=== PATIENT | male | born 1940 | race Caucasian/White ===

== ENCOUNTER 2018-09-07 06:35 | Inpatient (IN) | payer MEDICARE, OTHER ==
--- NOTE | 2018-09-07 06:52 | ED ---
HPI Chest Pain - HPI Summary HPI Summary: Pt. is a 77 y.o male who presents to the with mild chest pain and increased shortness of breath over the last few days. Pt. with a hx of CABG, HTN, CHF, afib, and COPD. Pt. denies increased cough or fever. Denies abd. pain, V/D, urinary sxs. Pt. states he use to take a diuretic but stopped because he did not like the increased urination. Pt. lives at home with . He does not wear oxygen at this time. Symptoms are moderate in severity. Ambulation and activity makes sxs worse. Resting still makes sxs better . - History of Current Complaint Chief Complaint: EDChestPainROMI Time Seen by Provider: 09/07/18 06:51 Hx Obtained From: Patient Pain Intensity: 7 - Allergy/Home Medications Allergies/Adverse Reactions: Allergies Allergy/AdvReac Type Severity Reaction Status Date / Time ramipril Allergy Coughing Verified 09/07/18 06:56 Home Medications: Home Medications Aspirin [Aspirin EC] 81 mg PO DAILY 09/07/18 [History Confirmed 09/07/18] Folic Acid 800 mcg PO DAILY 09/07/18 [History Confirmed 09/07/18] Krill/[place]-3/Dha/Epa/Lipids [Krill Oil [place]-3] 1 cap PO DAILY 09/07/18 [ History Confirmed 09/07/18] Multivitamin with Minerals [One Daily Complete] 1 each PO DAILY 09/07/18 [ History Confirmed 09/07/18] Simvastatin TAB(NF) [Zocor 10 MG (NF)] 10 mg PO DAILY 09/07/18 [History Confirmed 09/07/18] PMH/Surg Hx/FS Hx/Imm Hx Previously Healthy: Yes Endocrine/Hematology History: Reports: Hx Anticoagulant Therapy - Coumadin Denies: Hx Diabetes, Hx Thyroid Disease Cardiovascular History: Reports: Hx Hypertension Denies: Hx Congestive Heart Failure, Hx Deep Vein Thrombosis, Hx Myocardial Infarction, Hx Pacemaker/ICD Respiratory History: Reports: Hx Chronic Obstructive Pulmonary Disease (COPD), Hx Pulmonary Embolism - Around 2011 Denies: Hx Asthma, Hx Lung Cancer, Hx Pneumonia GI History: Denies: Hx Gall Bladder Disease, Hx Gastrointestinal Bleed, Hx Ulcer, Hx Urosepsis History: Denies: Hx Kidney Stones, Hx Renal Disease Neurological History: Denies: Hx Dementia, Hx Migraine, Hx Seizures, Hx Transient Ischemic Attacks (TIA) Psychiatric History: Denies: Hx Anxiety, Hx Depression, Hx Schizophrenia, Hx Bipolar Disorder - Surgical History Surgery Procedure, Year, and Place: open heart, varicose veings, R knee Infectious Disease History: No Infectious Disease History: Denies: Traveled Outside the [place] in Last 30 Days - Family History Known Family History: Positive: Non-Contributory Negative: Cardiac Disease, Hypertension - Social History Occupation: Retired Lives: With Family Alcohol Use: Rare Substance Use Type: Reports: None Smoking Status (MU): Former Smoker Type: Cigarettes Amount Used/How Often: 1ppd Length of Time of Smoking/Using Tobacco: approx 40 yrs Review of Systems Positive: Chills Eyes: Negative ENT: Negative Positive: Chest Pain Positive: Shortness Of Breath. Negative: Cough Gastrointestinal: Other - abd. fullness Negative: Abdominal Pain, Vomiting, Diarrhea, Nausea Genitourinary: Negative Negative: dysuria Musculoskeletal: Negative Skin: Negative Neurological: Negative All Other Systems Reviewed And Are Negative: Yes Physical Exam Triage Information Reviewed: Yes Vital Signs On Initial Exam: Initial Vitals Temp Pulse Resp BP Pulse Ox 97.9 F 72 16 156/100 97 09/07/18 06:38 09/07/18 06:38 09/07/18 06:38 09/07/18 06:38 09/07/18 06:38 Vital Signs Reviewed: Yes Appearance: Positive: Well-Appearing - Pt. sitting up in bed in NAD. Talkative. Skin: Positive: Warm, Dry Head/Face: Positive: Normal Head/Face Inspection Eyes: Positive: Normal, EOMI, GINA Neck: Positive: Supple Respiratory/Lung Sounds: Positive: Clear to Auscultation, Breath Sounds Present. Negative: Rales, Rhonchi, Wheezes Cardiovascular: Positive: Normal, RRR Abdomen Description: Positive: Nontender, Soft Musculoskeletal: Positive: Normal, Strength/ROM Intact. Negative: Edema Left, Edema Right Neurological: Positive: Normal, CN Intact II-III Psychiatric: Positive: Affect/Mood Appropriate Diagnostics - Vital Signs Vital Signs Temp Pulse Resp BP Pulse Ox 09/07/18 06:38 97.9 F 72 16 156/100 97 - Laboratory Result Diagrams: 09/07/18 07:24 09/07/18 07:24 Lab Statement: Any lab studies that have been ordered have been reviewed, and results considered in the medical decision making process. Chest Pain Course/Dx - Course Course Of Treatment: Pt. presenting with mild CP and increased SOB. He is aferile. O2 saturation is 97% on RA which is normal. No signs of respiratory distress at rest. ECG done at 0639 shows afib at a rate of 84bpm, normal axis, not ST elevation or depression, similar to prior tracing. CBC unremarkable. CMP shows. Pt. ambulated on RA and became very SOB and O2 saturation dropped to 86% and pt. had to sit down. Pt. states this is very abnormal for him. Suspect secondary to mild CHF exacerbation. Case discussed with hospitalist, Dr. Cowart, who excepts pt. for admission. He recommends 20mg IV lasix. - Chest Pain Differential Diagnosis/HQI/PQRI: Acute MA, ACS, Angina, CHF, Chest Wall, Lower Respiratory Infection, Pulmonary Edema - Diagnoses Provider Diagnoses: CHF exacerbation Discharge - Sign-Out/Discharge Documenting (check all that apply): Patient Departure Patient Received Moderate/Deep Sedation with Procedure: No - Discharge Plan Condition: Stable Disposition: ADMITTED TO [facility] Referrals: Luis MENDOZA [employer] [employer]CHN[employer] [Primary Care Provider] - - Billing Disposition and Condition Condition: STABLE Disposition: Admitted to [facility]
[2018-09-07 07:38] LABS: ABS Basophils 0.1 10^3/ul (0-0.2); ABS Lymphocytes 1.7 10^3/ul (1.0-4.8); ABS Monocytes 0.6 10^3/ul (0-0.8); ABS Neutrophils 5.4 10^3/ul (1.5-7.7); Eosinophil % 0.4 %; Hematocrit 42 % (42-52); Hemoglobin 14.4 g/dL (14.0-18.0); Lymphocyte % 22.1 %; Mean Corpuscular HGB Conc 35 g/dL (31-36); Mean Corpuscular Hemoglobin 33 pg (27-31); Mean Corpuscular Volume 96 fL (80-94); Mean Platelet Volume 7.6 fL (7.4-10.4); Nucleated Red Blood Cells % 0.1; Platelet Count 171 10^3/uL (150-450); Red Blood Count 4.32 10^6 /uL (4.18-5.48); Red Cell Distribution Width 14 % (10-15); White Blood Count 7.8 10^3/uL (3.5-10.8)
[2018-09-07 07:49] LABS: Activated Partial Thrombo Time 29.4 seconds (26.0-38.0); INR 1.55 (0.82-1.09)
[2018-09-07 07:50] LABS: Albumin 4.1 g/dL (3.2-5.2); Albumin/Globulin Ratio 1.2 (1-3); BUN/Creatinine Ratio 12.5 (8-20); Calcium 9.8 mg/dL (8.6-10.3); EGFR African American 71.4 (>60); Globulin 3.3 g/dL (2-4); Magnesium 1.7 mg/dL (1.9-2.7); Total Bilirubin 0.8 mg/dL (0.2-1.0); Total Protein 7.4 g/dL (6.4-8.9)
[2018-09-07 07:51] LABS: Troponin I 0.01 ng/mL (<0.04)
[2018-09-07 08:42] LABS: TSH (Thyroid Stimulating Horm) 1.81 mcIU/mL (0.34-5.60)
[2018-09-07] MEDS ORDERED: Furosemide IV* 10 MG/ML 2 ML VIAL (20 MG) IV ONE (09:06)
[2018-09-07] MEDS ORDERED: Acetaminophen TAB* 325 MG PO ONE (09:09)
[2018-09-07] MEDS ORDERED: Magnesium Sulfate 2 GM IV* 2 GM/50 ML BAG IVPB ONE (11:30)
[2018-09-07 11:31] LABS: C Reactive Protein 1.33 mg/L (<8.01)
[2018-09-07] MEDS ORDERED: Enoxaparin(*) 100 MG/ML SYR SUBCUT ONE (11:33)
[2018-09-07 12:55] LABS: Erythrocyte Sed Rate 19 mm/Hr (0-19)
[2018-09-07] MEDS: amLODIPine TAB* 5 MG PO SCH (13:46)
[2018-09-07] MEDS ORDERED: Acetaminophen TAB* 325 MG ONE (14:00)
[2018-09-07] MEDS: Acetaminophen TAB* 325 MG PO PRN ×2 (14:02→21:12)
[2018-09-07] MEDS ORDERED: Warfarin TAB(*) 3 MG PO SCH (17:00)
[2018-09-07] MEDS: oxyCODONE TAB* 5 MG TAB PO PRN ×2 (17:16→21:12)
[2018-09-07] MEDS ORDERED: Albuterol/Ipratropium NEB.SOL* Albuterol 2.5 MG/Ipratropium 0.5 MG 3 ML INH PRN (17:31)
--- NOTE | 2018-09-07 19:23 | HP ---
CC: Dena Smith NP; Dr. William * HISTORY AND PHYSICAL: DATE OF ADMISSION: 09/07/18 PRIMARY CARE PHYSICIAN: Dena Smith NP CHIEF COMPLAINT: Shortness of breath and severe headache. SUBJECTIVE: This is a 77-year-old male presents to the emergency room for the constellation of symptoms, but it narrows down to 2 major is a headache, severe , posterior, been ongoing for more than 2 weeks, associated with increased shortness of breath and weakness. He visited the emergency room at [facility] for that complaint about 2 times, 1 about 3 weeks ago and 1 was 09/03/18, which is 3 days ago. I was able to obtain the record from 09/03/18 from [facility] where it shows that the patient visited for headache and weakness. He underwent CTA of the chest and CTA of the neck given his presentation of shortness of breath and the headache. The CTA of the neck shows patent carotid artery, no dissection. CTA of the chest was negative for any dissection or pathology. He was discharged with a diagnosis of acute headache. He continued to have these symptoms; therefore, he came into our facility as he is not happy and unpleased with the results so far in the past 2 ER evaluations at [facility]. In the emergency room at our facility, his initial workup included plain CBC which was normal, white count 7.8, hematocrit 42. His chemistry showed sodium 134, chloride 99, BUN 15, creatinine 1.2, potassium 4.0, lactic acid 1.7, magnesium 1.7. AST 19, ALT 13. Troponin 0.01. TSH 1.81 and BNP of 204. His INR is 1.5 and being subtherapeutic considering the fact he should be on Coumadin 9 mg. The patient was seen and evaluated by me in the emergency room. History was obtained as above. On further questioning, the patient tells me that he has been having significant lack of energy where sometimes his legs gives out and he had a fall about a week ago and he has been having more and more progressive dyspnea. We walked him in the emergency room on room air and his saturation dropped to 86%. Given the constellation of his symptoms of the headache and shortness of breath and positive congestive changes on his chest x-ray by my read, we will admit the patient to the inpatient service for CHF exacerbation associated with hypoxia along with severe headache of unknown etiology at the present time. PAST MEDICAL HISTORY: Limited to the history provided by the patient, which is slightly limited by memory recollection from the patient himself is as follows: 1. Hyperlipidemia. 2. History of atrial fibrillation. 3. History of coronary artery disease, status post CABG. 4. Hypertension. 5. History of COPD. 6. History of PE in 2011. MEDICATIONS: As listed in his ER intake: 1. Folic acid 800 mcg daily. 2. [place]y fish oil. 3. Multivitamin daily. 4. Amlodipine 10 mg daily. 5. Baby aspirin 81 mg daily. 6. Losartan 50 mg daily. 7. Zocor 10 daily. 8. Warfarin 9 mg at bedtime. ALLERGIES: He is allergic to RAMIPRIL. FAMILY HISTORY: Negative for any significant history of coronary artery disease or malignancy. SOCIAL HISTORY: He is retired. Quit smoking, used to smoke 1 pack a year; duration, he smoked for about 40 years. No alcohol. REVIEW OF SYSTEMS: As per HPI, significant for severe headache 10/10, posterior , minimal relief with Tylenol. Generalized diffuse body ache and weakness, shortness of breath with minimal exertion. No nausea or vomiting. Denies any chest pain. Denies any nuchal rigidity, blurry vision, or sensitivity to light. PHYSICAL EXAMINATION GENERAL: He is pleasant, cooperative during the exam, lying in bed, complaining of a headache. He is not in any respiratory distress; however, he does get dyspneic with examination. VITAL SIGNS: Temperature 97.4. Pulse 86. Respiratory rate 16. Satting 100%. Blood pressure 158/83. HEENT: Head and Neck: Normocephalic, atraumatic. Supple. No nuchal rigidity. I could not appreciate any carotid bruits or JVD. Moist mucous membranes. Extraocular muscles intact. LUNGS: Fine bibasilar crackles. No expiratory wheezing. ABDOMEN: Positive bowel sounds. Soft, nontender, nondistended. No rebound. No guarding. GENITALIA AND RECTAL: Exam deferred. EXTREMITIES: No pedal edema. Good peripheral pulse bilaterally. No calf tenderness. DIAGNOSTIC STUDIES/LAB DATA: CBC: White count 7.8, hemoglobin 14, hematocrit 42, platelets 171. INR 1.5, D-dimer less than 200. AB.48, pCO2 35, pO2 78 , bicarb 27, saturation 97% on room air. Chemistry: Sodium 134, potassium 4, BUN 15, creatinine 1.2, lactic acid 1.7, mag 1.7. AST 19, ALT 13. Troponin 0.01. TSH 1.81. Chest x-ray: By my read, I do see some cephalization more prominent in the lower one-third of both lung rabago. Normal cardiac silhouette. His EKG shows atrial fibrillation, rate controlled at 84, QTc 465, QRS 103. Stable when compared to his EKG from 06/11/16 with chronic AFib. ASSESSMENT AND PLAN: This is a 77-year-old male with history of coronary artery disease/CABG/atrial fibrillation; hyperlipidemia; chronic obstructive pulmonary disease; pulmonary embolism, on chronic warfarin, comes in for several complaints, more pronounced is his shortness of breath and hypoxemia along with severe headache persistent for greater than 2 weeks. 1. Hypoxemia, most likely secondary to congestive heart failure. I am going to obtain an echocardiogram to assess his LV function. He was given fluids in the emergency room, I am going to reverse it. We will place him on Lasix 20 mg IV x1 now and we will continue on Lasix p.o. 20 mg b.i.d. starting tomorrow. We will put him on telemetry. We will obtain serial cardiac enzymes to rule out any acute coronary syndrome. Further cardiac workup pending his troponin and echocardiogram. We will place him on 2 L nasal cannula and reassess his oxygenation if he continues to require O2 with exertion. 2. Headache, progressive, severe in the past 2 to 3 weeks. I was able to locate record from [facility] of 09/03/18, where he had CTA of the neck. I did not see that they had CTA of the head. Given his history that he fell about a week ago, being on Coumadin, I did request to have a stat CT of the brain in the emergency room. Pending results, we will probably follow up with MRI of the brain with and without contrast and Neurology consultation. We will hold the warfarin and Lovenox until his CT of the brain was obtained. Neurology consultation may be warranted. I do not see the eminent need to have LP at this time given that he is on Coumadin, he has no fever, no white count, but other possible etiology of headache such as subarachnoid hemorrhage should be entertained. Therefore, we will proceed with the MRI of the brain with and without contrast and further consultation with Neurology and follow their recommendations. 3. For his atrial fibrillation, he has Coumadin 9 mg. He tells me it was elevated about a week ago with INR of 6 for which it was held and he just resumed it, which can explain why his INR is low. That makes me more concerned that given he provides me the history of elevated INR a week ago with worsening headache. It is possible that if the CT brain is negative, we may need to proceed with further imaging to rule out subarachnoid hemorrhage; therefore, we will hold his Lovenox and warfarin until this is ruled out. 4. Hypomagnesemia, which can be contributing to his headache. I am going to put him on magnesium sulfate 2 g IV. 5. For his history of chronic obstructive pulmonary disease, although I do not see any home medications such as inhaler or evidence on x-ray, I am going to put him on nebulizer treatment p.r.n. for shortness of breath. 6. For DVT prophylaxis, SCDs for now as we are going to hold his warfarin and Lovenox given his potential workup for subarachnoid hemorrhage. [id number]/[facility] #: [id number] MARCO
[2018-09-07] MEDS: Furosemide TAB* 20 MG PO SCH (20:16)
[2018-09-08] MEDS: oxyCODONE TAB* 5 MG TAB PO PRN ×3 (04:06→23:57)
[2018-09-08 06:31] LABS: ABS Basophils 0.1 10^3/ul (0-0.2); ABS Eosinophils 0.1 10^3/ul (0-0.6); ABS Lymphocytes 2.1 10^3/ul (1.0-4.8); ABS Monocytes 0.8 10^3/ul (0-0.8); ABS Neutrophils 4.7 10^3/ul (1.5-7.7); Eosinophil % 0.9 %; Hematocrit 43 % (42-52); Lymphocyte % 26.6 %; Mean Corpuscular HGB Conc 35 g/dL (31-36); Mean Corpuscular Hemoglobin 34 pg (27-31); Mean Corpuscular Volume 96 fL (80-94); Mean Platelet Volume 7.7 fL (7.4-10.4); Nucleated Red Blood Cells % 0.1; Platelet Count 170 10^3/uL (150-450); Red Blood Count 4.48 10^6 /uL (4.18-5.48); Red Cell Distribution Width 14 % (10-15); White Blood Count 7.7 10^3/uL (3.5-10.8)
[2018-09-08 06:35] LABS: INR 1.43 (0.82-1.09)
[2018-09-08 06:46] LABS: Anion Gap 8 mmol/L (2-11); CO2 Carbon Dioxide 28 mmol/L (22-32); Calcium 9.1 mg/dL (8.6-10.3); Chloride 97 mmol/L (101-111); Magnesium 1.8 mg/dL (1.9-2.7); Potassium 3.9 mmol/L (3.5-5.0); Sodium 133 mmol/L (135-145)
[2018-09-08 06:52] LABS: BUN/Creatinine Ratio 15.4 (8-20); Blood Urea Nitrogen 20 mg/dL (6-24); EGFR African American 65.1 (>60); EGFR Non-African American 53.8 (>60); Glucose 124 mg/dL (70-100); Phosphorus 2.5 mg/dL (2.5-5.0)
[2018-09-08] MEDS: Acetaminophen TAB* 325 MG PO PRN ×2 (07:55→18:45)
[2018-09-08] MEDS: Losartan TAB* 25 MG PO SCH (07:55)
[2018-09-08] MEDS: Furosemide TAB* 20 MG PO SCH (07:56)
[2018-09-08] MEDS: amLODIPine TAB* 5 MG PO SCH (07:56)
[2018-09-08] MEDS: Aspirin EC TAB* 81 MG TAB.EC PO SCH (07:56)
[2018-09-08] MEDS ORDERED: Magnesium Sulfate 1 GM IV* 1 GM/100 ML BAG IV ONE (08:07)
[2018-09-08 09:48] LABS: Folate > 20.00 ng/mL (>3.99)
[2018-09-08] MEDS ORDERED: Perflutren Lipid Microsphere* 3 ML VIAL ONE (11:02)
--- NOTE | 2018-09-08 13:08 | ECHO ---
*[facility]* [place] [address] Fax #: [phone] Transthoracic Echocardiogram Patient: Amado Pedro : 1940 Study Date: 09/08/2018 Age: 77 Gender: M HR: 70 bpm Height: 73 in /185.4 cm BSA: 2.37 m^2 Weight: 249.5 lb /113.4 kg BMI: 33 kg/m^2 *Environmental Sampling Technician: Cecilia Cooper [facility] *Referring Physician: * Tu CowartReading Physician: * Hasmukh Chávez MD Indications: Congestive Heart Failure. History: Atrial fibrillation. Coronary artery disease. Chronic obstructive pulmonary disease. Risk factors: Hypertension. Dyslipidemia. Labs, prior tests, procedures, and surgery: Coronary artery bypass grafting. Conclusions Summary: 1. Left ventricle: Systolic function is mildly to moderately reduced. The estimated ejection fraction is 35-40%. Moderate diffuse hypokinesis. 2. Right ventricle: Systolic function is mildly to moderately reduced. 3. Mitral valve: There is no evidence of stenosis. There is no significant regurgitation. 4. Aortic valve: There is no evidence of stenosis. There is trivial regurgitation. 5. Tricuspid valve: There is trivial regurgitation. 6. Ascending aorta: The ascending aorta is upper normal in size. 7. Pulmonary arteries: Systolic pressure is at the upper limits of normal. 8. Study data: No prior study is available for comparison. Study data: Transthoracic echocardiogram. Procedure: Transthoracic echocardiography was performed. Image quality was suboptimal. Intravenous Definity , 3 mlswas administered. Complete 2D, spectral Doppler, and color flow Doppler. Location: Bedside. Patient status: Inpatient. Patient room number: 449 01. No prior study is available for comparison. Rhythm: Atrial fibrillation. Findings Left ventricle: The cavity size is normal. Wall thickness is mildly to moderately increased. Systolic function is mildly to moderately reduced. The estimated ejection fraction is 35-40%. Moderate diffuse hypokinesis. Left ventricular diastolic function parameters are indeterminate. Right ventricle: The cavity size is normal. Systolic function is mildly to moderately reduced. Left atrium: The atrium is moderately dilated. Right atrium: The atrium is mildly dilated. Mitral valve: The leaflets are mildly thickened. There is no evidence of stenosis. There is no significant regurgitation. Aortic valve: The valve is probably trileaflet. The leaflets are mildly thickened. There is no evidence of stenosis. There is trivial regurgitation. Tricuspid valve: The leaflets are normal thickness. There is no evidence of stenosis. There is trivial regurgitation. Pulmonic valve: Not well visualized. There is no significant regurgitation. Aorta: Aortic root: The aortic root is appears normal. Ascending aorta: The ascending aorta is upper normal in size. Aortic arch: The aortic arch is appears normal. Pericardium: There is no significant pericardial effusion. Pulmonary arteries: Not well visualized. Systolic pressure is at the upper limits of normal. Systemic veins: Inferior vena cava: The vessel is normal in size. The respirophasic diameter changes are in the normal range (>= 50%). Measurements Left ventricle Value Ref Aortic valve continued Value Ref CHRISTIANO, LAX 4.9 cm 4.2 - 5.8 David diam/bsa, ED 0.9 cm/m^2 ----- ESD, LAX 3.5 cm 2.5 - 4.0 Peak v, S 0.85 m/sec ----- FS, LAX 28 % 25 - 43 Peak grad, S 3.0 mm Hg ----- PW, ED, LAX (H) 1.3 cm 0.6 - 1.0 EF 53 % 52 - 72 Mitral valve Value Ref E', lat david, TDI 11.2 cm/sec >=10.0 Peak E 0.71 m/sec ----- E/e', lat david, 6 Peak A 0.01 m/sec --- -- TDI Decel time 160 ms ----- E', med david, TDI 9.9 cm/sec >=7.0 Peak E/A ratio 101 ----- E/e', med david, 7 TDI Pulmonic valve Value Ref E', avg, TDI 10.6 cm/sec Peak v, S 0.65 m/sec --- -- E/e', avg, TDI 7 <=14 Peak grad, S 2.0 mm Hg ----- LVOT Value Ref Tricuspid valve Value Ref Peak prabhakar, S 0.65 m/sec TR peak v 2.5 m/sec <=2.8 Peak RV-RA grad, S 25 mm Hg ----- Ventricular septum Value Ref IVS, ED (H) 1.3 cm 0.6 - 1.0 Aortic root Value Ref Root diam 3.5 cm <4.4 Right ventricle Value Ref CHRISTIANO, LAX 3.5 cm Ascending aorta Value Ref CHRISTIANO minor ax, A4C 2.9 cm 1.9 - 3.5 AAo AP diam, S 3.5 cm ----- mid Pressure, S 33 mm Hg Aortic arch Value Ref Arch diam 2.4 cm ----- Left atrium Value Ref AP dim, ES (H) 4.80 cm 3.00 - Decending aorta Value Ref 4.00 Oscar peak prabhakar 0.36 m/sec ----- ML dim, A4C 4.9 cm SI dim, A4C 6.3 cm Pulmonary artery Value Ref Vol/bsa, ES, A/L (H) 43 ml/m^2 16 - 34 Pressure, S 31.0 mm Hg ----- Right atrium Value Ref Inferior vena cava Value Ref SI dim, ES (H) 5.8 cm 3.4 - 5.3 Diam 1.7 cm ----- ML dim, ES, A4C 4.3 cm 2.6 - 4.4 Estimated RAP 8 mm Hg Aortic valve Value Ref David diam, ED 2.1 cm Legend: (L) and (H) charles values outside specified reference range. Prepared and electronically signed by Hasmukh Chávez MD 09/08/2018 13:08
[2018-09-08] MEDS ORDERED: Gadoteridol* (CONTRAST) 279.3 MG/ML 10 ML IV ONE (13:13)
--- NOTE | 2018-09-08 15:24 | CONS ---
NEUROLOGY CONSULTATION REPORT: DATE OF CONSULT: 09/08/18 CONSULTING PROVIDER: Dr. Tu Cowart. REASON FOR CONSULT: Headache. CHIEF COMPLAINT: Headache. HISTORY OF PRESENT ILLNESS: Mr. Amado Pedro is a 77-year-old man who complains of headache for 2-day duration. He stated that he was doing absolutely nothing when he noticed a sharp stabbing pain at the base of the neck radiating to the left side of the back of the head. He feels little stingers mostly coming from the base of the head. The pain was so painful that touching the skull with his fingertips can trigger the pain. Pain was initially 11/10 in severity, but now is 4/10 in severity. He typically does not have any headaches in the past. He denied any photo or phonophobia. He denied any nausea. He does have light sensitivity, but that is a chronic finding since his LASIK surgery. Changing position of the head does not trigger the pain or headache. He denied any Valsalva-like maneuvers worsening the pain. The patient also complains of bilateral lower extremity fatigue. The patient was admitted to [facility] for CHF and being treated for CHF exacerbation. Labs, imaging, and other diagnostic testing: WBC 7.7, hemoglobin 15, hematocrit 43, platelet count 170, ESR of 19, INR is 1.43. Sodium 133, chloride of 97, anion gap of 8, creatinine of 1.30, lactic acid of 1.7, magnesium of 1.8. TSH of 1.81, B12 is 542. 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 There is no intracranial mass or hemorrhage noted. The patient stated that he went to [facility] last week for similar symptoms and he was just diagnosed with headaches. I mentioned that the headache history is inconsistent given that he informed the examiner that he started having headaches last Saturday, but then he was seen at [place] last week for a similar presentation. The patient stated that the headaches worsened on Saturday, but he did have mild left posterior head pain on and off for the last few weeks. PAST MEDICAL HISTORY: Dyslipidemia, atrial fibrillation; on Coumadin, coronary artery disease; status post CABG in 2010, hypertension, history of COPD, history of PE in 2011. He denied any history of stroke or seizures. MEDICATIONS: 1. Losartan 50 mg p.o. daily. 2. Warfarin 9 mg p.o. at bedtime. 3. Amlodipine 10 mg p.o. daily. 4. Multivitamins. 5. Folic acid. 6. Aspirin 81 mg p.o. daily. 7. Simvastatin 10 mg p.o. daily. ALLERGIES: He is allergic to RAMIPRIL. FAMILY HISTORY: He denied any family history of stroke or seizures. SOCIAL HISTORY: He is retired. He enjoys playing volleyball. He is unable to play volleyball for the past 3 weeks due to the concurrent symptoms. He used to smoke 1 pack per day for about 40 years. He denied any alcohol use. REVIEW OF SYSTEMS: A 14-point review of systems was obtained and was otherwise negative, except for what was mentioned in HPI. PHYSICAL EXAM: Vitals: Temperature of 97.5, pulse of 88, respiratory rate of 18, oxygen saturation 96, blood pressure 156/96. General: Well-nourished, well - developed man in no acute distress. Head: Atraumatic and normocephalic. Eyes: Normal conjunctivae and sclerae. Neck: No neck rigidity or tenderness. There is occipital notch tenderness in the occipital region on the left side. There is reproducible pain in that area. Pulmonary: Crackles at the base of the lungs bilaterally. Cardiac: No murmurs. Regular rate and rhythm. Extremities: Slight venous congestion with no evidence of hammertoes or high arches. No edema. Skin: No skin lesions or laceration. Psych: Affect is normal with a happy mood. Easy to establish rapport. Neurological Examination : Alert and oriented to person, place, time, and general circumstance. Speech and language comprehension were assessed and found to be normal. Cranial Nerves : Pupils equal, round, and reactive to light. Extraocular muscles are intact. There is normal sensation to light touch throughout the right and left sides. Mild left facial droop. Tongue is symmetric midline with no atrophy or fasciculation. Motor Examination: Normal tone and bulk throughout, 5/5 strength in upper and lower extremities bilaterally. Sensation is intact throughout. He has absent vibratory sensation at the great toes, but present at the ankles. Normal proprioception at the great toes. Reflexes trace throughout the uppers and 0 at the lower extremity bilaterally. Coordination. Normal [id number] and [id number] testing bilaterally. Gait: Normal stance , no ataxia. ASSESSMENT AND PLAN: Mr. Amado Pedro is a 77-year-old man who has headaches and was hospitalized at [facility] for congestive heart failure exacerbation. 1. 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 I do not suspect he has meningitis. The patient does not meet criteria for migraine headaches. 2. Congestive heart failure exacerbation. 3. Atrial fibrillation, on Coumadin with subtherapeutic INR as the Coumadin was held for a possible lumbar puncture. RECOMMENDATIONS: No indication for a lumbar puncture at this time given that the patient's headaches are most likely due to occipital neuralgia and cervicalgia and are not related to meningitis or subarachnoid hemorrhage. The pain is so focal that it is not consistent with subarachnoid hemorrhage. Furthermore, the pain can be reproducible with palpation around the region. When discussing the lumbar puncture, the patient even refused to undergo the procedure if needed. I do not think it is needed at this time. I agree with proceeding with an MRI of the brain with and without contrast. We discussed treatment modalities. I discussed an occipital nerve block versus oral GABAergic medications. The patient opted to trial gabapentin 100 mg at night to increase to 300 mg at night after 3 days to see if the headaches improved. Currently, the headaches have improved overnight and the pain scale is 4/10 after the oxycodone. I recommend outpatient followup with [facility] neurology. We will set a followup appointment. I informed the patient that if his headaches worsen, we may consider obtaining a lumbar puncture, but at this current time there is no indication for it. In regards to his lower extremity fatigue, I suspect this is likely related to his current congestive heart failure exacerbation and not related to a neurological issue. He does not have any weakness or reflex asymmetry on examination. Continue supportive care. Continue neuro checks every 4 hours. If the MRI is negative, there are no further recommendations from the neurology standpoint. Please contact us for any questions or concerns. [id number]/MELANIA #: [id number] MARCO
[2018-09-08] MEDS ORDERED: Potassium Chlor TAB* 10 MEQ TAB.ER PO ONE (17:20)
[2018-09-08] MEDS ORDERED: Senna TAB PO PRN (17:22)
[2018-09-08] MEDS ORDERED: Magnesium Hydroxide LIQ* 30 ML UDC PO PRN (17:23)
--- NOTE | 2018-09-08 17:25 | PN ---
Subjective Date of Service: 09/08/18 Interval History: No overnight events. Pt reports improvement in headache from admission but also thinks it is "coming back". Denies focal weakness or visual changes. Also with SOB "all the time" but then admits only on exertion and that it is chronic. Denies PND or orthopnea. Denies LE edema. Also reporting no BM in days. Objective Active Medications: Acetaminophen (Tylenol Tab*) 650 mg PO Q4H PRN PRN Reason: PAIN Last Admin: 09/08/18 07:55 Dose: 650 mg Albuterol/Ipratropium (Duoneb (Albuterol 2.5 Mg/Ipratropium 0.5 Mg)) 1 neb INH Q2H PRN PRN Reason: SOB/WHEEZING Amlodipine Besylate (Norvasc Tab*) 10 mg PO DAILY [facility] Last Admin: 09/08/18 07:56 Dose: 10 mg Aspirin (Aspirin Ec Tab*) 81 mg PO DAILY [facility] Last Admin: 09/08/18 07:56 Dose: 81 mg Furosemide (Lasix Tab*) 20 mg PO BID [facility] Last Admin: 09/08/18 07:56 Dose: 20 mg Losartan Potassium (Cozaar Tab*) 50 mg PO DAILY [facility] Last Admin: 09/08/18 07:55 Dose: 50 mg Oxycodone HCl (Roxycodone Tab*) 5 mg PO Q4H PRN PRN Reason: HEADACHE Last Admin: 09/08/18 11:24 Dose: 5 mg Simvastatin (Zocor(Nf)) 10 mg PO BEDTIME [facility] Vital Signs - 8 hr 09/08/18 09/08/18 09/08/18 11:24 11:45 14:21 Temperature 97.5 F Pulse Rate 72 57 Respiratory 16 20 18 Rate Blood Pressure 166/96 147/92 (mmHg) O2 Sat by Pulse 96 100 Oximetry 09/08/18 15:30 Temperature 97.9 F Pulse Rate 80 Respiratory 16 Rate Blood Pressure 153/91 (mmHg) O2 Sat by Pulse 99 Oximetry Oxygen Devices in Use Now: None Appearance: well appearing, interactive and in NAD Ears/Nose/Mouth/Throat: Clear Oropharnyx, Mucous Membranes Moist Neck: NL Appearance and Movements; NL JVP, Trachea Midline Respiratory: Symmetrical Chest Expansion and Respiratory Effort, Clear to Auscultation Cardiovascular: NL Sounds; No Murmurs; No JVD, RRR Abdominal: NL Sounds; No Tenderness; No Distention, No Hepatosplenomegaly Extremities: No Edema Skin: No Rash or Ulcers Neurological: Alert and Oriented x 3 Result Diagrams: 09/08/18 06:07 09/08/18 06:07 Assess/Plan/Problems-Billing Assessment: 77M with afib on warfarin, CAD s/p CABG, HFrEF 35-40%, HTN, COPD, h/o PE 2011, who presents with severe L-sided posterior headache for 2 weeks, also with SOB ( although this appears chronic). - Patient Problems (1) Headache Comment: MRI without etiology. Thought to be occipital neuralgia. Improving. - seen and evaluated by Neuro, who recommends gabapentin (2) Heart failure with reduced ejection fraction Comment: Echo here with EF 35-40% with diffuse moderate hypokinesis. Required oxygen on presentation but hypoxemia quickly resolved after furosemide IV - cont on furosemide 20mg PO daily; did not have diuretic at home - f/u outside records - cont home ARB, will start on metoprolol now (3) COPD (chronic obstructive pulmonary disease) Comment: Reports chronic SOB. Noted that he is not on home inhalers - start Spiriva daily - cont nebs prn (4) Atrial fibrillation Comment: Was not on rate control at home. Thought he felt "palpitations" before presenting to hospital. No tachycardia on tele. - starting on metoprolol for HFrEF - cont home warfarin by INR (5) CAD (coronary artery disease) Comment: s/p CABG - cont home aspirin and statin (6) DVT prophylaxis Comment: on warfarin
[2018-09-08] MEDS ORDERED: Spiriva Inhaler DEVICE* 1 EACH DEVICE INH ONE (18:00)
[2018-09-08] MEDS ORDERED: Warfarin TAB(*) 3 MG PO ONE (18:00)
[2018-09-08] MEDS ORDERED: Famotidine TAB* 20 MG PO PRN (18:43)
[2018-09-08] MEDS: Tiotropium CAP.INH* CAP.INH/18 MCG (USE ORDER SET !) INH SCH (19:56)
[2018-09-08] MEDS ORDERED: CMCS:Simvastatin TAB(NF) 10 MG TAB PO SCH (21:00)
[2018-09-08] MEDS ORDERED: Metoprolol Succinate XL TAB* 25 MG PO SCH (21:00)
[2018-09-08] MEDS ORDERED: Gabapentin CAP(*) 100 MG PO SCH (21:00)
[2018-09-09] MEDS: oxyCODONE TAB* 5 MG TAB PO PRN (06:00)
[2018-09-09 07:00] LABS: Hematocrit 43 % (42-52); Hemoglobin 15.1 g/dL (14.0-18.0)
[2018-09-09 07:01] LABS: INR 1.36 (0.82-1.09)
[2018-09-09 07:16] LABS: BUN/Creatinine Ratio 19.8 (8-20); Calcium 9.1 mg/dL (8.6-10.3); EGFR African American 78.1 (>60); EGFR Non-African American 64.6 (>60); Magnesium 1.9 mg/dL (1.9-2.7); Potassium 4.1 mmol/L (3.5-5.0)
[2018-09-09] MEDS ORDERED: Magnesium Sulfate 1 GM IV* 1 GM/100 ML BAG IV ONE (07:36)
[2018-09-09] MEDS: Acetaminophen TAB* 325 MG PO PRN (07:50)
[2018-09-09] MEDS: amLODIPine TAB* 5 MG PO SCH (07:51)
[2018-09-09] MEDS: Losartan TAB* 25 MG PO SCH (07:51)
[2018-09-09] MEDS: Aspirin EC TAB* 81 MG TAB.EC PO SCH (07:51)
[2018-09-09] MEDS: Tiotropium CAP.INH* CAP.INH/18 MCG (USE ORDER SET !) INH SCH (08:03)
[2018-09-09] MEDS ORDERED: Furosemide TAB* 20 MG PO SCH (09:00)
[2018-09-09 11:45] VITALS: BP 151/100
--- NOTE | 2018-09-09 15:18 | DS ---
CC: Dena Smith NP * DISCHARGE SUMMARY: DATE OF ADMISSION: 09/07/18 DATE OF DISCHARGE: 09/09/18 PRIMARY CARE PROVIDER: Dena Smith NP. PRIMARY DIAGNOSES: 1. Occipital neuralgia. 2. Heart failure, reduced ejection fraction. SECONDARY DIAGNOSES: 1. History of coronary artery disease. 2. History of atrial fibrillation. 3. Heartburn. DISCHARGE MEDICATIONS: 1. Gabapentin 100 mg nightly. 2. Metoprolol succinate 25 mg nightly. 3. Losartan 50 mg daily. 4. Simvastatin 10 mg daily. 5. Tiotropium 1 inhalation daily. 6. Aspirin 81 mg daily. 7. Amlodipine 10 mg daily. 8. Warfarin 9 mg at bedtime, adjusted per INR. 9. Multivitamin. 10. Folic acid. 11. [place]-3. HISTORY OF PRESENT ILLNESS: This is a 77-year-old man with history of atrial fibrillation; on warfarin, CAD; status post CABG, COPD, PE in 2011, and hypertension who is presenting with a constellation of symptoms but mostly is complaining of headache, increased shortness of breath, and weakness. He states that the headache is severe posterior and has been going on for more than 2 weeks. Approximately 2 weeks ago, he presented to [facility] for this complaint and then presented again a few days prior to admission. It appears that at [facility] he underwent a CTA of the chest and neck, which showed patent carotid arteries without dissection. The CT of the chest was negative for any dissection or pathology. He was discharged with diagnosis of acute headache; however, he continued to have these symptoms, so he came to our facility as he was not happy and unpleased so far with his evaluation at [facility]. HOSPITAL COURSE: In our emergency room, his general labs were unremarkable. He had a BNP of 204 and INR was 1.5, which is subtherapeutic. He was admitted to the medical service for workup of headache with MRI ordered. Given the patient's progressive dyspnea and hypoxia on initial presentation with oxygen 86 % on room air, he was given furosemide IV with excellent urine output. The patient did not require any further diuresis during hospitalization as his shortness of breath completely resolved by next morning. He underwent an echocardiogram, which showed heart failure, reduced ejection fraction. We were unable to obtain outside records during this admission, but the patient reports that he was told in the past he had decreased heart function. His heart failure reduced ejection fraction regimen was optimized by adding a beta marcella. As the patient also reported several years of shortness of breath and does have a history of COPD, he was also initiated on tiotropium. The patient was seen and evaluated by neurology and underwent an MRI of his brain, which was unremarkable. It was thought that his headaches were from occipital neuralgia. The patient does report recently feeling much better after going to a chiropractor, but then lifting something heavy at home and had return of his symptoms. His symptoms were also reproducible on palpation on exam. He was started on gabapentin and reports significant improvement in his headaches. On day of discharge, 10-point review of systems was performed and significant only for mild headache improved from admission with resolution of shortness of breath. He also reports some numbness in his left arm when he sleeps on his left side that resolved after not lying on his left side anymore. PHYSICAL EXAMINATION: He is afebrile, heart rate 58, blood pressure 151/100, respiratory rate 18, oxygen saturation 94% on room air. In general, he is a well- appearing man, alert and interactive, making jokes, in no acute distress. Neck: No JVD. Supple. HEENT: Moist mucous membranes. OP clear. Heart: Irregularly irregular. No murmurs, gallops, or rubs. Lungs: Clear to auscultation bilaterally. Abdomen: Soft, nontender, and nondistended. Extremities: Warm and well perfused. No evidence of edema. Neuro: A and O x3. Sensation intact bilaterally. CN II through XII intact. Motor 5/5 in the upper and lower extremities. Gait normal. PERTINENT STUDIES AND LABORATORY DATA: INR 1.36 on discharge. Sodium low 130s throughout hospital admission. Vitamin B12 of 542. Folate over 20. The patient is supplementing. TSH 1.81. Lyme total antibody positive. Lyme Western blot for confirmatory testing is still pending on day of discharge. Chest x-ray showed clear lung rabago. Transthoracic echocardiogram showed systolic function 35% to 40% with moderate diffuse hypokinesis with RV systolic function mildly to moderately reduced. EKG showed atrial fibrillation with rate 84. DISCHARGE PLAN: The patient is to follow up closely with his PCP and reporting manager for ongoing monitoring of his COPD and heart failure. Of note, while admitted for heart failure, he was initiated on a beta marcella for optimal heart failure with reduced ejection fraction regimen and also for his COPD and history of chronic shortness of breath, he was started on Spiriva inhaler. He was given furosemide on admission, but was quickly euvolemic and never showed signs of lower extremity edema or volume overload on chest x-ray, so this medication was not continued, especially given his sodium in the low 130s. However, his volume status and sodium should continue to be followed. He was also referred to [facility] for followup of his headache. This admission, he was initiated on gabapentin 100 mg nightly, which may be uptitrated to 300 mg nightly as needed and he should follow up his symptoms with his PCP and neurology here. Also of note, his INR was subtherapeutic, so he may need more than his current home dose of 9 mg and he was educated to follow closely in [facility]. Lastly, his initial Lyme antibody did result positive; however, this has not been confirmed yet by Western blot, so this lab will need to be followed up. The patient did not have a recent concerning tick bite or a rash, so a decision was made to not treat at this time. The patient does state that a few years ago he was bit by a tick and treated with a course of antibiotics, so it is possible that he no longer has an active Lyme infection, but his antibodies are just persistently positive. The patient was educated on return precautions, which include but are not limited to worsening of headaches associated with focal neuro symptoms or vomiting as well as chest pain, fevers, or new rash. DISPOSITION: Home. CONDITION: Good. TIME SPENT: Approximately 60 minutes were spent on the discharge of this patient, more than half of which was spent with care and coordination at bedside for interview and exam. [id number]/[facility] #: [id number] [place]CO
[2018-09-09] MEDS ORDERED: Warfarin TAB(*) 5 MG PO ONE (17:00)
[2018-09-09] MEDS ORDERED: Warfarin TAB(*) 4 MG PO ONE (17:00)
[2018-09-11 14:20] LABS: Anaplasma phagocytophilum Negative (Negative); B. miyamotoi PCR, B Negative (Negative); Babesia divergens/MO-1 Negative (Negative); Babesia ducani Negative (Negative); Ehrlichia chaffeensis Negative (Negative); Ehrlichia ewingii/canis Negative (Negative); Ehrlichia muris eauclairensis Negative (Negative)
== END 2018-09-09 15:12 | disposition home or self-care (01) | DRG 551 ==
LOC: ED 06:35 → MEDTELE 11:20
PROVIDERS: ADMIT Internal Medicine; ATTEND Internal Medicine
DX: M54.81 Occipital neuralgia (principal); I50.23 Acute on chronic systolic (congestive) heart failure; I11.0 Hypertensive heart disease with heart failure; E78.5 Hyperlipidemia, unspecified; I48.91 Unspecified atrial fibrillation; I25.10 Atherosclerotic heart disease of native coronary artery without angina pectoris; J44.9 Chronic obstructive pulmonary disease, unspecified; R79.1 Abnormal coagulation profile; R09.02 Hypoxemia; E83.42 Hypomagnesemia; R12 Heartburn; Z79.82 Long term (current) use of aspirin; Z79.01 Long term (current) use of anticoagulants; Z95.1 Presence of aortocoronary bypass graft; Z86.711 Personal history of pulmonary embolism; Z88.8 Allergy status to other drugs, medicaments and biological substances; Z87.891 Personal history of nicotine dependence
CPT/HCPCS: 36415; 70450; 70544; 70553; 71045; 80048; 80053; 82607; 82746; 82803; 83605; 83735; 83880; 84100; 84443; 84484; 85014; 85018; 85025; 85379; 85610; 85652; 85730; 86140; 86617; 86618; 87798; 93005; 93306; 94640; 99284; A9270-GY; A9579; C8929; J1650; J1940; J3475

== ENCOUNTER 2018-09-10 19:36 | Inpatient (IN) | payer MEDICARE, OTHER ==
[2018-09-10 21:21] LABS: ABS Basophils 0.1 10^3/ul (0-0.2); ABS Eosinophils 0.1 10^3/ul (0-0.6); ABS Lymphocytes 2.6 10^3/ul (1.0-4.8); ABS Monocytes 1.2 10^3/ul (0-0.8); ABS Neutrophils 7.3 10^3/ul (1.5-7.7); Eosinophil % 1.1 %; Hematocrit 44 % (42-52); Hemoglobin 14.9 g/dL (14.0-18.0); Lymphocyte % 23.4 %; Mean Corpuscular HGB Conc 34 g/dL (31-36); Mean Corpuscular Hemoglobin 33 pg (27-31); Mean Corpuscular Volume 96 fL (80-94); Mean Platelet Volume 7.5 fL (7.4-10.4); Nucleated Red Blood Cells % 0.1; Platelet Count 182 10^3/uL (150-450); Red Blood Count 4.58 10^6 /uL (4.18-5.48); Red Cell Distribution Width 14 % (10-15); White Blood Count 11.3 10^3/uL (3.5-10.8)
[2018-09-10 21:29] LABS: INR 1.95 (0.82-1.09)
[2018-09-10 21:39] LABS: Albumin 3.9 g/dL (3.2-5.2); Albumin/Globulin Ratio 1.1 (1-3); BUN/Creatinine Ratio 21.9 (8-20); Calcium 9.4 mg/dL (8.6-10.3); EGFR African American 61.1 (>60); EGFR Non-African American 50.5 (>60); Globulin 3.4 g/dL (2-4); Potassium 4.1 mmol/L (3.5-5.0); Total Bilirubin 0.6 mg/dL (0.2-1.0); Total Protein 7.3 g/dL (6.4-8.9)
[2018-09-10 21:42] LABS: Troponin I 0.01 ng/mL (<0.04)
[2018-09-10] MEDS ORDERED: Albuterol/Ipratropium NEB.SOL* Albuterol 2.5 MG/Ipratropium 0.5 MG 3 ML INH ONE (22:26)
--- NOTE | 2018-09-10 22:42 | ED ---
Shortness of Breath - HPI Summary HPI Summary: 78-year-old male presents with chest pain and shortness of breath today. Daughter states that they found him in bed complaining of chest pressure. He states the chest pressure has improved and does not currently have it. He states he is still short of breath. he states has not been ambulate to due to sob. He was discharged from the hospital yesterday. Daughter concerned because he is not able to do his normal ADLs. States she's been more agitated than normal. She is concerned that they sent the patient home and his shortness of breath was not back to his baseline. Patient states though that shortness of breath is gradually increasing over the past month. Has not noticed any increased swelling into legs. No bowel pain. he admits to constipation. No fevers. he has been feeling very weak. had testing for lyme last time awaiting on results. He lives with who he cares for. has history of copd and chf. is on oxygen at home occasional. has been admitting to constipation. no vomiting. - History of Current Complaint Chief Complaint: EDChestPainROMI Time Seen by Provider: 09/10/18 22:06 - Allergy/Home Medications Allergies/Adverse Reactions: Allergies Allergy/AdvReac Type Severity Reaction Status Date / Time ramipril Allergy Coughing Verified 09/10/18 19:46 PMH/Surg Hx/FS Hx/Imm Hx Endocrine/Hematology History: Reports: Hx Anticoagulant Therapy - Coumadin Denies: Hx Diabetes, Hx Thyroid Disease Cardiovascular History: Reports: Hx Hypertension Denies: Hx Congestive Heart Failure, Hx Deep Vein Thrombosis, Hx Myocardial Infarction, Hx Pacemaker/ICD Respiratory History: Reports: Hx Chronic Obstructive Pulmonary Disease (COPD), Hx Pulmonary Embolism - Around 2011, Other Respiratory Problems/Disorders - PE. Denies: Hx Asthma, Hx Lung Cancer, Hx Pneumonia GI History: Denies: Hx Gall Bladder Disease, Hx Gastrointestinal Bleed, Hx Ulcer, Hx Urosepsis History: Denies: Hx Kidney Stones, Hx Renal Disease Sensory History: Denies: Hx Contacts or Glasses, Hx Hearing Aid Opthamlomology History: Denies: Hx Contacts or Glasses Neurological History: Denies: Hx Dementia, Hx Migraine, Hx Seizures, Hx Transient Ischemic Attacks (TIA) Psychiatric History: Denies: Hx Anxiety, Hx Depression, Hx Panic Disorder, Hx Schizophrenia, Hx Bipolar Disorder - Surgical History Surgery Procedure, Year, and Place: OPEN HEART QUAD BYPASS 2010;. CARDIAC STENTS ;. HERNIA REPAIR ;. LASIX;. VARICOSE VEINS;. RIGHT KNEE;. RIGHT HAND - 22G SHOT; Infectious Disease History: No Infectious Disease History: Denies: Traveled Outside the [place] in Last 30 Days - 1 - Family History Known Family History: Positive: Non-Contributory Negative: Cardiac Disease, Hypertension - Social History Alcohol Use: Rare Substance Use Type: Reports: None Smoking Status (MU): Former Smoker Type: Cigarettes Amount Used/How Often: 1ppd Length of Time of Smoking/Using Tobacco: approx 40 yrs Review of Systems Positive: Fatigue. Negative: Fever Positive: Chest Pain Positive: Shortness Of Breath Positive: Anxious All Other Systems Reviewed And Are Negative: Yes Physical Exam Triage Information Reviewed: Yes Vital Signs On Initial Exam: Initial Vitals Temp Pulse Resp BP Pulse Ox 98 F 81 22 153/77 99 09/10/18 19:43 09/10/18 19:43 09/10/18 19:43 09/10/18 19:43 09/10/18 19:43 Vital Signs Reviewed: Yes Appearance: Positive: Well-Appearing Skin: Positive: Warm, Dry Head/Face: Positive: Normal Head/Face Inspection Eyes: Positive: Normal, Conjunctiva Clear ENT: Positive: Pharynx normal Respiratory/Lung Sounds: Positive: Breath Sounds Present, Wheezes - slight Cardiovascular: Positive: Normal, RRR Abdomen Description: Positive: Nontender, Soft Bowel Sounds: Positive: Present Musculoskeletal: Negative: Edema Left, Edema Right Neurological: Positive: Normal Psychiatric: Positive: Normal Diagnostics - Vital Signs Vital Signs Temp Pulse Resp BP Pulse Ox 09/10/18 22:13 70 18 171/100 98 09/10/18 22:12 6 09/10/18 21:42 97.1 F 69 22 172/81 97 09/10/18 19:43 98 F 81 22 153/77 99 - Laboratory Lab Results: Lab Results 09/10/18 09/10/18 09/10/18 Range/Units 21:12 21:12 21:12 WBC 11.3 H (3.5-10.8) 10^3/uL RBC 4.58 (4.18-5.48) 10^6 /uL Hgb 14.9 (14.0-18.0) g/dL Hct 44 (42-52) % MCV 96 H (80-94) fL MCH 33 H (27-31) pg MCHC 34 (31-36) g/dL RDW 14 (10-15) % Plt Count 182 (150-450) 10^3/uL MPV 7.5 (7.4-10.4) fL Neut % (Auto) 64.7 % Lymph % (Auto) 23.4 % [place] % (Auto) 10.3 % Eos % (Auto) 1.1 % Baso % (Auto) 0.5 % Absolute Neuts (auto) 7.3 (1.5-7.7) 10^3/ul Absolute Lymphs (auto) 2.6 (1.0-4.8) 10^3/ul Absolute Monos (auto) 1.2 H (0-0.8) 10^3/ul Absolute Eos (auto) 0.1 (0-0.6) 10^3/ul Absolute Basos (auto) 0.1 (0-0.2) 10^3/ul Absolute Nucleated RBC 0.0 10^3/ul Nucleated RBC % 0.1 INR (Anticoag Therapy) 1.95 H (0.82-1.09) Sodium 130 L (135-145) mmol/L Potassium 4.1 (3.5-5.0) mmol/L Chloride 95 L (101-111) mmol/L Carbon Dioxide 27 (22-32) mmol/L Anion Gap 8 (2-11) mmol/L BUN 30 H (6-24) mg/dL Creatinine 1.37 H (0.67-1.17) mg/dL Est GFR ( Amer) 61.1 (>60) Est GFR (Non-Af Amer) 50.5 (>60) BUN/Creatinine Ratio 21.9 H (8-20) Glucose 111 H (70-100) mg/dL Calcium 9.4 (8.6-10.3) mg/dL Total Bilirubin 0.60 (0.2-1.0) mg/dL AST 24 (13-39) U/L ALT 18 (7-52) U/L Alkaline Phosphatase 62 (34-104) U/L Troponin I 0.01 (<0.04) ng/mL Total Protein 7.3 (6.4-8.9) g/dL Albumin 3.9 (3.2-5.2) g/dL Globulin 3.4 (2-4) g/dL Albumin/Globulin Ratio 1.1 (1-3) Result Diagrams: 09/10/18 21:12 09/10/18 21:12 Lab Statement: Any lab studies that have been ordered have been reviewed, and results considered in the medical decision making process. - Radiology chest Radiology Interpretation Completed By: ED Physician Summary of Radiographic Findings: mild vascular congestion abd Radiology Interpretation Completed By: ED Physician Summary of Radiographic Findings: stool throughout - EKG No standard instances Cardiac Rate: NL EKG Rhythm: Atrial Fibrillation Summary of EKG Findings: a fib Re-Evaluation - Re-Evaluation First Eval Re-Evaluation Time: 23:42 Comment: slight wheeze Second Eval Comment: unable to ambulate without sob, went over results from last visit and lyme did come back positive so will treat with doxycycline. Course/Dx - Course Course Of Treatment: 78-year-old male presents with chest pain and shortness of breath today. Daughter states that they found him in bed complaining of chest pressure. He states the chest pressure has improved and does not currently have it. He states he is still short of breath. he states has not been ambulate to due to sob. He was discharged from the hospital yesterday. Daughter concerned because he is not able to do his normal ADLs. States she's been more agitated than normal. She is concerned that they sent the patient home and his shortness of breath was not back to his baseline. Patient states though that shortness of breath is gradually increasing over the past month. Has not noticed any increased swelling into legs. No bowel pain. he admits to constipation. No fevers. he has been feeling very weak. had testing for lyme last time awaiting on results. He lives with who he cares for. has history of copd and chf. is on oxygen at home occasional. on exam lungs slight wheeze noted. ekg shows a fib. gave breathing treatment with improvement. wbc 11. bnp normal. troponin zero. family states does not want to take patient home as not safe at home and unable to do adls. patient was attempted to ambulate and was unable to do so without becoming short of breath. lyme came back positive so start treatment with doxycycline. discussed case with dr ioana who agrees to admit. - Diagnoses Differential Diagnosis/HQI/PQRI: Positive: CHF, COPD Exacerbation, CA Provider Diagnoses: Lyme disease, Chest pain, Shortness of breath, Constipation Discharge - Sign-Out/Discharge Documenting (check all that apply): Patient Departure - Discharge Plan Condition: Stable Disposition: ADMITTED TO [facility] - Billing Disposition and Condition Condition: STABLE Disposition: Admitted to [facility]
[2018-09-10] MEDS ORDERED: methylPREDNISolone 125 MG* 2 ML VIAL IV ONE (23:41)
[2018-09-10] MEDS ORDERED: LORazepam TAB(*) 0.5 MG PO ONE (23:41)
[2018-09-11] MEDS ORDERED: DOXYcycline CAP(*) 100 MG PO ONE (00:33)
[2018-09-11] MEDS ORDERED: Acetaminophen TAB* 325 MG PO ONE (01:02)
[2018-09-11] MEDS ORDERED: Metoprolol Succinate XL TAB* 50 MG PO ONE (01:33)
[2018-09-11] MEDS ORDERED: Morphine INJ* 2 MG/ML 1 ML SYRINGE (TWO MG - NEW SYRINGE VERSION) IV PRN (02:06)
[2018-09-11] MEDS ORDERED: Albuterol/Ipratropium NEB.SOL* Albuterol 2.5 MG/Ipratropium 0.5 MG 3 ML INH PRN (02:06)
[2018-09-11] MEDS: Losartan TAB* 25 MG PO SCH ×2 (03:01→08:13)
[2018-09-11] MEDS ORDERED: Heparin VIAL(*) 5000 UNITS/ML VIAL (FIVE THOUSAND) SUBCUT SCH (06:00)
--- NOTE | 2018-09-11 06:09 | HP ---
CC: Dena Smith NP; Dr. Dr. Victoria * HISTORY AND PHYSICAL: DATE OF ADMISSION: 09/11/18 PRIMARY CARE PROVIDER: Dena Smith NP CHIEF COMPLAINT: Chest pain, shortness of breath, and "I need an antibiotic for Lyme." HISTORY OF PRESENT ILLNESS: Mr. Amado Pedro who just turned 78-year-old was discharged from hospital on 09/09/18. He came in back to the hospital on 09/10/18 in the evening with complaints of needing an antibiotic for his Lyme disease that he was diagnosed with and his testing turned out to be positive after he was discharged. As per the emergency department provider, the patient's daughter brought the patient to the hospital and refused to take him back home due to his complaints of chest pain and shortness of breath. The patient himself seen without his daughter since she left and the patient is being admitted just before 2 a.m. The patient himself complains of no shortness of breath than "usual." The patient stated that he has chronic shortness of breath due to his COPD and uses oxygen intermittently at home. The shortness of breath had not been any worse than his chronic issues, but he does complain of chest tightness with exercise and that has been chronic for several years now. He stated his heavy equipment field mechanic is Dr. Victoria and he has not had cardiac stress test for "a few years." He is going to be placed on overnight observation with the diagnosis of chest pain to rule out angina. PAST MEDICAL HISTORY: 1. Hyperlipidemia. 2. History of chronic atrial fibrillation. 3. Coronary artery disease status post coronary artery bypass grafting in "approximately 2010" as per the patient. 4. Hypertension. 5. History of COPD, on intermittent oxygen at home. 6. History of PE in 2011. CURRENT MEDICATIONS: Include: 1. [place] 3 fatty acids 1 capsule daily. 2. Aspirin 81 mg daily. 3. Coumadin 9 mg at bedtime. 4. Simvastatin 10 mg daily. 5. Losartan 50 mg daily. 6. Folic acid 900 mcg daily. 7. Spiriva inhaler 1 inhalation daily. 8. Multivitamin 1 tablet daily. 9. Amlodipine 10 mg daily. 10. Toprol XL 25 mg at bedtime. 11. Gabapentin 100 mg at bedtime. ALLERGIES: RAMIPRIL. FAMILY HISTORY: Reviewed and noncontributory. SOCIAL HISTORY: The patient is retired. Used to smoke 1 pack per day for about 40 years and quit smoking approximately 20 to 30 years ago. He denies any drug use, drinks alcohol on a daily basis a glass or 2 of wine that he produces himself from various berries. He stated that when he retired, he also hunts and goes fishing a lot. His surrogate is his daughter, Valorie Lutz. REVIEW OF SYSTEMS: The patient has been admitted with headache with which he presented to the emergency department a few days ago, it resolved. His shortness of breath is chronic and not in exacerbation. He denies any fevers. He complains of chest tightness whenever he exercises and walks for significant duration of time. The tightness gives better results whenever he stops the exercise. That has been ongoing for several years. Please note that the patient is a very poor historian, but all the remaining 12 systems were reviewed with the patient and were otherwise negative. PHYSICAL EXAMINATION GENERAL: The patient is a pleasant 78-year-old male who is in no acute distress , rather a poor historian. The patient is alert and oriented x3. VITAL SIGNS: Blood pressure of 160/85, heart rate is 76 and irregularly irregular, respiratory rate 18, oxygen saturation 94% on 2 L of oxygen on nasal cannula, temperature 97.1. HEENT: Head: Atraumatic, normocephalic. Eyes: Pupils equal and reactive to light and accommodation. Oropharynx is clear. Mucosa moist. NECK: Supple. No JVD. No bruits bilaterally. RESPIRATORY: Clear to auscultation bilaterally. CARDIOVASCULAR: Regular rate and rhythm, no murmur. ABDOMEN: Soft, nontender. Bowel sounds present in all 4 quadrants. EXTREMITIES: There is no edema. Pulses +2 bilaterally. No clubbing or cyanosis. NEUROLOGIC: On neuro evaluation, speech clear. Cranial nerves II through XII are grossly intact. Motor strength is 5/5 bilaterally. DIAGNOSTIC STUDIES/LAB DATA: Laboratory data showed white blood cell count of 11.3, hemoglobin of 14.9, hematocrit 44, and platelets 182. INR 1.95. Sodium 138, potassium 4.1, chloride 95, carbon dioxide 27, BUN 30, creatinine 1.37. Liver function tests are unremarkable. Troponin ranging from 0 to 0.01. Brain natriuretic peptide 83. The patient's Lyme serology also is positive for IgM, consistent with early infection. Portable chest x-ray reviewed by myself prior to the official radiologist report shows mild vascular congestion, no infiltrates noted. Once again, the official radiology report is still pending at the time of dictation. The patient also was noted to have cardiomegaly. The patient's EKG showed atrial fibrillation with heart rate of 81 beats per minute, no significant ST changes. ASSESSMENT AND PLAN: 1. For patient's exercise induced chest tightness, the patient is going to be placed on overnight observation and pharmacologic cardiac stress test is going to be obtained in the morning. Of note, the patient had an echocardiogram obtained on 09/07/18, which was noted to have an EF of 35% to 40%. The patient stated that his heavy equipment field mechanic is Dr. Victoria and we will ask Dr. Victoria's office to send patient's medical records. 2. The patient has history of chronic obstructive pulmonary disease and does not appear to be in exacerbation. Of note, the patient did receive a dose of Solu- Medrol in the emergency room as well as nebulizer treatment, which could have improved the patient's current clinical exam from initial clinical presentation. Nevertheless, the patient is going to be placed on nebulizer treatments on an as needed basis. Continued on the Spiriva and observed. 3. Lyme disease. The patient's Lyme serology is consistent with early Lyme and he is going to be placed on doxycycline. 4. For DVT prophylaxis, the patient's Coumadin is going to be continued. His INR was newly therapeutic. 5. In regards to the patient's hypertension, it is uncontrolled. The patient missed his night time medications. We will restart his home mediations including metoprolol, Norvasc, and losartan. 6. The patient has mildly elevated creatinine, which I suspect is due to chronic renal insufficiency. Nevertheless, medical records from Dr. Victoria' s office will be obtained. 7. The patient's code status is full and his surrogate is his daughter. TIME SPENT: Approximately 65 minutes was spent on the admission of this patient , more than half the time was spent [id number] with the patient during the interview and physical exam. [id number]/[facility] #: [id number] MTDRobbie
[2018-09-11 07:03] LABS: Troponin I 0.01 ng/mL (<0.04)
[2018-09-11] MEDS: Aspirin EC TAB* 81 MG TAB.EC PO SCH (08:10)
[2018-09-11] MEDS: DOXYcycline CAP(*) 100 MG PO SCH ×2 (08:10→20:56)
[2018-09-11] MEDS: CMCS:Simvastatin TAB(NF) 10 MG TAB PO SCH (08:13)
[2018-09-11] MEDS: amLODIPine TAB* 5 MG PO SCH (08:47)
[2018-09-11] MEDS: Tiotropium CAP.INH* CAP.INH/18 MCG (USE ORDER SET !) INH SCH (08:58)
[2018-09-11] MEDS ORDERED: Spiriva Inhaler DEVICE* 1 EACH DEVICE INH ONE (09:00)
[2018-09-11] MEDS ORDERED: Aminophylline IV* 25 MG/ML 10 ML VIAL ONE (13:10)
[2018-09-11] MEDS ORDERED: Regadenoson* 0.4 MG/5 ML SYRINGE ONE (13:10)
[2018-09-11 14:23] LABS: Folate > 20.00 ng/mL (>3.99)
[2018-09-11] MEDS: Nitroglycerin 0.2 MG/HR PATCH* (5 MG) TRANSDERM SCH (15:04)
--- NOTE | 2018-09-11 15:07 | CONS ---
CONSULTATION REPORT: DATE OF CONSULT: 09/11/18 CONSULTING PHYSICIAN: Vickie Aiken MD. PATIENT OF: Dena Smith, HUNTER, and Dr. Victoria. REASON FOR CONSULT: LV dysfunction. HISTORY OF PRESENT ILLNESS: This is a very pleasant 78-year-old gentleman with a history of coronary artery disease; status post bypass grafting, hypertension , atrial fibrillation, and pulmonary embolus in the past. He has had progressive dyspnea on exertion over the last year or so. He was admitted earlier this month with what was thought to be occipital neuralgia and heart failure and possible Lyme disease. He was discharged on 09/09/18 and returned reporting that he needed antibiotic for Lyme disease, which apparently the titer came back positive after he was discharged. He also had been having chest pain and shortness of breath according to the daughter, who brought him to the emergency room. When he was admitted, he complained of no shortness of breath more than usual. The patient told me today that he did have some achiness in his chest on and off, but could not quantitate the duration or timing. He stated he had some gas and diaphoresis with it. Of note, during the prior admission, he was noted to have LV dysfunction with EF of 35% to 40%, moderate diffuse hypokinesis, mildly to moderately reduced RV function, trivial TR, and trivial AI. No significant MR and reportedly, he had normal LV function in the past at [facility] approximately a year ago, although those records are not available for me at this point in time. He says that when he had his presentation for coronary artery disease, originally he had pressure and underwent stenting, but apparently required coronary artery bypass grafting in 2010 at [facility]. He denies orthopnea or peripheral edema. He says occasionally he has some chills. He thought he had some urinary incontinence, but he is not sure. He just said the bed was wet. He denies any syncope or near syncope. He denies any rashes or tick bites. No diarrhea. PAST MEDICAL HISTORY: In addition to the coronary artery disease, AFib, hypertension, COPD, and PE. He also has a history of hyperlipidemia and a PE in 2011. PAST SURGICAL HISTORY: LASIK surgery as well, CABG 2010, IVC filter MEDICATIONS: As inpatient include: 1. DuoNeb. 2. Acetaminophen. 3. Amlodipine 10 mg a day. 4. Aspirin 81 mg a day. 5. Doxycycline 100 mg b.i.d. 6. Neurontin 100 mg at bedtime. 7. Losartan 50 mg daily. 8. Metoprolol 25 mg a day. 9. Morphine 2 mg IV p.r.n. 10. Simvastatin 10 mg a day. 11. Spiriva 1 cap a day. 12. Warfarin. ALLERGIES: RAMIPRIL, which results in a cough. FAMILY HISTORY: Noncontributory. SOCIAL HISTORY: He is and has 3 children, 1 son and 2 daughters. He is a retired machinist first class. He said he used to smoke, but stopped in the past. He could not tell me exactly when, but he told another physician 20 to 30 years ago. He told me he has 1 beer a week, but told the admitting doctor that he drinks a glass or two of wine daily. He says that he can walk about 8 steps before getting shortness of breath at this point. He has 3 glasses of caffeine a day. REVIEW OF SYSTEMS: Review of systems x10 was negative, except as above. PHYSICAL EXAM: He is a well-developed, well-nourished gentleman, obese, in no apparent distress, lying supine. Blood pressure was 139/81, heart rate 76, temperature 98.2, pulse 76, O2 sat is 97% on room air. No significant JVD. Carotids 2+ without bruits. No cervical adenopathy. No thyromegaly. Extraocular muscles intact. Sclerae anicteric. Cardiac Exam: S1 and S2. Distant. No clicks, murmurs, gallops, or rubs. Chest: Decreased breath sounds with prolonged expiratory phase. No CVAT. Abdomen: Obese, bowel sounds present. No hepatosplenomegaly. Femoral pulses intact with a right femoral bruit. Distal pulses, the dorsalis pedis on the right was 2+, on the left was 1+. Posterior tibialis were not palpable. Negative Homans sign. Chronic venous stasis changes were present. Motor strength 5/5 bilaterally. Deep tendon reflexes 2/4. He is alert and oriented x3. DIAGNOSTIC STUDIES/LAB DATA: His EKG revealed AFib with minor nonspecific ST changes and some mild QT prolongation, not significantly different than the prior EKG on 09/07/18 and May 2016. Chest x-ray revealed COPD. Last admission, he had a CT of his neck which was negative. It was quoted in the discharge summary, but I am unable to find the CT of his chest/neck in the EMR. CT of his brain from 09/07/18 revealed no intracranial mass or hemorrhage noted. Lacunar infarct, right frontal lobe. IMPRESSION: My impression is that Mr. Pedro has heart failure, left ventricular dysfunction, coronary artery disease, hypertension, and chest discomfort of unclear etiology. Certainly, he is at risk for progression of his coronary artery disease. He also has a moderate amount of alcohol intake; this could be related to an alcoholic cardiomyopathy given the diffuse nature. For the time being, I have recommended the followin. Continue treatment for heart failure and coronary artery disease as you are doing. 2. Would consider adding nitrates to his regimen and see if he has improvement in his shortness of breath. 3. He is to have a pharmacologic stress test to evaluate for ischemia. 4. He understands that if he has significant ischemia, he may benefit from repeat cardiac catheterizations and is willing to consider that. 5. I would also consider the possibility of hypertensive cardiomyopathy and would try to better control blood pressure. He is already on metoprolol and an ARB. Would consider adding simvastatin or switching the losartan to Entresto and better controlling his blood pressure. [id number]/[facility] #: [id number] MARCO
[2018-09-11] MEDS: Acetaminophen TAB* 325 MG PO PRN (15:16)
--- NOTE | 2018-09-11 17:26 | PN ---
Hospitalist Progress Note Date of Service: 09/11/18 Admitted this AM. Brief update: Patient denies symptoms. Would like to eat but waiting for stress test. vss well appearing, nad no JVD irreg irreg, no mgr ctab soft nontender no LE edema no rash 77M with afib on warfarin, CAD s/p CABG, HFrEF 35-40%, HTN, COPD, h/o PE 2011, who present asking for "my Lyme antibiotics". Evasive and generally unclear about symptoms, with 3 recent ER visits and one admission for headache (thought to be occipital neuralgia) and also complaining of TORRES for years. Cardiology consulted today, since outside records reveal that patient's EF was normal last year. Pending inpatient stress test. Will continue doxycycline started overnight. Cardiology recommended starting nitrates.
[2018-09-11] MEDS: Gabapentin CAP(*) 100 MG PO SCH (20:56)
[2018-09-11] MEDS ORDERED: Warfarin TAB(*) 4 MG PO SCH (21:00)
[2018-09-11] MEDS ORDERED: Nitro Patch/OINT Remove PATCH OFF SCH (21:00)
[2018-09-11] MEDS ORDERED: Warfarin TAB(*) 5 MG PO SCH (21:00)
[2018-09-11] MEDS: Metoprolol Succinate XL TAB* 25 MG PO SCH (21:02)
[2018-09-12 06:38] LABS: ABS Lymphocytes 2.5 10^3/ul (1.0-4.8); ABS Monocytes 1.5 10^3/ul (0-0.8); ABS Neutrophils 9.7 10^3/ul (1.5-7.7); Eosinophil % 0.4 %; Hematocrit 41 % (42-52); Hemoglobin 14.4 g/dL (14.0-18.0); Lymphocyte % 18.3 %; Mean Corpuscular HGB Conc 35 g/dL (31-36); Mean Corpuscular Hemoglobin 34 pg (27-31); Mean Corpuscular Volume 96 fL (80-94); Mean Platelet Volume 7.9 fL (7.4-10.4); Platelet Count 195 10^3/uL (150-450); Red Blood Count 4.28 10^6 /uL (4.18-5.48); Red Cell Distribution Width 14 % (10-15); White Blood Count 13.7 10^3/uL (3.5-10.8)
[2018-09-12 06:40] LABS: INR 1.95 (0.82-1.09)
[2018-09-12] MEDS: DOXYcycline CAP(*) 100 MG PO SCH ×2 (10:26→21:49)
[2018-09-12] MEDS: CMCS:Simvastatin TAB(NF) 10 MG TAB PO SCH (10:26)
[2018-09-12] MEDS: amLODIPine TAB* 5 MG PO SCH (10:26)
[2018-09-12] MEDS: Nitroglycerin 0.2 MG/HR PATCH* (5 MG) TRANSDERM SCH (10:27)
[2018-09-12] MEDS: Aspirin EC TAB* 81 MG TAB.EC PO SCH (10:27)
[2018-09-12] MEDS: Losartan TAB* 25 MG PO SCH (10:27)
[2018-09-12] MEDS: Acetaminophen TAB* 325 MG PO PRN ×3 (10:35→21:49)
[2018-09-12] MEDS: Tiotropium CAP.INH* CAP.INH/18 MCG (USE ORDER SET !) INH SCH (10:37)
[2018-09-12 10:42] LABS: BUN/Creatinine Ratio 27.2 (8-20); Calcium 9.2 mg/dL (8.6-10.3); EGFR African American 54.6 (>60); EGFR Non-African American 45.2 (>60); Potassium 3.7 mmol/L (3.5-5.0)
[2018-09-12] MEDS ORDERED: Iodixanol* (CONTRAST) 320 MG/ML 100 ML SDV IV ONE (12:18)
--- NOTE | 2018-09-12 12:31 | PN ---
<Stephany Trevino - Last Filed: 09/12/18 12:25> Subjective Date of Service: 09/12/18 - c/o dizziness, sob and weakness Interval History: Patient continues to c/o dizziness worse with position change, adds that sob is reflective of baseline. He reports symptoms are similar to when he had a PE in the past. no c/o chest pain or palpitations Medications Active Medications: Acetaminophen (Tylenol Tab*) 650 mg PO Q4H PRN PRN Reason: FEVER/PAIN Last Admin: 09/12/18 10:35 Dose: 650 mg Albuterol/Ipratropium (Duoneb (Albuterol 2.5 Mg/Ipratropium 0.5 Mg)) 1 neb INH [id number] AWAKE PRN PRN Reason: sob/wheezing Amlodipine Besylate (Norvasc Tab*) 10 mg PO DAILY [facility] Last Admin: 09/12/18 10:26 Dose: 10 mg Aspirin (Aspirin Ec Tab*) 81 mg PO DAILY [facility] Last Admin: 09/12/18 10:27 Dose: 81 mg Doxycycline Hyclate (Vibramycin Cap(*)) 100 mg PO BID [facility] Last Admin: 09/12/18 10:26 Dose: 100 mg Gabapentin (Neurontin Cap(*)) 100 mg PO BEDTIME [facility] Last Admin: 09/11/18 20:56 Dose: 100 mg Metoprolol Succinate (Toprol Xl Tab*) 25 mg PO BEDTIME [facility] Last Admin: 09/11/18 21:02 Dose: Not Given Nitroglycerin (Nitroglycerin 5 Mg Patch*) 1 patch TRANSDERM DAILY@0900 [facility] Last Admin: 09/12/18 10:27 Dose: 1 patch Pharmacy Profile Note (Nitro Patch/Oint Remove*) 1 note PATCH OFF 2100 [facility] Last Admin: 09/11/18 20:59 Dose: 1 patch Simvastatin (Zocor(Nf)) 10 mg PO DAILY [facility] Last Admin: 09/12/18 10:26 Dose: 10 mg Tiotropium [place] (Spiriva Cap.Inh*) 1 cap INH DAILY [facility] Last Admin: 09/12/18 10:37 Dose: 1 cap Warfarin Sodium (Coumadin Tab(*)) 5 mg PO BEDTIME [facility]; Protocol Last Admin: 09/11/18 20:56 Dose: 5 mg Warfarin Sodium (Coumadin Tab(*)) 4 mg PO BEDTIME [facility] Last Admin: 09/11/18 20:56 Dose: 4 mg Objective Vital Signs: Temp Pulse Resp BP Pulse Ox 98.2 F 50 15 137/92 88 09/12/18 07:38 09/12/18 10:40 09/12/18 10:40 09/12/18 07:38 09/12/18 10:40 Oxygen Devices in Use Now: None Appearance: lying in bed states he is weak and needs a charity to sit up. A+O x3 Eyes: No Scleral Icterus Ears/Nose/Mouth/Throat: NL Teeth, Lips, Gums Neck: NL Appearance and Movements; NL JVP, Trachea Midline Respiratory: - - diminished throughout. no crackles Cardiovascular: NL Sounds; No Murmurs; No JVD, No Edema Extremities: No Edema Neurological: Alert and Oriented x 3 Lines/Tubes/Other Access: Clean, Dry and Intact Peripheral IV Laboratory Results: 09/12/18 06:27 09/12/18 10:11 INR (Anticoag Therapy) 1.95 (0.82-1.09) H 09/12/18 06:27 Total Bilirubin 0.60 mg/dL (0.2-1.0) 09/10/18 21:12 AST 24 U/L (13-39) 09/10/18 21:12 ALT 18 U/L (7-52) 09/10/18 21:12 Alkaline Phosphatase 62 U/L (34-104) 09/10/18 21:12 B-Natriuretic Peptide 83 pg/mL (<=100) 09/10/18 21:12 Total Protein 7.3 g/dL (6.4-8.9) 09/10/18 21:12 Albumin 3.9 g/dL (3.2-5.2) 09/10/18 21:12 Globulin 3.4 g/dL (2-4) 09/10/18 21:12 Albumin/Globulin Ratio 1.1 (1-3) 09/10/18 21:12 09/10/18 09/11/18 09/11/18 21:12 00:40 06:28 Troponin I 0.01 0.00 0.01 Laboratory Results - last 24 hr 09/11/18 09/12/18 09/12/18 06:28 06:27 06:27 WBC 13.7 H RBC 4.28 Hgb 14.4 Hct 41 L MCV 96 H MCH 34 H MCHC 35 RDW 14 Plt Count 195 MPV 7.9 Neut % (Auto) 70.4 Lymph % (Auto) 18.3 [place] % (Auto) 10.7 Eos % (Auto) 0.4 Baso % (Auto) 0.2 Absolute Neuts (auto) 9.7 H Absolute Lymphs (auto) 2.5 Absolute Monos (auto) 1.5 H Absolute Eos (auto) 0.0 Absolute Basos (auto) 0.0 Absolute Nucleated RBC 0.0 Nucleated RBC % 0.0 INR (Anticoag Therapy) 1.95 H Sodium Potassium Chloride Carbon Dioxide Anion Gap BUN Creatinine Est GFR ( Amer) Est GFR (Non-Af Amer) BUN/Creatinine Ratio Glucose Calcium Magnesium Troponin I 0.01 Vitamin B12 629 Folate > 20.00 09/12/18 10:11 WBC RBC Hgb Hct MCV MCH MCHC RDW Plt Count MPV Neut % (Auto) Lymph % (Auto) [place] % (Auto) Eos % (Auto) Baso % (Auto) Absolute Neuts (auto) Absolute Lymphs (auto) Absolute Monos (auto) Absolute Eos (auto) Absolute Basos (auto) Absolute Nucleated RBC Nucleated RBC % INR (Anticoag Therapy) Sodium 129 L Potassium 3.7 Chloride 95 L Carbon Dioxide 24 Anion Gap 10 BUN 41 H Creatinine 1.51 H Est GFR ( Amer) 54.6 Est GFR (Non-Af Amer) 45.2 BUN/Creatinine Ratio 27.2 H Glucose 124 H Calcium 9.2 Magnesium 2.0 Troponin I Vitamin B12 Folate Diagnostic Imaging: *[facility]* [place] [address] Fax #: [phone] Transthoracic Echocardiogram Patient: Wyatt Pedro : 1940 Study Date: 09/08/2018 Age: 77 Gender: M HR: 70 bpm Height: 73 in /185.4 cm BSA: 2.37 m^2 Weight: 249.5 lb /113.4 kg BMI: 33 kg/m^2 *Nuclear Equipment Sales Engineer: * Cecilia Perea [facility] *Referring Physician: * Tu CowartReading Physician: * Hasmukh Chávez MD Indications: Congestive Heart Failure. History: Atrial fibrillation. Coronary artery disease. Chronic obstructive pulmonary disease. Risk factors: Hypertension. Dyslipidemia. Labs, prior tests, procedures, and surgery: Coronary artery bypass grafting. Conclusions Summary: 1. Left ventricle: Systolic function is mildly to moderately reduced. The estimated ejection fraction is 35-40%. Moderate diffuse hypokinesis. 2. Right ventricle: Systolic function is mildly to moderately reduced. 3. Mitral valve: There is no evidence of stenosis. There is no significant regurgitation. 4. Aortic valve: There is no evidence of stenosis. There is trivial regurgitation. 5. Tricuspid valve: There is trivial regurgitation. This report is only to be considered final once signed by the Provider(s) as displayed in the "<Electronically Signed by >" field (s). Absence of a signature indicates the report is in a draft status and still needs to be finalized. In the event this document was created by someone other than the signing Provider, the individual initiating the document will be listed in the "Entered by:" or "Dictated by:" rabago. Patient Name: WYATT PEDRO Medical Record#: [id number] Ordering Physician: Betty Calabrese MD Acct.#: [id number] : 1940 Age: 78 Sex: M Location: [address] [place] [address] MEDICAL/TELEMETRY Exam Date: 09/11/18 0700 ADM Status: ADM Vero Order Information: NM MYOCARDIAL MULTI RESTING; NUCLEAR CARDIAC STRESS TEST Accession Number: [id number]; [id number] CPT: 70478 Edited for charges. Indication: Chest pain. Myocardial perfusion scan was performed utilizing 1 day protocol. Rest myocardial perfusion was performed after intravenous injection of 10.76 seconds of technetium 99 and tetrofosmin. Pharmacological stress was applied and 25.2 mCi of technetium 99 and tetrofosmin was injected. There is homogeneous distribution of the radiotracer throughout the left ventricle with mild ventriculomegaly. There is thinning of the left apex. There may be some reversible change is noted. Ejection fraction is 41%. IMPRESSION: There appears to be some reversible change in the apex. Global hypokinesis is noted. ASSESSMENT: Intermediate risk Based on imaging criteria from ACC/AHA 2002 Guideline Update for the Management of Patients With Chronic Stable Angina Table 23. Noninvasive Risk Stratification. Reference. Dictated By: Tena Garcia MD Dictated Date/Time: 09/11/18 1523 Transcribed Date/Time: 09/11/18 1517 Copy to: CC: Imaging - [facility] [address] This report is only to be considered final once signed by the Provider(s) as displayed in the "<Electronically Signed by >" field (s). Absence of a signature indicates the report is in a draft status and still needs to be finalized. In the event this document was created by someone other than the signing Provider, the individual initiating the document will be listed in the "Entered by:" or "Dictated by:" rabago. 1 of 2 EKG Data: ECG from 09/12/2018 AF rate 82. no interval changes Telemetry: Afib rate 50-60's Assessment/Plan #1 Ongoing c/o sob and dizziness. h/o PE with sub therapeutic INR. BNP was elevated at admit. On echo there is new reduction in LVEF with new RV strain. Will order CTA. Not clear that level of ischemia on MPI report explains new reduction LVEF. If CTA is negative will speak with Dr. Rollins about possible cath if CTA is negative. #2 h/o CAD with prior bypass; Troponin negative. MPI report revealed new area of ischemia in anterior apex. Not clear that this would explain newly reduced LVEF to now 35-40%. He is on ASA and statin therapy. Tolerating Bblocker but not able to increase due to HR 50-60's. On NTG. To be ruled out for submassive PE. Will speak with Ria about ? LHC #3 Newly diagnosed SHF; LVEF 35-40%. On Toprol therapy unable to titrate due to HR. Will hold ARB to optimize renal function for CTA +/- LHC. Appears compensated on exam. Will re eval ARB after testing. #4 disposition pending course. Attending: Cyrus Rollins <Cyrus Rollins - Last Filed: 09/12/18 16:15> Medications Active Medications: Acetaminophen (Tylenol Tab*) 650 mg PO Q4H PRN PRN Reason: FEVER/PAIN Last Admin: 09/12/18 15:52 Dose: 650 mg Albuterol/Ipratropium (Duoneb (Albuterol 2.5 Mg/Ipratropium 0.5 Mg)) 1 neb INH [id number] AWAKE PRN PRN Reason: sob/wheezing Amlodipine Besylate (Norvasc Tab*) 10 mg PO DAILY [facility] Last Admin: 09/12/18 10:26 Dose: 10 mg Aspirin (Aspirin Ec Tab*) 81 mg PO DAILY [facility] Last Admin: 09/12/18 10:27 Dose: 81 mg Doxycycline Hyclate (Vibramycin Cap(*)) 100 mg PO BID [facility] Last Admin: 09/12/18 10:26 Dose: 100 mg Gabapentin (Neurontin Cap(*)) 100 mg PO BEDTIME [facility] Last Admin: 09/11/18 20:56 Dose: 100 mg Metoprolol Succinate (Toprol Xl Tab*) 25 mg PO BEDTIME [facility] Last Admin: 09/11/18 21:02 Dose: Not Given Nitroglycerin (Nitroglycerin 5 Mg Patch*) 1 patch TRANSDERM DAILY@0900 [facility] Last Admin: 09/12/18 10:27 Dose: 1 patch Pharmacy Profile Note (Nitro Patch/Oint Remove*) 1 note PATCH OFF 2100 [facility] Last Admin: 09/11/18 20:59 Dose: 1 patch Simvastatin (Zocor(Nf)) 10 mg PO DAILY [facility] Last Admin: 09/12/18 10:26 Dose: 10 mg Tiotropium [place] (Spiriva Cap.Inh*) 1 cap INH DAILY [facility] Last Admin: 09/12/18 10:37 Dose: 1 cap Warfarin Sodium (Coumadin Tab(*)) 5 mg PO BEDTIME [facility]; Protocol Last Admin: 09/11/18 20:56 Dose: 5 mg Warfarin Sodium (Coumadin Tab(*)) 4 mg PO BEDTIME [facility] Last Admin: 09/11/18 20:56 Dose: 4 mg Objective Vital Signs: Temp Pulse Resp BP Pulse Ox 97.7 F 76 18 128/72 95 09/12/18 12:14 09/12/18 12:14 09/12/18 12:14 09/12/18 12:14 09/12/18 12:14 Laboratory Results: 09/12/18 06:27 09/12/18 10:11 INR (Anticoag Therapy) 1.95 (0.82-1.09) H 09/12/18 06:27 Total Bilirubin 0.60 mg/dL (0.2-1.0) 09/10/18 21:12 AST 24 U/L (13-39) 09/10/18 21:12 ALT 18 U/L (7-52) 09/10/18 21:12 Alkaline Phosphatase 62 U/L (34-104) 09/10/18 21:12 B-Natriuretic Peptide 83 pg/mL (<=100) 09/10/18 21:12 Total Protein 7.3 g/dL (6.4-8.9) 09/10/18 21:12 Albumin 3.9 g/dL (3.2-5.2) 09/10/18 21:12 Globulin 3.4 g/dL (2-4) 09/10/18 21:12 Albumin/Globulin Ratio 1.1 (1-3) 09/10/18 21:12 09/10/18 09/11/18 09/11/18 21:12 00:40 06:28 Troponin I 0.01 0.00 0.01 Assessment/Plan Reviewed with patient, daughter Valorie and Ms. Trevino. CTa negative for PE. Seems to have developed a nitrate headache. No change in dyspnea. No orthopnea. TORRES may be due to COPD, CHF, LV dysfunction. Nuclear did not suggest sig ischemia but this can be underestimated as discussed. Plan: dc nitrates. trial of entresto. continue CHF meds and optimize. consider cath if sx' persist. obtain cath /cabg reports. Counseling and/or Coordination of Care Minutes: 40+ minutes
--- NOTE | 2018-09-12 13:56 | PN ---
Subjective Date of Service: 09/12/18 Interval History: Patient complained of rib pain overnight, "like his PE pain". Noted to have subtherapeutic INR. Given right heart strain on recent TTE, CT-PE ordered by cardiology team, which was negative for PE. Losartan held given contrast load and possibility of cardiac cath. Objective Active Medications: Acetaminophen (Tylenol Tab*) 650 mg PO Q4H PRN PRN Reason: FEVER/PAIN Last Admin: 09/12/18 10:35 Dose: 650 mg Albuterol/Ipratropium (Duoneb (Albuterol 2.5 Mg/Ipratropium 0.5 Mg)) 1 neb INH [id number] AWAKE PRN PRN Reason: sob/wheezing Amlodipine Besylate (Norvasc Tab*) 10 mg PO DAILY [facility] Last Admin: 09/12/18 10:26 Dose: 10 mg Aspirin (Aspirin Ec Tab*) 81 mg PO DAILY [facility] Last Admin: 09/12/18 10:27 Dose: 81 mg Doxycycline Hyclate (Vibramycin Cap(*)) 100 mg PO BID [facility] Last Admin: 09/12/18 10:26 Dose: 100 mg Gabapentin (Neurontin Cap(*)) 100 mg PO BEDTIME [facility] Last Admin: 09/11/18 20:56 Dose: 100 mg Metoprolol Succinate (Toprol Xl Tab*) 25 mg PO BEDTIME [facility] Last Admin: 09/11/18 21:02 Dose: Not Given Nitroglycerin (Nitroglycerin 5 Mg Patch*) 1 patch TRANSDERM DAILY@0900 [facility] Last Admin: 09/12/18 10:27 Dose: 1 patch Pharmacy Profile Note (Nitro Patch/Oint Remove*) 1 note PATCH OFF 2100 [facility] Last Admin: 09/11/18 20:59 Dose: 1 patch Simvastatin (Zocor(Nf)) 10 mg PO DAILY [facility] Last Admin: 09/12/18 10:26 Dose: 10 mg Tiotropium [place] (Spiriva Cap.Inh*) 1 cap INH DAILY [facility] Last Admin: 09/12/18 10:37 Dose: 1 cap Warfarin Sodium (Coumadin Tab(*)) 5 mg PO BEDTIME [facility]; Protocol Last Admin: 09/11/18 20:56 Dose: 5 mg Warfarin Sodium (Coumadin Tab(*)) 4 mg PO BEDTIME [facility] Last Admin: 09/11/18 20:56 Dose: 4 mg Vital Signs - 8 hr 09/12/18 09/12/18 09/12/18 06:00 07:00 07:38 Temperature 98.2 F Pulse Rate 65 Respiratory 16 16 18 Rate Blood Pressure 137/92 (mmHg) O2 Sat by Pulse 98 Oximetry 09/12/18 09/12/18 10:40 12:14 Temperature 97.7 F Pulse Rate 50 76 Respiratory 15 18 Rate Blood Pressure 128/72 (mmHg) O2 Sat by Pulse 88 95 Oximetry Oxygen Devices in Use Now: None Appearance: well apearing, NAD, alert and interactive Eyes: No Scleral Icterus Ears/Nose/Mouth/Throat: NL Teeth, Lips, Gums, Clear Oropharnyx Neck: Trachea Midline Respiratory: Clear to Auscultation, - Cardiovascular: NL Sounds; No Murmurs; No JVD - irreg irreg Extremities: No Edema Skin: No Rash or Ulcers Neurological: Alert and Oriented x 3, NL Gait Result Diagrams: 09/12/18 06:27 09/12/18 10:11 Additional Lab and Data: Lab Results 09/10/18 09/10/18 09/10/18 Range/Units 21:12 21:12 21:12 WBC 11.3 H (3.5-10.8) 10^3/uL RBC 4.58 (4.18-5.48) 10^6 /uL Hgb 14.9 (14.0-18.0) g/dL Hct 44 (42-52) % MCV 96 H (80-94) fL MCH 33 H (27-31) pg MCHC 34 (31-36) g/dL RDW 14 (10-15) % Plt Count 182 (150-450) 10^3/uL MPV 7.5 (7.4-10.4) fL Neut % (Auto) 64.7 % Lymph % (Auto) 23.4 % [place] % (Auto) 10.3 % Eos % (Auto) 1.1 % Baso % (Auto) 0.5 % Absolute Neuts (auto) 7.3 (1.5-7.7) 10^3/ul Absolute Lymphs (auto) 2.6 (1.0-4.8) 10^3/ul Absolute Monos (auto) 1.2 H (0-0.8) 10^3/ul Absolute Eos (auto) 0.1 (0-0.6) 10^3/ul Absolute Basos (auto) 0.1 (0-0.2) 10^3/ul Absolute Nucleated RBC 0.0 10^3/ul Nucleated RBC % 0.1 INR (Anticoag Therapy) 1.95 H (0.82-1.09) Sodium 130 L (135-145) mmol/L Potassium 4.1 (3.5-5.0) mmol/L Chloride 95 L (101-111) mmol/L Carbon Dioxide 27 (22-32) mmol/L Anion Gap 8 (2-11) mmol/L BUN 30 H (6-24) mg/dL Creatinine 1.37 H (0.67-1.17) mg/dL Est GFR ( Amer) 61.1 (>60) Est GFR (Non-Af Amer) 50.5 (>60) BUN/Creatinine Ratio 21.9 H (8-20) Glucose 111 H (70-100) mg/dL Calcium 9.4 (8.6-10.3) mg/dL Total Bilirubin 0.60 (0.2-1.0) mg/dL AST 24 (13-39) U/L ALT 18 (7-52) U/L Alkaline Phosphatase 62 (34-104) U/L Troponin I 0.01 (<0.04) ng/mL Total Protein 7.3 (6.4-8.9) g/dL Albumin 3.9 (3.2-5.2) g/dL Globulin 3.4 (2-4) g/dL Albumin/Globulin Ratio 1.1 (1-3) Assess/Plan/Problems-Billing 77M with afib on warfarin, CAD s/p CABG, new HFrEF 35-40%, HTN, COPD, h/o PE 2011, who presents with multiple complaints, now admitted for new HF work up. - Patient Problems (1) Heart failure with reduced ejection fraction Current Visit: Yes Comment: Echo here with EF 35-40% with diffuse moderate hypokinesis, last year with EF normal. Now with pharmacologic stress indeterminant risk. - appreciate cardiology team; started on nitrates - cont metoprolol - holding ARB in setting of contrast (2) Borderline results on serologic testing for Lyme disease Comment: Discussed with ID. Unlikely to be true infection with Lyme. Discussion with patient - insistent on continuing antibiotics. Extensively discussed risk of antibiotic use, and pt prefers to continue treatment with doxycycline at this time. Amenable to continue given no adverse effects. (3) Atrial fibrillation Comment: Continues to have subtherapeutic INR. CHADSVSC 6. - may switch to heparin gtt if requires cath - cont metoprolol - cont home warfarin by INR (4) CAD (coronary artery disease) Comment: s/p CABG - cont home aspirin and statin (5) COPD (chronic obstructive pulmonary disease) Comment: - cont Spiriva daily - cont nebs prn (6) Headache Comment: MRI without etiology. Thought to be occipital neuralgia. Improving. - seen and evaluated by Neuro, who recommends gabapentin (7) DVT prophylaxis Comment: on warfarin
[2018-09-12] MEDS ORDERED: Heparin VIAL(*) 5000 UNITS/ML VIAL (FIVE THOUSAND) IV SCH (17:00)
[2018-09-12] MEDS: Gabapentin CAP(*) 100 MG PO SCH (21:49)
[2018-09-12] MEDS: Metoprolol Succinate XL TAB* 25 MG PO SCH (21:53)
[2018-09-12] MEDS: LORazepam TAB(*) 1 MG PO PRN (23:53)
[2018-09-13 00:30] LABS: Urine Appearance Clear; Urine Bacteria Absent (Absent); Urine Bilirubin Negative (Negative); Urine Blood 1+ (Negative); Urine Color Yellow; Urine Glucose Negative (Negative); Urine Ketones Negative (Negative); Urine Nitrite Negative (Negative); Urine Protein 1+(30 mg/dL) (Negative); Urine Red Blood Cell Trace(0-2/hpf) (Absent); Urine Specific Gravity 1.021 (1.010-1.030); Urine Urobilinogen Negative (Negative); Urine White Blood Cell Trace(0-5/hpf) (Absent)
[2018-09-13] MEDS: Acetaminophen TAB* 325 MG PO PRN ×3 (03:59→20:11)
[2018-09-13] MEDS ORDERED: Morphine INJ* 2 MG/ML 1 ML SYRINGE (TWO MG - NEW SYRINGE VERSION) IV ONE ×2 (05:06→22:47)
[2018-09-13 06:58] LABS: ABS Eosinophils 0.1 10^3/ul (0-0.6); ABS Lymphocytes 2.7 10^3/ul (1.0-4.8); ABS Neutrophils 5.9 10^3/ul (1.5-7.7); Eosinophil % 1.3 %; Hematocrit 41 % (42-52); Hemoglobin 14.1 g/dL (14.0-18.0); Lymphocyte % 27.5 %; Mean Corpuscular HGB Conc 34 g/dL (31-36); Mean Corpuscular Hemoglobin 33 pg (27-31); Mean Corpuscular Volume 96 fL (80-94); Mean Platelet Volume 7.7 fL (7.4-10.4); Nucleated Red Blood Cells % 0.1; Platelet Count 193 10^3/uL (150-450); Red Blood Count 4.26 10^6 /uL (4.18-5.48); Red Cell Distribution Width 14 % (10-15); White Blood Count 9.7 10^3/uL (3.5-10.8)
[2018-09-13 07:13] LABS: Calcium 8.8 mg/dL (8.6-10.3); EGFR African American 67.3 (>60); EGFR Non-African American 55.6 (>60); Magnesium 1.8 mg/dL (1.9-2.7); Potassium 4.2 mmol/L (3.5-5.0)
[2018-09-13] MEDS: Tiotropium CAP.INH* CAP.INH/18 MCG (USE ORDER SET !) INH SCH (08:16)
[2018-09-13] MEDS ORDERED: Magnesium Sulfate 1 GM IV* 1 GM/100 ML BAG IV ONE (08:41)
[2018-09-13] MEDS ORDERED: Sacubitril/Valsartan 24/26(NF) 1 TAB PO SCH (09:00)
[2018-09-13] MEDS: Heparin DRIP 25,000 UNITS(*) 25,000 UNITS/500 ML BAG IV SCH (09:31)
[2018-09-13 09:40] LABS: INR 2.3 (0.82-1.09)
[2018-09-13] MEDS: CMCS:Simvastatin TAB(NF) 10 MG TAB PO SCH (10:48)
[2018-09-13] MEDS: DOXYcycline CAP(*) 100 MG PO SCH ×2 (10:48→20:09)
[2018-09-13] MEDS: Losartan TAB* 25 MG PO SCH ×2 (10:48→20:09)
[2018-09-13] MEDS: Aspirin EC TAB* 81 MG TAB.EC PO SCH (10:48)
[2018-09-13] MEDS ORDERED: Losartan TAB* 25 MG PO ONE (12:44)
[2018-09-13] MEDS ORDERED: amLODIPine TAB* 5 MG PO SCH (13:00)
[2018-09-13] MEDS ORDERED: traMADol TAB* 50 MG PO ONE (15:57)
--- NOTE | 2018-09-13 18:13 | PN ---
Subjective Date of Service: 09/13/18 Interval History: No SOB. [place] restless last night so slept in chair. Objective Active Medications: Acetaminophen (Tylenol Tab*) 650 mg PO Q4H PRN PRN Reason: FEVER/PAIN Last Admin: 09/13/18 13:14 Dose: 650 mg Albuterol/Ipratropium (Duoneb (Albuterol 2.5 Mg/Ipratropium 0.5 Mg)) 1 neb INH [id number] AWAKE PRN PRN Reason: sob/wheezing Amlodipine Besylate (Norvasc Tab*) 2.5 mg PO DAILY [facility] Last Admin: 09/13/18 13:14 Dose: 2.5 mg Aspirin (Aspirin Ec Tab*) 81 mg PO DAILY [facility] Last Admin: 09/13/18 10:48 Dose: 81 mg Doxycycline Hyclate (Vibramycin Cap(*)) 100 mg PO BID [facility] Last Admin: 09/13/18 10:48 Dose: 100 mg Gabapentin (Neurontin Cap(*)) 100 mg PO BEDTIME [facility] Last Admin: 09/12/18 21:49 Dose: 100 mg Heparin Sodium (Porcine) (Heparin Vial(*)) 0 units IV .PER PROTOCOL [facility] Heparin Sodium/Dextrose (Heparin Drip 25,000 Units(*)) 25,000 units in 500 mls @ 0 mls/hr IV PER RATE [facility]; Protocol Last Admin: 09/13/18 09:31 Dose: 31 mls/hr Lorazepam (Ativan Tab(*)) 1 mg PO Q12H PRN PRN Reason: Anxiety/Agitation Last Admin: 09/12/18 23:53 Dose: 1 mg Losartan Potassium (Cozaar Tab*) 25 mg PO BID [facility] Last Admin: 09/13/18 10:48 Dose: 25 mg Metoprolol Succinate (Toprol Xl Tab*) 25 mg PO BEDTIME [facility] Last Admin: 09/12/18 21:53 Dose: Not Given Simvastatin (Zocor(Nf)) 10 mg PO DAILY [facility] Last Admin: 09/13/18 10:48 Dose: 10 mg Tiotropium [place] (Spiriva Cap.Inh*) 1 cap INH DAILY [facility] Last Admin: 09/13/18 08:16 Dose: 1 cap Vital Signs - 8 hr 09/13/18 09/13/18 09/13/18 11:23 15:34 16:29 Temperature 98.0 F 98.6 F Pulse Rate 87 76 Respiratory 18 16 16 Rate Blood Pressure 153/76 155/90 (mmHg) O2 Sat by Pulse 94 97 Oximetry Oxygen Devices in Use Now: None Appearance: well appearing, NAD Eyes: No Scleral Icterus Ears/Nose/Mouth/Throat: Clear Oropharnyx, Mucous Membranes Moist Neck: NL Appearance and Movements; NL JVP, Trachea Midline Respiratory: Symmetrical Chest Expansion and Respiratory Effort, Clear to Auscultation Cardiovascular: RRR Abdominal: NL Sounds; No Tenderness; No Distention, No Hepatosplenomegaly Extremities: No Edema Skin: No Rash or Ulcers Neurological: Alert and Oriented x 3 Result Diagrams: 09/13/18 06:35 09/13/18 06:35 Additional Lab and Data: Lab Results 09/10/18 09/10/18 09/10/18 Range/Units 21:12 21:12 21:12 WBC 11.3 H (3.5-10.8) 10^3/uL RBC 4.58 (4.18-5.48) 10^6 /uL Hgb 14.9 (14.0-18.0) g/dL Hct 44 (42-52) % MCV 96 H (80-94) fL MCH 33 H (27-31) pg MCHC 34 (31-36) g/dL RDW 14 (10-15) % Plt Count 182 (150-450) 10^3/uL MPV 7.5 (7.4-10.4) fL Neut % (Auto) 64.7 % Lymph % (Auto) 23.4 % [place] % (Auto) 10.3 % Eos % (Auto) 1.1 % Baso % (Auto) 0.5 % Absolute Neuts (auto) 7.3 (1.5-7.7) 10^3/ul Absolute Lymphs (auto) 2.6 (1.0-4.8) 10^3/ul Absolute Monos (auto) 1.2 H (0-0.8) 10^3/ul Absolute Eos (auto) 0.1 (0-0.6) 10^3/ul Absolute Basos (auto) 0.1 (0-0.2) 10^3/ul Absolute Nucleated RBC 0.0 10^3/ul Nucleated RBC % 0.1 INR (Anticoag Therapy) 1.95 H (0.82-1.09) Sodium 130 L (135-145) mmol/L Potassium 4.1 (3.5-5.0) mmol/L Chloride 95 L (101-111) mmol/L Carbon Dioxide 27 (22-32) mmol/L Anion Gap 8 (2-11) mmol/L BUN 30 H (6-24) mg/dL Creatinine 1.37 H (0.67-1.17) mg/dL Est GFR ( Amer) 61.1 (>60) Est GFR (Non-Af Amer) 50.5 (>60) BUN/Creatinine Ratio 21.9 H (8-20) Glucose 111 H (70-100) mg/dL Calcium 9.4 (8.6-10.3) mg/dL Total Bilirubin 0.60 (0.2-1.0) mg/dL AST 24 (13-39) U/L ALT 18 (7-52) U/L Alkaline Phosphatase 62 (34-104) U/L Troponin I 0.01 (<0.04) ng/mL Total Protein 7.3 (6.4-8.9) g/dL Albumin 3.9 (3.2-5.2) g/dL Globulin 3.4 (2-4) g/dL Albumin/Globulin Ratio 1.1 (1-3) Microbiology and Other Data: Microbiology 09/12/18 10:11 Aerobic Blood Culture - Preliminary Blood Venous No Growth Day 1 Anaerobic Blood Culture - Preliminary No Growth Day 1 09/12/18 10:11 Aerobic Blood Culture - Preliminary Blood Venous No Growth Day 1 Anaerobic Blood Culture - Preliminary No Growth Day 1 Assess/Plan/Problems-Billing 77M with afib on warfarin, CAD s/p CABG, new HFrEF 35-40%, HTN, COPD, h/o PE 2011, who presents with multiple complaints, now admitted for new HF work up. - Patient Problems (1) Heart failure with reduced ejection fraction Current Visit: Yes Comment: Echo here with EF 35-40% with diffuse moderate hypokinesis, last year with EF normal. Now with pharmacologic stress indeterminant risk. - appreciate cardiology team input, now likely cath on Saturday - cont metoprolol, losartan (2) Borderline results on serologic testing for Lyme disease Comment: Discussed with ID. Unlikely to be true infection with Lyme. Discussion with patient - insistent on continuing antibiotics. Extensively discussed risk of antibiotic use, and pt prefers to continue treatment with doxycycline at this time. Amenable to continue given no adverse effects, currently, but will continue to monitor. (3) Atrial fibrillation Comment: Continues to have subtherapeutic INR. CHADSVSC 6. - now on heparin gtt pending cath - cont metoprolol (4) CAD (coronary artery disease) Comment: s/p CABG - cont home aspirin and statin (5) COPD (chronic obstructive pulmonary disease) Comment: - cont Spiriva daily - cont nebs prn (6) Headache Comment: MRI without etiology. Thought to be occipital neuralgia. Improving. - seen and evaluated by Neuro, who recommends gabapentin (7) DVT prophylaxis Comment: on therapeutic AC
[2018-09-13] MEDS: LORazepam TAB(*) 1 MG PO PRN (20:08)
[2018-09-13] MEDS: Metoprolol Succinate XL TAB* 25 MG PO SCH (20:09)
[2018-09-13] MEDS: Gabapentin CAP(*) 100 MG PO SCH (20:10)
[2018-09-14 05:01] LABS: BUN/Creatinine Ratio 23.9 (8-20); Calcium 8.7 mg/dL (8.6-10.3); EGFR African American 79.6 (>60); EGFR Non-African American 65.8 (>60); Magnesium 1.8 mg/dL (1.9-2.7); Potassium 4.1 mmol/L (3.5-5.0)
[2018-09-14] MEDS ORDERED: Magnesium Sulfate 1 GM IV* 1 GM/100 ML BAG IV ONE ×2 (07:47→13:40)
[2018-09-14] MEDS: Tiotropium CAP.INH* CAP.INH/18 MCG (USE ORDER SET !) INH SCH (07:51)
[2018-09-14] MEDS: Acetaminophen TAB* 325 MG PO PRN ×2 (10:05→20:43)
[2018-09-14] MEDS: CMCS:Simvastatin TAB(NF) 10 MG TAB PO SCH (10:05)
[2018-09-14] MEDS: DOXYcycline CAP(*) 100 MG PO SCH (10:05)
[2018-09-14] MEDS: Losartan TAB* 25 MG PO SCH ×2 (10:05→20:43)
[2018-09-14] MEDS: Aspirin EC TAB* 81 MG TAB.EC PO SCH (10:05)
[2018-09-14] MEDS: Heparin DRIP 25,000 UNITS(*) 25,000 UNITS/500 ML BAG IV SCH (10:19)
[2018-09-14 10:45] LABS: Activated Partial Thrombo Time 60.9 seconds (26.0-38.0)
[2018-09-14] MEDS ORDERED: Calcium Carbonate CHEW TAB* 500 MG (TUMS) PO PRN (11:58)
--- NOTE | 2018-09-14 12:58 | PN ---
Subjective Date of Service: 09/14/18 Interval History: Pt again with drug-seeking behavior overnight. Told member of care team yesterday that he will "say anything to get the good stuff". Again asked for morphine overnight but noted to fall asleep after request. No pain on exam when distracted. Pt states he is bored in the hospital. Still with SOB on exertion. Denies light headedness, chest pain, LE edema, cough. No fever, chills, abd pain, dysuria. Objective Active Medications: Acetaminophen (Tylenol Tab*) 650 mg PO Q4H PRN PRN Reason: FEVER/PAIN Last Admin: 09/14/18 10:05 Dose: 650 mg Albuterol/Ipratropium (Duoneb (Albuterol 2.5 Mg/Ipratropium 0.5 Mg)) 1 neb INH [id number] AWAKE PRN PRN Reason: sob/wheezing Aspirin (Aspirin Ec Tab*) 81 mg PO DAILY [facility] Last Admin: 09/14/18 10:05 Dose: 81 mg Calcium Carbonate (Tums*) 500 mg PO TID PRN PRN Reason: INDIGESTION Gabapentin (Neurontin Cap(*)) 200 mg PO BEDTIME [facility] Heparin Sodium (Porcine) (Heparin Vial(*)) 0 units IV .PER PROTOCOL [facility] Heparin Sodium/Dextrose (Heparin Drip 25,000 Units(*)) 25,000 units in 500 mls @ 0 mls/hr IV PER RATE [facility]; Protocol Last Admin: 09/14/18 10:19 Dose: 19 mls/hr Lorazepam (Ativan Tab(*)) 1 mg PO Q12H PRN PRN Reason: Anxiety/Agitation Last Admin: 09/13/18 20:08 Dose: 1 mg Losartan Potassium (Cozaar Tab*) 25 mg PO BID [facility] Last Admin: 09/14/18 10:05 Dose: 25 mg Metoprolol Succinate (Toprol Xl Tab*) 50 mg PO BEDTIME [facility] Simvastatin (Zocor(Nf)) 10 mg PO DAILY [facility] Last Admin: 09/14/18 10:05 Dose: 10 mg Tiotropium [place] (Spiriva Cap.Inh*) 1 cap INH DAILY [facility] Last Admin: 09/14/18 07:51 Dose: 1 cap Vital Signs - 8 hr 07/28/19 07/28/19 07:15 07:54 Temperature 98.1 F Pulse Rate 57 68 Respiratory 20 18 Rate O2 Sat by Pulse 98 95 Oximetry Oxygen Devices in Use Now: None Appearance: elderly man in NAD, lying flat in bed, no increased WOB; interactive Ears/Nose/Mouth/Throat: Clear Oropharnyx, Mucous Membranes Moist Neck: NL Appearance and Movements; NL JVP, Trachea Midline Respiratory: Symmetrical Chest Expansion and Respiratory Effort, Clear to Percussion Cardiovascular: NL Sounds; No Murmurs; No JVD, RRR Abdominal: NL Sounds; No Tenderness; No Distention, No Hepatosplenomegaly Extremities: No Edema Skin: No Rash or Ulcers Neurological: Alert and Oriented x 3 Result Diagrams: 09/13/18 06:35 09/14/18 04:30 Additional Lab and Data: Lab Results 09/10/18 09/10/18 09/10/18 Range/Units 21:12 21:12 21:12 WBC 11.3 H (3.5-10.8) 10^3/uL RBC 4.58 (4.18-5.48) 10^6 /uL Hgb 14.9 (14.0-18.0) g/dL Hct 44 (42-52) % MCV 96 H (80-94) fL MCH 33 H (27-31) pg MCHC 34 (31-36) g/dL RDW 14 (10-15) % Plt Count 182 (150-450) 10^3/uL MPV 7.5 (7.4-10.4) fL Neut % (Auto) 64.7 % Lymph % (Auto) 23.4 % Pepin % (Auto) 10.3 % Eos % (Auto) 1.1 % Baso % (Auto) 0.5 % Absolute Neuts (auto) 7.3 (1.5-7.7) 10^3/ul Absolute Lymphs (auto) 2.6 (1.0-4.8) 10^3/ul Absolute Monos (auto) 1.2 H (0-0.8) 10^3/ul Absolute Eos (auto) 0.1 (0-0.6) 10^3/ul Absolute Basos (auto) 0.1 (0-0.2) 10^3/ul Absolute Nucleated RBC 0.0 10^3/ul Nucleated RBC % 0.1 INR (Anticoag Therapy) 1.95 H (0.82-1.09) Sodium 130 L (135-145) mmol/L Potassium 4.1 (3.5-5.0) mmol/L Chloride 95 L (101-111) mmol/L Carbon Dioxide 27 (22-32) mmol/L Anion Gap 8 (2-11) mmol/L BUN 30 H (6-24) mg/dL Creatinine 1.37 H (0.67-1.17) mg/dL Est GFR ( Amer) 61.1 (>60) Est GFR (Non-Af Amer) 50.5 (>60) BUN/Creatinine Ratio 21.9 H (8-20) Glucose 111 H (70-100) mg/dL Calcium 9.4 (8.6-10.3) mg/dL Total Bilirubin 0.60 (0.2-1.0) mg/dL AST 24 (13-39) U/L ALT 18 (7-52) U/L Alkaline Phosphatase 62 (34-104) U/L Troponin I 0.01 (<0.04) ng/mL Total Protein 7.3 (6.4-8.9) g/dL Albumin 3.9 (3.2-5.2) g/dL Globulin 3.4 (2-4) g/dL Albumin/Globulin Ratio 1.1 (1-3) Microbiology and Other Data: Microbiology 09/12/18 10:11 Aerobic Blood Culture - Preliminary Blood Venous No Growth Day 1 Anaerobic Blood Culture - Preliminary No Growth Day 1 09/12/18 10:11 Aerobic Blood Culture - Preliminary Blood Venous No Growth Day 1 Anaerobic Blood Culture - Preliminary No Growth Day 1 Assess/Plan/Problems-Billing 78M with afib on warfarin, CAD s/p CABG, new HFrEF 35-40%, HTN, COPD, h/o PE 2011, who presents with multiple complaints, now admitted for new HF work up in context of TORRES. - Patient Problems (1) Heart failure with reduced ejection fraction Comment: Echo here with EF 35-40% with diffuse moderate hypokinesis, last year with EF normal. Now with pharmacologic stress indeterminant risk. Presenting with TORRES, without evidence of volume overload. - appreciate cardiology team input, cath on Saturday - cont metoprolol, losartan (2) Atrial fibrillation Comment: CHADSVSC 6. Was on warfarin prior to presentation. - now on heparin gtt pending cath - cont metoprolol (3) CAD (coronary artery disease) Comment: s/p CABG - cont home aspirin and statin - nuclear stress on Friday 09/15 (4) COPD (chronic obstructive pulmonary disease) Comment: Not with active exacerbation. Wasn't on inhalers at home. No O2 requirement. - cont Spiriva daily - cont nebs prn (5) Borderline results on serologic testing for Lyme disease Comment: Discussed with ID. Unlikely to be true infection with Lyme without history of symptoms. Will stop antibiotics. (6) Headache Comment: MRI without etiology. Thought to be occipital neuralgia. Improving. - seen and evaluated by Neuro, who recommends gabapentin (7) DVT prophylaxis Comment: on therapeutic AC
[2018-09-14 14:05] LABS: INR 1.68 (0.82-1.09)
[2018-09-14] MEDS: Gabapentin CAP(*) 100 MG PO SCH (20:43)
[2018-09-14] MEDS: Metoprolol Succinate XL TAB* 25 MG PO SCH (20:43)
[2018-09-14] MEDS ORDERED: Gabapentin CAP(*) 100 MG PO SCH (21:00)
[2018-09-14] MEDS ORDERED: Metoprolol Succinate XL TAB* 50 MG PO SCH (21:00)
--- NOTE | 2018-09-14 21:03 | PN ---
Hospitalist Progress Note Date of Service: 09/14/18 Paged for Patient complaining of "Severe Chest Pain." When I went to see the patient within several minutes he was already sleeping. Patient is quoted in the medical record as saying he will say he is having any type of pain to get opiates. EKG ordered an unchanged from previously. Nitrates offered to the patient and he declined, stating he will only take Morphine. Morphine not indicated nor prescribed at this time. Patient medicated with tylenol. Cardiac Cath Scheduled for AM. No further workup indicated.
[2018-09-15 06:31] LABS: ABS Eosinophils 0.2 10^3/ul (0-0.6); ABS Lymphocytes 2.4 10^3/ul (1.0-4.8); ABS Monocytes 0.9 10^3/ul (0-0.8); ABS Neutrophils 6.9 10^3/ul (1.5-7.7); Eosinophil % 1.5 %; Hematocrit 42 % (42-52); Hemoglobin 14.7 g/dL (14.0-18.0); Lymphocyte % 22.6 %; Mean Corpuscular HGB Conc 35 g/dL (31-36); Mean Corpuscular Hemoglobin 33 pg (27-31); Mean Corpuscular Volume 96 fL (80-94); Mean Platelet Volume 7.5 fL (7.4-10.4); Nucleated Red Blood Cells % 0.1; Platelet Count 205 10^3/uL (150-450); Red Blood Count 4.43 10^6 /uL (4.18-5.48); Red Cell Distribution Width 14 % (10-15); White Blood Count 10.4 10^3/uL (3.5-10.8)
[2018-09-15 06:39] LABS: Activated Partial Thrombo Time 24.7 seconds (26.0-38.0); INR 1.28 (0.82-1.09)
[2018-09-15 06:51] LABS: BUN/Creatinine Ratio 20.9 (8-20); Calcium 8.9 mg/dL (8.6-10.3); EGFR African American 78.7 (>60); EGFR Non-African American 65.1 (>60); Magnesium 2.1 mg/dL (1.9-2.7); Potassium 4.4 mmol/L (3.5-5.0)
--- NOTE | 2018-09-15 06:59 | PN ---
Subjective Date of Service: 09/15/18 Interval History: HD # 6 09/15 78M PMH with afib on AC, CAD s/p CABG, new HFrEF 35-40%, HTN, COPD, h/o PE 2011 , who presents with multiple complaints, now admitted for new HF work up in context of TORRES. Overnight no acute events, complained of chest pain, no EKG changes and largely sleeping thru event, VSS Labs: HypoNA, chronic, unchanged to 130. This morning, seen with daughters at bedside, he has vauge complaints of shoulder arm and head pain, his daughters feel he is anxious and "fidgety" on further discussion he is nervous about his heart and generally doesn't like being in the hospital. We discuss dx of new HFrEF, and abnormal stress, we will await cath, we discuss minimizing narcotic pain medication. Objective Active Medications: Acetaminophen (Tylenol Tab*) 650 mg PO Q4H PRN PRN Reason: FEVER/PAIN Last Admin: 09/14/18 20:43 Dose: 650 mg Albuterol/Ipratropium (Duoneb (Albuterol 2.5 Mg/Ipratropium 0.5 Mg)) 1 neb INH [id number] AWAKE PRN PRN Reason: sob/wheezing Last Admin: 09/14/18 18:26 Dose: 1 neb Aspirin (Aspirin Ec Tab*) 81 mg PO DAILY [facility] Last Admin: 09/14/18 10:05 Dose: 81 mg Calcium Carbonate (Tums*) 500 mg PO TID PRN PRN Reason: INDIGESTION Gabapentin (Neurontin Cap(*)) 100 mg PO BEDTIME [facility] Last Admin: 09/14/18 20:43 Dose: 100 mg Lorazepam (Ativan Tab(*)) 1 mg PO Q12H PRN PRN Reason: Anxiety/Agitation Last Admin: 09/13/18 20:08 Dose: 1 mg Losartan Potassium (Cozaar Tab*) 25 mg PO BID [facility] Last Admin: 09/14/18 20:43 Dose: 25 mg Metoprolol Succinate (Toprol Xl Tab*) 25 mg PO BEDTIME [facility] Last Admin: 09/14/18 20:43 Dose: 25 mg Simvastatin (Zocor(Nf)) 10 mg PO DAILY [facility] Last Admin: 09/14/18 10:05 Dose: 10 mg Tiotropium [place] (Spiriva Cap.Inh*) 1 cap INH DAILY [facility] Last Admin: 09/14/18 07:51 Dose: 1 cap Vital Signs - 8 hr 09/14/18 09/14/18 09/15/18 23:02 23:35 03:25 Temperature 98.1 F 97.8 F Pulse Rate 66 57 Respiratory 15 17 17 Rate Blood Pressure 136/82 155/85 (mmHg) O2 Sat by Pulse 94 97 Oximetry Oxygen Devices in Use Now: None Appearance: Man laying in bed in NAD, blanket over face Eyes: No Scleral Icterus, PERRLA Ears/Nose/Mouth/Throat: NL Teeth, Lips, Gums, Clear Oropharnyx Neck: NL Appearance and Movements; NL JVP Respiratory: Symmetrical Chest Expansion and Respiratory Effort, Clear to Auscultation Cardiovascular: NL Sounds; No Murmurs; No JVD, - - Irreg irreg Abdominal: NL Sounds; No Tenderness; No Distention, No Hepatosplenomegaly Extremities: No Edema Skin: No Rash or Ulcers Neurological: Alert and Oriented x 3 Result Diagrams: 09/15/18 05:58 09/15/18 05:58 Microbiology and Other Data: Microbiology 09/12/18 10:11 Aerobic Blood Culture - Preliminary Blood Venous No Growth Day 1 Anaerobic Blood Culture - Preliminary No Growth Day 1 09/12/18 10:11 Aerobic Blood Culture - Preliminary Blood Venous No Growth Day 1 Anaerobic Blood Culture - Preliminary No Growth Day 1 EKG Data: Overnight 09/15: EKG with a fib no e/o acute ischemia Assess/Plan/Problems-Billing 78M with afib on AC, CAD s/p CABG, new HFrEF 35-40%, HTN, COPD, h/o PE 2011, who presents with multiple complaints, now admitted for new HF work up in context of TORRES. - Patient Problems (1) Heart failure with reduced ejection fraction Current Visit: Yes Status: Acute Code(s): I50.20 - UNSPECIFIED SYSTOLIC ( CONGESTIVE) HEART FAILURE SNOMED Code(s): 741422580 Comment: Echo here with EF 35-40% with diffuse moderate hypokinesis, last year with EF normal. Now with pharmacologic stress indeterminant risk. Presenting with TORRES, without evidence of volume overload. - appreciate cardiology team input, cath today - cont metoprolol, losartan (2) Atrial fibrillation Current Visit: Yes Status: Acute Code(s): I48.91 - UNSPECIFIED ATRIAL FIBRILLATION SNOMED Code(s): 22180442 Comment: CHADSVSC 6. Was on warfarin prior to presentation. - resume AC post cath - cont metoprolol (3) Borderline results on serologic testing for Lyme disease Current Visit: Yes Status: Acute Code(s): R76.8 - OTHER SPECIFIED ABNORMAL IMMUNOLOGICAL FINDINGS IN SERUM SNOMED Code(s): 323708935 Comment: Discussed with ID. Unlikely to be true infection with Lyme without history of symptoms. Will stop antibiotics. (4) CAD (coronary artery disease) Current Visit: Yes Status: Acute Code(s): I25.10 - ATHSCL HEART DISEASE OF [place] CORONARY ARTERY W/O ANG PCTRS SNOMED Code(s): 43952514 Comment: s/p CABG - cont home aspirin and statin (5) COPD (chronic obstructive pulmonary disease) Current Visit: Yes Status: Acute Code(s): J44.9 - CHRONIC OBSTRUCTIVE PULMONARY DISEASE, UNSPECIFIED SNOMED Code(s): 49426023 Comment: Not with active exacerbation. Wasn't on inhalers at home. No O2 requirement. - cont Spiriva daily - cont nebs prn (6) DVT prophylaxis Current Visit: Yes Status: Acute Code(s): Z29.9 - ENCOUNTER FOR PROPHYLACTIC MEASURES, UNSPECIFIED SNOMED Code(s): 951496129 Comment: on therapeutic AC (7) DNR (do not resuscitate) Current Visit: Yes Status: Acute Status and Disposition: Pending cath
[2018-09-15] MEDS ORDERED: diPHENhydraMINE PO* 25 MG PO PRN (07:51)
[2018-09-15] MEDS ORDERED: Diazepam TAB(*) 5 MG PO PRN (07:51)
[2018-09-15] MEDS ORDERED: NS 0.9% 1000 ML** 1,000 ML IV SCH (08:00)
[2018-09-15] MEDS: Tiotropium CAP.INH* CAP.INH/18 MCG (USE ORDER SET !) INH SCH (08:25)
[2018-09-15] MEDS: Aspirin EC TAB* 81 MG TAB.EC PO SCH (09:11)
[2018-09-15] MEDS: Losartan TAB* 25 MG PO SCH ×2 (09:12→20:04)
[2018-09-15] MEDS: CMCS:Simvastatin TAB(NF) 10 MG TAB PO SCH (09:12)
[2018-09-15] MEDS ORDERED: Lidocaine 1% INJ* 10 MG/ML 30 ML SDV ONE (11:44)
[2018-09-15] MEDS ORDERED: Iodixanol 320 (CONTRAST) 100 ML SDV ONE (11:44)
[2018-09-15] MEDS ORDERED: Heparin 2 UNITS/ML IVPREMIX* 2,000 UNIT/1,000 ML BAG IV ONE (11:44)
[2018-09-15] MEDS ORDERED: Midazolam* 1 MG/ML 5 ML VIAL (5 MG) ONE (11:57)
[2018-09-15] MEDS ORDERED: fentaNYL* 50 MCG/ML 2 ML VIAL (100 MCG VIAL) ONE (11:57)
[2018-09-15] MEDS ORDERED: Nitro 2% OINT* (Nitroglycerin) 1 INCH/PAK PAK ONE (14:03)
[2018-09-15] MEDS ORDERED: Haloperidol TAB* 2 MG PO PRN (15:04)
--- NOTE | 2018-09-15 15:08 | PN ---
Hospitalist Progress Note Date of Service: 09/15/18 Clinical Update 77M with afib, CAD s/p CABG, HFrEF 35-40%, HTN, COPD, h/o PE 2011, who presented initially for "my Lyme antibiotics". Kept in house for workup of new HFrEF Cath today with chronic non intervenable dz -Hospital course notable for mild delirium, exacerbated post cath today, anxious and confused -On discussion with daughters has had subacute decline at baseline is active and functional, suspect underlying MCI -Post cath today pt is delirious intermittently following commands with waxing and waining sensorium, he has no focal neurologic deficits, his repeat EKG is negative, nitrate is given with some improvement of chest pain -On extensive chart review he has presented subacutely for headaches, MRI/MRA showing no acute process, known old lacunar stroke seen on prior imaging -Otherwork up included unremarkable CTA and CXR -He was tested for Lyme during initial presentation of [facility], IgM was positive, IGG negative, which could be c/w early lyme or false positive, Doxy was continued until yesterday For now his active problems remain #Delirium: seems c/w hospital aquired vs possible w/drawal vs underlying MCI/ dementia -On discussion with family, has had sub acute cog decline for several months -PRN Haldol, unless WAM > 6 -B12, TSH, Folate, ammonia to be sent -CXR to r/o PNA (neg) -Unlikely chance of neuro lyme (he has no facial palsy), though will continue Doxy for total of 14 days given he is unable to give a good history -Consider EtOH w/drawal, start WAM -Urine unremarkable for infection, can resend UA -No e/o new stroke -Possibly HypONA contributing, seems SIADH related, with osms high though consider low effective circulating dz #Diffuse pain: Again unclear and seems migratory, continue doxy for now, CRP/ ESR low in August 2018, toradol PRN, AVOID OPIATES EXACERBATING HIS DELERIUM #HFrEF: 2/2 to ICM, med mgmt per cardiology, appreciate recs -Would consider imdur and ranexa if cards feels appropriate #Hx of PE and PAF: Restart AC with warfarin, unclear why not on DOAC #HTN: Fair control, see WAM above. 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
[2018-09-15] MEDS ORDERED: Enoxaparin(*) 80 MG/0.8 ML SYR SUBCUT SCH (16:00)
[2018-09-15] MEDS ORDERED: Warfarin TAB(*) 4 MG PO SCH (17:00)
[2018-09-15] MEDS: Acetaminophen TAB* 325 MG PO PRN (17:58)
[2018-09-15] MEDS: Metoprolol Succinate XL TAB* 25 MG PO SCH (20:03)
[2018-09-15] MEDS: DOXYcycline CAP(*) 100 MG PO SCH (20:03)
[2018-09-15] MEDS: Gabapentin CAP(*) 100 MG PO SCH (20:04)
[2018-09-15] MEDS: Ketorolac INJ* 30 MG/ML 1 ML VIAL IV PUSH PRN (21:40)
--- NOTE | 2018-09-15 22:36 | CATH ---
CC: Dr. Rollins; Dr. Luís Victoria, smash hand, [facility], [place], [place] * CARDIAC CATHETERIZATION: DATE OF PROCEDURE: 09/15/18 - ROOM #[id number] PROCEDURE: Cardiac catheterization including coronary angiography, saphenous vein graft angiography, internal mammary artery catheterization and injection. INDICATION: Cardiomyopathy, coronary artery disease, coronary bypass surgery. The patient is a 78-year-old gentleman with history of coronary artery disease, history of coronary artery bypass surgery in the past. At that time, he had a PATRICIO to the right coronary artery, HOLCOMB to the LAD, saphenous vein graft to OM1 and OM2. He has also had multiple stenting procedures. The patient had an echocardiogram a year ago, which was normal. The patient was admitted to the hospital here at [facility] with congestive heart failure and pneumonia. His ejection fraction was noted to be 30%. The patient was also noted to have significant increase in shortness of breath recently. Cardiac catheterization was recommended. PROCEDURE IN DETAIL: The patient was brought to the procedure room in a fasting state. Informed consent had been obtained prior to the procedure. All labs were reviewed. The patient was placed supine on the procedure table. His femoral areas were cleaned and draped in the usual fashion. 1% lidocaine was used for local anesthesia. The right femoral artery was entered by a Seldinger technique and a guidewire was placed. Over the guidewire, a 6-Algerian sheath introducer was placed. The patient underwent coronary angiography and vein graft angiography using a 6- [place] JL4 catheter, a 6-Algerian AR1 catheter and a 6-Algerian SANJEEV catheter. At the end of the procedure, all sheaths and catheters were removed. An angiogram of the femoral artery was noted to be normal and a Mynx closure device was deployed. The patient tolerated the procedure well with no complications. A total of 125 cc of Omnipaque dye was used. A total of 15 minutes of fluoro time was used. FINDINGS: 1. Left main artery: Left main was normal in size. It bifurcated into the LAD and circumflex. There was no evidence of stenosis. 2. Left anterior descending artery: The LAD was normal in size. It gave off 2 diagonal vessels. It was occluded in its mid vessel. The stent to the proximal portion of the LAD was open and patent. The first diagonal vessel was without disease. The second diagonal vessel had a proximal of 80% stenosis. Overall, it was a relatively small vessel, measuring 2 mm in size. The septal perforators of the LAD did give off collaterals to the distal PDA. 3. Left circumflex artery: Circumflex artery was occluded. 4. Saphenous vein graft to OM1 and OM2 was open and patent. The segment from the aorta to OM1 was normal. There was no evidence of stenosis. There was good flow. The segment between the OM1 and OM2 had a hazy 50% narrowing that could represent a clot versus valve. It was unclear as to whether there was normal anastomosis to OM2 with good filling of OM2. There was RANJEET 3 flow throughout. 5. Right coronary artery: The RCA is a dominant vessel. It gave off the PDA. 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 Just distal to the aneurysm, there was an eccentric 75% stenosis. The right coronary artery itself was a small atretic vessel that was occluded at the distal right coronary artery. The distal PDA was occluded. There is no evidence of right to right collaterals. 6. Right internal mammary artery to the right coronary artery was occluded. 7. Left internal mammary artery to the LAD is open and patent. The anastomosis to the LAD is normal. The LAD itself was a small atretic vessel. IMPRESSION: 1. Severe 3-vessel coronary artery disease with an occluded left anterior descending, left circumflex artery, and occluded distal right coronary artery. 2. Saphenous vein graft to OM1 and OM2 is patent. 3. Left internal mammary artery to the left anterior descending is patent. 4. Right internal mammary artery to the posterior descending artery is occluded. RECOMMENDATIONS: The patient will continue on maximum medical therapy. There is no obvious areas of intervention. [id number]/[facility] #: [id number] [facility]
[2018-09-15] MEDS: Nitroglycerin TAB 0.4 MG* 0.4 MG TAB SL PRN (23:53)
[2018-09-16] MEDS: Acetaminophen TAB* 325 MG PO PRN ×4 (00:40→21:26)
[2018-09-16 05:45] LABS: ABS Basophils 0.1 10^3/ul (0-0.2); ABS Eosinophils 0.2 10^3/ul (0-0.6); ABS Lymphocytes 2.8 10^3/ul (1.0-4.8); ABS Monocytes 0.9 10^3/ul (0-0.8); ABS Neutrophils 7.9 10^3/ul (1.5-7.7); Hematocrit 40 % (42-52); Hemoglobin 13.7 g/dL (14.0-18.0); Lymphocyte % 23.3 %; Mean Corpuscular HGB Conc 35 g/dL (31-36); Mean Corpuscular Hemoglobin 33 pg (27-31); Mean Corpuscular Volume 95 fL (80-94); Mean Platelet Volume 7.3 fL (7.4-10.4); Nucleated Red Blood Cells % 0.1; Platelet Count 204 10^3/uL (150-450); Red Blood Count 4.17 10^6 /uL (4.18-5.48); Red Cell Distribution Width 14 % (10-15); White Blood Count 11.8 10^3/uL (3.5-10.8)
[2018-09-16 05:49] LABS: INR 1.21 (0.82-1.09)
[2018-09-16 06:02] LABS: Albumin 3.5 g/dL (3.2-5.2); Albumin/Globulin Ratio 1.2 (1-3); BUN/Creatinine Ratio 20.3 (8-20); EGFR African American 69.2 (>60); EGFR Non-African American 57.2 (>60); Globulin 2.9 g/dL (2-4); Indirect Bilirubin 0.8 mg/dL (0.3-1.0); Potassium 4.4 mmol/L (3.5-5.0); Total Protein 6.4 g/dL (6.4-8.9)
[2018-09-16 06:32] LABS: TSH (Thyroid Stimulating Horm) 1.15 mcIU/mL (0.34-5.60)
--- NOTE | 2018-09-16 06:57 | PN ---
Subjective Date of Service: 09/16/18 Interval History: HD # 7 on 09/16 78M with afib, CAD s/p CABG, HFrEF 35-40%, HTN, COPD, h/o PE 2011, who presented initially for "my Lyme antibiotics". Kept in house for workup of new HFrEF, complicated by delirium, and ongoing headaches Overnight, complains of chest pain and increasingly agitated, got nitro, toradol , haldol seemed to resolve more with Toradol and Haldol than nitro, though nursing reports minimally. VSS: mildly HTN Labs: Mild Leukocytosis this AM, persistent mild hypoNA This morning, still confused but follows commands, seen eating breakfast. Patient says "wow wow wow what is going on," complaints of vauge all over pain and anxiety, oriented to self. Otherwise no other complaints though poor mentation and waxes and wanes. Objective Active Medications: Acetaminophen (Tylenol Tab*) 650 mg PO Q4H PRN PRN Reason: FEVER/PAIN Last Admin: 09/16/18 06:07 Dose: 650 mg Albuterol/Ipratropium (Duoneb (Albuterol 2.5 Mg/Ipratropium 0.5 Mg)) 1 neb INH [id number] AWAKE PRN PRN Reason: sob/wheezing Last Admin: 09/14/18 18:26 Dose: 1 neb Aspirin (Aspirin Ec Tab*) 81 mg PO DAILY [facility] Last Admin: 09/15/18 09:11 Dose: 81 mg Calcium Carbonate (Tums*) 500 mg PO TID PRN PRN Reason: INDIGESTION Doxycycline Hyclate (Vibramycin Cap(*)) 100 mg PO BID [facility] Last Admin: 09/15/18 20:03 Dose: 100 mg Enoxaparin Sodium (Lovenox(*)) 80 mg SUBCUT Q24H [facility] Last Admin: 09/15/18 17:56 Dose: 80 mg Gabapentin (Neurontin Cap(*)) 100 mg PO BEDTIME [facility] Last Admin: 09/15/18 20:04 Dose: 100 mg Haloperidol (Haldol Tab*) 2 mg PO Q6H PRN PRN Reason: AGITATION Last Admin: 09/15/18 21:40 Dose: 2 mg Ketorolac Tromethamine (Toradol Inj*) 30 mg IV PUSH Q6H PRN PRN Reason: PAIN Last Admin: 09/15/18 21:40 Dose: 30 mg Losartan Potassium (Cozaar Tab*) 25 mg PO BID [facility] Last Admin: 09/15/18 20:04 Dose: 25 mg Metoprolol Succinate (Toprol Xl Tab*) 25 mg PO BEDTIME [facility] Last Admin: 09/15/18 20:03 Dose: 25 mg Nitroglycerin (Nitroglycerin Tab 0.4 Mg*) 0.4 mg SL Q5M PRN PRN Reason: ANGINA Last Admin: 09/16/18 00:00 Dose: 0.4 mg Simvastatin (Zocor(Nf)) 10 mg PO DAILY [facility] Last Admin: 09/15/18 09:12 Dose: Not Given Tiotropium [place] (Spiriva Cap.Inh*) 1 cap INH DAILY [facility] Last Admin: 09/15/18 08:25 Dose: Not Given Warfarin Sodium (Coumadin Tab(*)) 8 mg PO DAILY@1700 [facility]; Protocol Last Admin: 09/15/18 17:57 Dose: 8 mg Vital Signs - 8 hr 09/15/18 09/16/18 09/16/18 23:29 00:05 00:12 Temperature 98.4 F Pulse Rate 74 94 Respiratory 18 Rate Blood Pressure 150/71 123/81 90/60 (mmHg) O2 Sat by Pulse 97 94 93 Oximetry 09/16/18 09/16/18 09/16/18 00:34 02:06 03:52 Temperature 98.6 F 98.6 F Pulse Rate 59 61 74 Respiratory 18 18 Rate Blood Pressure 148/93 144/84 150/90 (mmHg) O2 Sat by Pulse 96 98 95 Oximetry 09/16/18 05:36 Temperature 98.1 F Pulse Rate 65 Respiratory 18 Rate Blood Pressure 157/81 (mmHg) O2 Sat by Pulse 95 Oximetry Oxygen Devices in Use Now: None Appearance: Sitting up in chair, elderly man eating breakfast Eyes: No Scleral Icterus, PERRLA Ears/Nose/Mouth/Throat: NL Teeth, Lips, Gums, Clear Oropharnyx Neck: NL Appearance and Movements; NL JVP, Trachea Midline Respiratory: Symmetrical Chest Expansion and Respiratory Effort, Clear to Auscultation Cardiovascular: NL Sounds; No Murmurs; No JVD, RRR Abdominal: NL Sounds; No Tenderness; No Distention, No Hepatosplenomegaly Lymphatic: No Cervical Adenopathy Skin: No Rash or Ulcers Neurological: - - No nuchal ridgitidy, no TTP to spine Result Diagrams: 09/16/18 05:32 09/16/18 05:32 Additional Lab and Data: Microbiology and Other Data: Microbiology 09/12/18 10:11 Aerobic Blood Culture - Preliminary Blood Venous No Growth Day 1 Anaerobic Blood Culture - Preliminary No Growth Day 1 09/12/18 10:11 Aerobic Blood Culture - Preliminary Blood Venous No Growth Day 1 Anaerobic Blood Culture - Preliminary No Growth Day 1 EKG Data: Overnight 09/15: EKG with a fib no e/o acute ischemia Assess/Plan/Problems-Billing 78M with afib on AC, mild cognitive impairment at baseline, CAD s/p CABG, HFrEF 35-40%, HTN, COPD, h/o PE 2011, who presented initially for "my Lyme antibiotics and headache" in setting of recent ED workup for [facility]. Kept in house for workup of new HFrEF, now attributed to ischemic cardiomyopathy, course complicated by persistent delirium, and ongoing headaches - Patient Problems (1) Delirium Current Visit: Yes Status: Acute Code(s): R41.0 - DISORIENTATION, UNSPECIFIED SNOMED Code(s): 6458428 Comment: Hospital course complicated by ongoing delerium. Chart review shows coupled with headaches, MRI/MRA unremarkable 09/08/18 in ER visit, has not done LP. Discussion with family reveals daily drinking, also has cognitive impairment at baseline as evidenced by history and supported by imaging. - Delirium w/u with MRI/MRA, TSH, B12, Ammonia, CXR unremarkable, UA to be collected all negative - Possibly mutltifactorial from ? withdrawal, delirum of dementia, mild hypONA - Consider LP given coupled with headaches and body aches, will reconsult to neuro today to further discuss utility. (2) Headache Current Visit: Yes Status: Acute Code(s): R51 - HEADACHE SNOMED Code(s): 58637413 Comment: MRI without etiology. Thought to be occipital neuralgia, see above for further discussion in [facility] coupled with delerium - On david QHS, Toradol, avoid narcotics (3) Heart failure with reduced ejection fraction Current Visit: Yes Status: Acute Code(s): I50.20 - UNSPECIFIED SYSTOLIC ( CONGESTIVE) HEART FAILURE SNOMED Code(s): 799458365 Comment: Echo with EF 35-40% with diffuse moderate hypokenisis, last echo 2018 normal -Likely 2/2 to progressed ICM -Cath 09/15 showing diffuse 3V dz -Optimized on Metoprolol, Losartan, Simvastatin (4) CAD (coronary artery disease) Current Visit: Yes Status: Acute Code(s): I25.10 - ATHSCL HEART DISEASE OF [place] CORONARY ARTERY W/O ANG PCTRS SNOMED Code(s): 94804649 Comment: s/p CABG - cont home aspirin and statin (5) Atrial fibrillation Current Visit: Yes Status: Acute Code(s): I48.91 - UNSPECIFIED ATRIAL FIBRILLATION SNOMED Code(s): 12672395 Comment: CHADSVSC 6. Was on warfarin prior to presentation. -Resume AC post cath, holding in event of possible LP -Con rate control (6) Borderline results on serologic testing for Lyme disease Current Visit: Yes Status: Acute Code(s): R76.8 - OTHER SPECIFIED ABNORMAL IMMUNOLOGICAL FINDINGS IN SERUM SNOMED Code(s): 183540727 Comment: IgM can be c/w early lyme though false positive is quite common, given ongoing symptoms reasonable to continue at this time - He has rec'd Doxy 09/11-09/14AM, restarted 09/15 mid day (7) COPD (chronic obstructive pulmonary disease) Current Visit: Yes Status: Acute Code(s): J44.9 - CHRONIC OBSTRUCTIVE PULMONARY DISEASE, UNSPECIFIED SNOMED Code(s): 57238388 Comment: Not with active exacerbation. Wasn't on inhalers at home. No O2 requirement. - cont Spiriva daily - cont nebs prn (8) Hyponatremia Current Visit: Yes Status: Acute Code(s): E87.1 - HYPO-OSMOLALITY AND HYPONATREMIA SNOMED Code(s): 59489304 Comment: Present on admission -Mild -Urine [place] high concerning for SIADH (9) DVT prophylaxis Current Visit: Yes Status: Acute Code(s): Z29.9 - ENCOUNTER FOR PROPHYLACTIC MEASURES, UNSPECIFIED SNOMED Code(s): 827464234 Comment: on therapeutic AC (10) DNR (do not resuscitate) Current Visit: Yes Status: Acute Status and Disposition: Remains inpatient -PT ordered
[2018-09-16] MEDS: Tiotropium CAP.INH* CAP.INH/18 MCG (USE ORDER SET !) INH SCH (07:48)
[2018-09-16] MEDS: Aspirin EC TAB* 81 MG TAB.EC PO SCH (09:40)
[2018-09-16] MEDS: DOXYcycline CAP(*) 100 MG PO SCH ×2 (09:41→21:27)
[2018-09-16] MEDS: Losartan TAB* 25 MG PO SCH ×2 (09:41→21:27)
[2018-09-16] MEDS: CMCS:Simvastatin TAB(NF) 10 MG TAB PO SCH (09:41)
[2018-09-16] MEDS: Ketorolac INJ* 30 MG/ML 1 ML VIAL IV PUSH PRN ×2 (09:44→19:53)
--- NOTE | 2018-09-16 10:51 | PN ---
Subjective Date of Service: 09/16/18 - s/p C due to newly found LV dysfunction Interval History: Patient complains neck pain radiating into back of head. no c/o changes in vision. denies chest pain, groin pain, sob or dizziness. His friend is sitting at his bedside. Medications Active Medications: Acetaminophen (Tylenol Tab*) 650 mg PO Q4H PRN PRN Reason: FEVER/PAIN Last Admin: 09/16/18 06:07 Dose: 650 mg Albuterol/Ipratropium (Duoneb (Albuterol 2.5 Mg/Ipratropium 0.5 Mg)) 1 neb INH [id number] AWAKE PRN PRN Reason: sob/wheezing Last Admin: 09/14/18 18:26 Dose: 1 neb Aspirin (Aspirin Ec Tab*) 81 mg PO DAILY [facility] Last Admin: 09/16/18 09:40 Dose: 81 mg Calcium Carbonate (Tums*) 500 mg PO TID PRN PRN Reason: INDIGESTION Doxycycline Hyclate (Vibramycin Cap(*)) 100 mg PO BID [facility] Last Admin: 09/16/18 09:41 Dose: 100 mg Gabapentin (Neurontin Cap(*)) 100 mg PO BEDTIME [facility] Last Admin: 09/15/18 20:04 Dose: 100 mg Haloperidol (Haldol Tab*) 4 mg PO Q6H PRN PRN Reason: AGITATION Ketorolac Tromethamine (Toradol Inj*) 30 mg IV PUSH Q6H PRN PRN Reason: PAIN Last Admin: 09/16/18 09:44 Dose: 30 mg Losartan Potassium (Cozaar Tab*) 25 mg PO BID [facility] Last Admin: 09/16/18 09:41 Dose: 25 mg Metoprolol Succinate (Toprol Xl Tab*) 12.5 mg PO BEDTIME [facility] Nitroglycerin (Nitroglycerin Tab 0.4 Mg*) 0.4 mg SL Q5M PRN PRN Reason: ANGINA Last Admin: 09/16/18 00:00 Dose: 0.4 mg Simvastatin (Zocor(Nf)) 10 mg PO DAILY [facility] Last Admin: 09/16/18 09:41 Dose: 10 mg Tiotropium [place] (Spiriva Cap.Inh*) 1 cap INH DAILY [facility] Last Admin: 09/16/18 07:48 Dose: 1 cap Objective Vital Signs: Temp Pulse Resp BP Pulse Ox 97.5 F 72 20 138/74 96 09/16/18 07:55 09/16/18 07:55 09/16/18 07:55 09/16/18 07:55 09/16/18 07:55 Oxygen Devices in Use Now: None Appearance: lying in bed A+O x3, moaning from neck pain Eyes: No Scleral Icterus Ears/Nose/Mouth/Throat: NL Teeth, Lips, Gums Neck: NL Appearance and Movements; NL JVP, Trachea Midline Respiratory: Symmetrical Chest Expansion and Respiratory Effort, Clear to Auscultation, - - diminished throughout. no crackles Cardiovascular: NL Sounds; No Murmurs; No JVD, No Edema Extremities: No Edema, - - right femoral access site is intact, no oozing, no hematoma. strong femoral pulse palpation, no thrill, non tender to palpation Neurological: Alert and Oriented x 3 Lines/Tubes/Other Access: Clean, Dry and Intact Peripheral IV Laboratory Results: 09/16/18 05:32 09/16/18 05:32 INR (Anticoag Therapy) 1.21 (0.82-1.09) H 09/16/18 05:32 APTT 24.7 seconds (26.0-38.0) L 09/15/18 05:58 Total Bilirubin 1.00 mg/dL (0.2-1.0) 09/16/18 05:32 Direct Bilirubin 0.20 mg/dL (0.03-0.18) H 09/16/18 05:32 Indirect Bilirubin 0.8 mg/dL (0.3-1.0) 09/16/18 05:32 AST 17 U/L (13-39) 09/16/18 05:32 ALT 16 U/L (7-52) 09/16/18 05:32 Alkaline Phosphatase 60 U/L (34-104) 09/16/18 05:32 B-Natriuretic Peptide 83 pg/mL (<=100) 09/10/18 21:12 Total Protein 6.4 g/dL (6.4-8.9) 09/16/18 05:32 Albumin 3.5 g/dL (3.2-5.2) 09/16/18 05:32 Globulin 2.9 g/dL (2-4) 09/16/18 05:32 Albumin/Globulin Ratio 1.2 (1-3) 09/16/18 05:32 TSH 1.15 mcIU/mL (0.34-5.60) 09/16/18 05:32 09/10/18 09/11/18 09/11/18 21:12 00:40 06:28 Troponin I 0.01 0.00 0.01 09/15/18 23:57 Troponin I 0.01 Laboratory Results - last 24 hr 09/15/18 09/16/18 09/16/18 23:57 05:32 05:32 WBC RBC Hgb Hct MCV MCH MCHC RDW Plt Count MPV Neut % (Auto) Lymph % (Auto) [place] % (Auto) Eos % (Auto) Baso % (Auto) Absolute Neuts (auto) Absolute Lymphs (auto) Absolute Monos (auto) Absolute Eos (auto) Absolute Basos (auto) Absolute Nucleated RBC Nucleated RBC % INR (Anticoag Therapy) Sodium 131 L Potassium 4.4 Chloride 98 L Carbon Dioxide 28 Anion Gap 5 BUN 25 H Creatinine 1.23 H Est GFR ( Amer) 69.2 Est GFR (Non-Af Amer) 57.2 BUN/Creatinine Ratio 20.3 H Glucose 107 H Calcium 9.0 Total Bilirubin 1.00 Direct Bilirubin 0.20 H Indirect Bilirubin 0.8 AST 17 ALT 16 Alkaline Phosphatase 60 Ammonia 36 Troponin I 0.01 Total Protein 6.4 Albumin 3.5 Globulin 2.9 Albumin/Globulin Ratio 1.2 Vitamin B12 972 H TSH 1.15 09/16/18 09/16/18 05:32 05:32 WBC 11.8 H RBC 4.17 L Hgb 13.7 L Hct 40 L MCV 95 H MCH 33 H MCHC 35 RDW 14 Plt Count 204 MPV 7.3 L Neut % (Auto) 66.5 Lymph % (Auto) 23.3 [place] % (Auto) 7.6 Eos % (Auto) 2.0 Baso % (Auto) 0.6 Absolute Neuts (auto) 7.9 H Absolute Lymphs (auto) 2.8 Absolute Monos (auto) 0.9 H Absolute Eos (auto) 0.2 Absolute Basos (auto) 0.1 Absolute Nucleated RBC 0.0 Nucleated RBC % 0.1 INR (Anticoag Therapy) 1.21 H Sodium Potassium Chloride Carbon Dioxide Anion Gap BUN Creatinine Est GFR ( Amer) Est GFR (Non-Af Amer) BUN/Creatinine Ratio Glucose Calcium Total Bilirubin Direct Bilirubin Indirect Bilirubin AST ALT Alkaline Phosphatase Ammonia Troponin I Total Protein Albumin Globulin Albumin/Globulin Ratio Vitamin B12 TSH Diagnostic Imaging: *[facility]* [place] [address] Fax #: [phone] Transthoracic Echocardiogram Patient: Wyatt Pedro : 1940 Study Date: 09/08/2018 Age: 77 Gender: M HR: 70 bpm Height: 73 in /185.4 cm BSA: 2.37 m^2 Weight: 249.5 lb /113.4 kg BMI: 33 kg/m^2 *Keyboard Instrument Tuner: * Cecilia Perea [facility] *Referring Physician: * Tu Cowart *Reading Physician: * Hasmukh Chávez MD Indications: Congestive Heart Failure. History: Atrial fibrillation. Coronary artery disease. Chronic obstructive pulmonary disease. Risk factors: Hypertension. Dyslipidemia. Labs, prior tests, procedures, and surgery: Coronary artery bypass grafting. Conclusions Summary: 1. Left ventricle: Systolic function is mildly to moderately reduced. The estimated ejection fraction is 35-40%. Moderate diffuse hypokinesis. 2. Right ventricle: Systolic function is mildly to moderately reduced. 3. Mitral valve: There is no evidence of stenosis. There is no significant regurgitation. 4. Aortic valve: There is no evidence of stenosis. There is trivial regurgitation. 5. Tricuspid valve: There is trivial regurgitation. This report is only to be considered final once signed by the Provider(s) as displayed in the "<Electronically Signed by >" field (s). Absence of a signature indicates the report is in a draft status and still needs to be finalized. In the event this document was created by someone other than the signing Provider, the individual initiating the document will be listed in the "Entered by:" or "Dictated by:" rabago. Patient Name: WYATT PEDRO Medical Record#: [id number] Ordering Physician: Betty Calabrese MD Acct.#: [id number] : 1940 Age: 78 Sex: M Location: [address] [place] [address] MEDICAL/TELEMETRY Exam Date: 09/11/18 0700 ADM Status: ADM Vero Order Information: NM MYOCARDIAL MULTI RESTING; NUCLEAR CARDIAC STRESS TEST Accession Number: [id number]; [id number] CPT: 43880 Edited for charges. Indication: Chest pain. Myocardial perfusion scan was performed utilizing 1 day protocol. Rest myocardial perfusion was performed after intravenous injection of 10.76 seconds of technetium 99 and tetrofosmin. Pharmacological stress was applied and 25.2 mCi of technetium 99 and tetrofosmin was injected. There is homogeneous distribution of the radiotracer throughout the left ventricle with mild ventriculomegaly. There is thinning of the left apex. There may be some reversible change is noted. Ejection fraction is 41%. IMPRESSION: There appears to be some reversible change in the apex. Global hypokinesis is noted. ASSESSMENT: Intermediate risk Based on imaging criteria from ACC/AHA 2002 Guideline Update for the Management of Patients With Chronic Stable Angina Table 23. Noninvasive Risk Stratification. Reference. Dictated By: Tena Garcia MD Dictated Date/Time: 09/11/18 1523 Transcribed Date/Time: 09/11/18 1517 Copy to: CC: Imaging - [facility] Imaging - [facility] Imaging - [facility] [address] [facility] This report is only to be considered final once signed by the Provider(s) as displayed in the "<Electronically Signed by >" field (s). Absence of a signature indicates the report is in a draft status and still needs to be finalized. In the event this document was created by someone other than the signing Provider, the individual initiating the document will be listed in the "Entered by:" or "Dictated by:" rabago. 1 of 2 EKG Data: ECG from 09/12/2018 AF rate 82. no interval changes Telemetry: Afib rate 40-100's with pauses less than 3 seconds. Assessment/Plan #1 newly diagnosed LV dysfunction; LVEF 35-40% on 09/07/2018 echo. He is compensated on exam. On Toprol 25mg/day Losartan 25 mg Po BID. Will reduce toprol given periods of relative bradycardia. He is not symptomatic. Will add Aldactone 12.5mg/day. Continue ARB therapy. Follow k+ and BMP closely. Etiology is likely ischemic. #2 h/o CAD with prior CABG. Per [facility] 09/15/2018 continue medical therapy. Troponin was normal. LVEF now 35-40%. On ASA, statin and bblocker therapy. He follows Dr. Victoria outpatient. right femoral access site is intact. #3 h/o AF appears to be persistent. He has a component of SSS HR 40-100's. He is not symptomatic. pauses are < 3 seconds. Will reduce Toprol to 12.5mg/day and follow on telemetry. OAC is on hold due to potential LP. #4 Dispositon pending course. Patient DNR. Will likely sign off case. Will d/w Dr. Chávez. Patient should f/u with primary telemarketer Dr. Victoria in 2 weeks. Attending: Hasmukh Chávez
[2018-09-16 12:11] LABS: Urine Appearance Clear; Urine Bacteria Absent (Absent); Urine Bilirubin Negative (Negative); Urine Blood 1+ (Negative); Urine Color Yellow; Urine Glucose Negative (Negative); Urine Ketones Negative (Negative); Urine Nitrite Negative (Negative); Urine Protein 2+(100 mg/dL) (Negative); Urine Red Blood Cell Trace(0-2/hpf) (Absent); Urine Specific Gravity 1.023 (1.010-1.030); Urine Urobilinogen Negative (Negative); Urine White Blood Cell Trace(0-5/hpf) (Absent)
[2018-09-16] MEDS: Haloperidol TAB* 2 MG PO PRN ×2 (14:50→21:26)
[2018-09-16] MEDS ORDERED: Senna TAB 8.6 mg* TAB PO PRN (17:03)
[2018-09-16] MEDS: Nitroglycerin TAB 0.4 MG* 0.4 MG TAB SL PRN ×2 (17:48)
[2018-09-16] MEDS: Docusate CAP* 100 MG PO SCH (17:48)
--- NOTE | 2018-09-16 19:12 | CONS ---
NEUROLOGY CONSULT FOLLOWUP: DATE OF FOLLOWUP: 09/16/18 HOSPITALIST: Dr. Lina Chaidez. CHIEF COMPLAINT: Headache, confusion. INTERVAL HISTORY: Since seen by Dr. Mcclure in neurological consultation on 09/08, Mr. Pedro has continued with headaches. He was discharged on 09/10/18, but came back the same day. His daughter is present in the room and she said they found him in his place on the floor extremely confused and minimally responsive. He was brought back in the hospital and has been confused since. She had not seen him and was unaware he had been in the hospital from 09/07/18 to 09/10/18, so is not aware when his cognitive state changed. She said, however, he was a self-sufficient person and might have some forgetfulness for names, but was otherwise independent. The onset of the headaches is unclear. The headaches are occipital in nature and persistent. He has had them at least since 09/07/18 and probably prior to that he had been to [place] [facility] at least once if not twice according to his daughter for head-aches. She does not recall history of headaches in the distant past, but she has not been that close to him in recent years it sounds. I reviewed the records from the initial hospitalization as well as the rehospitalization on 09/10/18. MEDICATIONS: Reviewed and he is currently on: 1. Amlodipine 10 mg p.o. q. day. 2. Aspirin 81 mg p.o. q. day. 3. Doxycycline 100 mg p.o. b.i.d. 4. Colace 100 mg 2 tablets p.o. q. day. 5. Lovenox 80 mg subcutaneous q.24 hours. 6. Gabapentin 100 mg p.o. q.h.s. 7. Ketorolac 30 mg IV push q.6 hours as needed for pain. 8. Metoprolol XL 25 mg p.o. q.h.s. 9. Morphine sulfate 2 mg IV q.4 hours as needed for severe pain. 10. Transderm nitroglycerin 5 mg by patch q. day. 11. Entresto one tab p.o. b.i.d. 12. Simvastatin 10 mg p.o. q. day. 13. Tramadol. 14. Warfarin. PHYSICAL EXAM: He is uncomfortable lying on his side. Temperature is 97.4, heart rate 90s, respiratory rate 16, oxygen saturation is 95% on room air. Most recent blood pressure 158/96. On exam, he is awake and responds, but has a paucity of verbal output. He complains of pain and has not much else that he is willing to respond to. He complains of pain in the back of his head and his neck. Speech is clear. There is no myoclonus. He is perfectly alert. He is not very cooperative. LABORATORY DATA: Includes a CBC from today notable for white blood cell count 11.8, which is up a little bit from yesterday at 10.4. His hematocrit is stable at 40%. Platelet count is normal at 204,000. Sedimentation rate on was normal at 21. INR this morning is 1.21. Chemistries from this morning notable for a sodium of 131, creatinine of 1.2 which is up a little bit from prior values, liver enzymes are normal. Vitamin B12 level this morning normal at 972 and TSH at 1.15. He had a normal ammonia level this morning at 36. Tick-borne infection panel is positive for IgM Lyme and negative for IgG Lyme. The rest of the tick- borne panel is negative. IMPRESSION AND PLAN: Impression is that of possible early Lyme disease causing headache and some confusion. Discussion has been carried out with Dr. Chaidez and other providers through the day and it was decided not to pursue a lumbar puncture because his anticoagulation would need to be stopped and we can just treat with doxycycline in either case and repeat his Lyme serologies in a few weeks to see if he seroconverts to IgG positivity as well. Dr. Mcclure felt his headaches were more from his neck and that is entirely possible as well. I am going to go ahead and get an MRI of his cervical spine tomorrow. He is also on a nitro patch, which could also cause headaches as well as aggravate preexisting headaches. In regards to his confusion, I would like to repeat his sed rate and CRP. The rest of his labs are pretty unremarkable. I do not really see anything in his labs that are new that would likely cause delirium and so I will await the MRI of his neck and the additional blood tests and reevaluate tomorrow. [id number]/[facility] #: [id number] [facility] CENTERRobbie
[2018-09-16] MEDS ORDERED: Enoxaparin(*) 80 MG/0.8 ML SYR SUBCUT SCH (19:30)
[2018-09-16] MEDS ORDERED: Warfarin TAB(*) 4 MG PO SCH (19:30)
[2018-09-16] MEDS: Metoprolol Succinate XL TAB* 25 MG PO SCH (21:26)
[2018-09-16] MEDS: Gabapentin CAP(*) 100 MG PO SCH (21:27)
[2018-09-17] MEDS: Acetaminophen TAB* 325 MG PO PRN ×3 (01:49→21:44)
[2018-09-17] MEDS: Ketorolac INJ* 30 MG/ML 1 ML VIAL IV PUSH PRN (03:16)
[2018-09-17] MEDS: Haloperidol TAB* 2 MG PO PRN (03:32)
[2018-09-17 06:59] LABS: INR 1.57 (0.82-1.09)
[2018-09-17] MEDS ORDERED: amLODIPine TAB* 5 MG PO SCH ×2 (07:00→16:23)
[2018-09-17 07:06] LABS: BUN/Creatinine Ratio 23.5 (8-20); EGFR African American 71.9 (>60); EGFR Non-African American 59.4 (>60); Potassium 3.9 mmol/L (3.5-5.0)
--- NOTE | 2018-09-17 07:59 | PN ---
Subjective Date of Service: 09/17/18 Interval History: HD # 8 on 09/17 78M with afib, CAD s/p CABG, HFrEF 35-40%, HTN, COPD, h/o PE 2011, early Lyme who presented initially for new HfrEF course c/b delerium, new L parietal non hemmorhagic stroke. Overnight, c/o pain and still signs of delerium, HTN to 180s, reviewed meds, added Amlodipine Seen by Neuro who recommended repeat imaging, went for MRI this morning which revealed a new stroke. Labs: Mild Leukocytosis this AM, persistent mild hypoNA and mild elevated Cr, improved from 09/16 This morning, he seems confused but calmer less c/o pain, tolerating diet. No CP , SOB, no GI, complaints, just vauge all over and neck pain. Objective Active Medications: Acetaminophen (Tylenol Tab*) 650 mg PO Q4H PRN PRN Reason: FEVER/PAIN Last Admin: 09/17/18 05:56 Dose: 650 mg Albuterol/Ipratropium (Duoneb (Albuterol 2.5 Mg/Ipratropium 0.5 Mg)) 1 neb INH [id number] AWAKE PRN PRN Reason: sob/wheezing Last Admin: 09/14/18 18:26 Dose: 1 neb Amlodipine Besylate (Norvasc Tab*) 5 mg PO DAILY [facility] Last Admin: 09/17/18 06:12 Dose: 5 mg Aspirin (Aspirin Ec Tab*) 81 mg PO DAILY [facility] Last Admin: 09/16/18 09:40 Dose: 81 mg Calcium Carbonate (Tums*) 500 mg PO TID PRN PRN Reason: INDIGESTION Docusate Sodium (Colace Cap*) 200 mg PO DAILY [facility] Last Admin: 09/16/18 17:48 Dose: 200 mg Doxycycline Hyclate (Vibramycin Cap(*)) 100 mg PO BID [facility] Last Admin: 09/16/18 21:27 Dose: 100 mg Enoxaparin Sodium (Lovenox(*)) 80 mg SUBCUT Q24H [facility] Last Admin: 09/16/18 19:19 Dose: 80 mg Gabapentin (Neurontin Cap(*)) 100 mg PO BEDTIME [facility] Last Admin: 09/16/18 21:27 Dose: 100 mg Haloperidol (Haldol Tab*) 4 mg PO Q6H PRN PRN Reason: AGITATION Last Admin: 09/17/18 03:32 Dose: 4 mg Ketorolac Tromethamine (Toradol Inj*) 30 mg IV PUSH Q6H PRN PRN Reason: PAIN Last Admin: 09/17/18 03:16 Dose: 30 mg Losartan Potassium (Cozaar Tab*) 25 mg PO BID [facility] Last Admin: 09/16/18 21:27 Dose: 25 mg Metoprolol Succinate (Toprol Xl Tab*) 12.5 mg PO BEDTIME [facility] Last Admin: 09/16/18 21:26 Dose: 12.5 mg Nitroglycerin (Nitroglycerin Tab 0.4 Mg*) 0.4 mg SL Q5M PRN PRN Reason: ANGINA Last Admin: 09/16/18 17:48 Dose: 0.4 mg Senna (Senokot Tab*) 2 tab PO BEDTIME PRN PRN Reason: CONSTIPATION Last Admin: 09/16/18 21:27 Dose: 2 tab Simvastatin (Zocor(Nf)) 10 mg PO DAILY [facility] Last Admin: 09/16/18 09:41 Dose: 10 mg Spironolactone (Aldactone Tab*) 12.5 mg PO DAILY [facility] Tiotropium [place] (Spiriva Cap.Inh*) 1 cap INH DAILY [facility] Last Admin: 09/16/18 07:48 Dose: 1 cap Warfarin Sodium (Coumadin Tab(*)) 8 mg PO DAILY@1700 [facility]; Protocol Last Admin: 09/16/18 19:19 Dose: 8 mg Vital Signs - 8 hr 09/17/18 09/17/18 09/17/18 00:05 00:37 02:00 Temperature 97.2 F 97.3 F Pulse Rate 72 77 Respiratory 16 16 20 Rate Blood Pressure 135/53 154/85 (mmHg) O2 Sat by Pulse 97 97 Oximetry 09/17/18 09/17/18 04:20 06:00 Temperature 97.4 F 97.5 F Pulse Rate 75 74 Respiratory 18 18 Rate Blood Pressure 161/61 186/91 (mmHg) O2 Sat by Pulse 95 95 Oximetry Oxygen Devices in Use Now: None Appearance: Confused man in NAD, resting in bed, co shoulder pain and chills Ears/Nose/Mouth/Throat: NL Teeth, Lips, Gums Neck: NL Appearance and Movements; NL JVP Respiratory: Symmetrical Chest Expansion and Respiratory Effort Cardiovascular: - - irreg irreg Abdominal: NL Sounds; No Tenderness; No Distention, No Hepatosplenomegaly Lymphatic: No Cervical Adenopathy Extremities: No Edema Skin: No Rash or Ulcers Neurological: - - Oriented to self Result Diagrams: 09/16/18 05:32 09/17/18 06:42 Additional Lab and Data: Microbiology and Other Data: Microbiology 09/12/18 10:11 Aerobic Blood Culture - Preliminary Blood Venous No Growth Day 1 Anaerobic Blood Culture - Preliminary No Growth Day 1 09/12/18 10:11 Aerobic Blood Culture - Preliminary Blood Venous No Growth Day 1 Anaerobic Blood Culture - Preliminary No Growth Day 1 EKG Data: Overnight 09/15: EKG with a fib no e/o acute ischemia Assess/Plan/Problems-Billing 78M with afib, CAD s/p CABG, HFrEF 35-40%, HTN, COPD, h/o PE 2011, early Lyme who presented initially for new HfrEF course c/b delerium, new L parietal/ temporal non hemmorhagic stroke. - Patient Problems (1) CVA (cerebral vascular accident) Current Visit: Yes Status: Acute Code(s): I63.9 - CEREBRAL INFARCTION, UNSPECIFIED SNOMED Code(s): 924919996 Comment: - New inthe last 3 days, leading to some confusion - 2/2 prevention with asa statin - PT OT - Echo done recently without bubble already on AC - Change warfarin to Elqiuis with lower risk of ICH conversion (2) Delirium Current Visit: Yes Status: Acute Code(s): R41.0 - DISORIENTATION, UNSPECIFIED SNOMED Code(s): 7046572 Comment: Hospital course complicated by ongoing delerium, worsened in later stay and now with new stroke. - Delirium w/u with MRI/MRA, TSH, B12, Ammonia, CXR unremarkable, UA to be collected all negative, repeat MRI since cath reveals new stroke, still most likely multifactorial (3) Headache Current Visit: Yes Status: Acute Code(s): R51 - HEADACHE SNOMED Code(s): 25613138 Comment: MRI C spine showing sig cervical dz likely occiotal coming from cervical neck pain (4) Heart failure with reduced ejection fraction Current Visit: Yes Status: Acute Code(s): I50.20 - UNSPECIFIED SYSTOLIC ( CONGESTIVE) HEART FAILURE SNOMED Code(s): 399648902 Comment: Echo with EF 35-40% with diffuse moderate hypokenisis, last echo 2018 normal -Likely 2/2 to progressed ICM -Cath 09/15 showing diffuse 3V dz -Optimized on Metoprolol, Losartan, Simvastatin (5) CAD (coronary artery disease) Current Visit: Yes Status: Acute Code(s): I25.10 - ATHSCL HEART DISEASE OF [place] CORONARY ARTERY W/O ANG PCTRS SNOMED Code(s): 46678971 Comment: s/p CABG - cont home aspirin and statin, optimize to high intenstiy (6) Atrial fibrillation Current Visit: Yes Status: Acute Code(s): I48.91 - UNSPECIFIED ATRIAL FIBRILLATION SNOMED Code(s): 19032937 Comment: CHADSVSC 6. Was on warfarin prior to presentation, bridged with heprain and lovenox while here, now starting DOAC -Cont rate control (7) Borderline results on serologic testing for Lyme disease Current Visit: Yes Status: Acute Code(s): R76.8 - OTHER SPECIFIED ABNORMAL IMMUNOLOGICAL FINDINGS IN SERUM SNOMED Code(s): 055335904 Comment: IgM can be c/w early lyme though false positive is quite common, given ongoing symptoms reasonable to continue at this time - He has rec'd Doxy 09/11-09/14AM, restarted 09/15 mid day, Day 08/01 on 09/17 (8) COPD (chronic obstructive pulmonary disease) Current Visit: Yes Status: Acute Code(s): J44.9 - CHRONIC OBSTRUCTIVE PULMONARY DISEASE, UNSPECIFIED SNOMED Code(s): 53579786 Comment: Not with active exacerbation. Wasn't on inhalers at home. No O2 requirement. - cont Spiriva daily - cont nebs prn (9) Hyponatremia Current Visit: Yes Status: Acute Code(s): E87.1 - HYPO-OSMOLALITY AND HYPONATREMIA SNOMED Code(s): 14797050 Comment: Present on admission -Mild -Urine [place] high concerning for SIADH (10) DVT prophylaxis Current Visit: Yes Status: Acute Code(s): Z29.9 - ENCOUNTER FOR PROPHYLACTIC MEASURES, UNSPECIFIED SNOMED Code(s): 970688243 Comment: on therapeutic AC (11) DNR (do not resuscitate) Current Visit: Yes Status: Acute Status and Disposition: Will likely need STR vs placement
[2018-09-17] MEDS: Tiotropium CAP.INH* CAP.INH/18 MCG (USE ORDER SET !) INH SCH (08:01)
[2018-09-17] MEDS ORDERED: Losartan TAB* 25 MG PO SCH (09:00)
[2018-09-17] MEDS ORDERED: Spironolactone TAB* 25 MG PO SCH (09:00)
[2018-09-17] MEDS: Docusate CAP* 100 MG PO SCH (09:18)
[2018-09-17] MEDS: Spironolactone TAB* 25 MG PO SCH (09:18)
[2018-09-17] MEDS: CMCS:Simvastatin TAB(NF) 10 MG TAB PO SCH (09:19)
[2018-09-17] MEDS: DOXYcycline CAP(*) 100 MG PO SCH ×2 (09:19→21:43)
[2018-09-17] MEDS: Aspirin EC TAB* 81 MG TAB.EC PO SCH (09:19)
--- NOTE | 2018-09-17 17:42 | CONS ---
NEUROLOGY CONSULTATION FOLLOWUP: DATE OF FOLLOWUP: 09/17/18 LOCATION: He is an inpatient in room 435. HOSPITALIST: Dr. Lina Chaidez. CHIEF COMPLAINT: Headache, confusion. INTERVAL HISTORY: Since yesterday, Amado is feeling much better. His headache is much improved. He seems much more lucid as well. He has no new complaints. MEDICATIONS: Reviewed and he is on: 1. Amlodipine 5 mg p.o. daily. 2. Aspirin 81 mg p.o. daily. 3. Colace 200 mg p.o. daily. 4. Doxycycline 100 mg p.o. b.i.d. 5. Gabapentin 100 mg p.o. q.h.s. 6. Haloperidol 4 mg p.o. q.6 hours as needed for agitation. 7. Losartan 25 mg p.o. daily. 8. Metoprolol 12.5 mg p.o. daily. 9. Spiriva 1 inhalation daily. REVIEW OF SYSTEMS: Interval review of systems is otherwise unremarkable. PHYSICAL EXAM: He is afebrile, temperature 97.4 orally. Most recent blood pressure 125/82, heart rate in the 70s and regular. Respiratory rate is 16 and oxygen saturation is 97% on room air. He is a little bit sleepy, but much more alert than yesterday. Speech is clear. He has a partial right hemianopsia. Facial musculature is symmetric and hearing is intact. DIAGNOSTIC STUDIES/LAB DATA: Includes an MRI of the brain, which I reviewed the images of and reveals areas of restricted diffusion in the left parietal area and left head of the caudate nucleus. This is new since the last scan just approximately a week ago. Other laboratory data notable for a sedimentation rate of 15 this morning, a CRP yesterday mildly elevated at 8.42. 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 I should note his MRI of the cervical spine was done and does reveal pretty significant degenerative disk disease with stenosis at multiple levels, but no evidence of cord compression. I went over the case with Dr. Chaidez and recommended started apixaban. I would like to get a carotid ultrasound given that both of his lesions are in the distribution of the left carotid artery. His headaches are improved and I would continue doxycycline for 14 days. At some point, in 3 or 4 weeks or later from now, I would recommend repeating his Lyme serology to see if he seroconverts to IgG as well as IgM. I will continue to follow him while he is here in the hospital. [id number]/[facility] #: [id number] [place]
[2018-09-17] MEDS: Metoprolol Succinate XL TAB* 25 MG PO SCH (21:41)
[2018-09-17] MEDS: Apixaban* 5 MG TAB PO SCH (21:41)
[2018-09-17] MEDS: Gabapentin CAP(*) 100 MG PO SCH (21:43)
[2018-09-17] MEDS: Atorvastatin* 40 MG TAB PO SCH (21:43)
[2018-09-18 06:09] LABS: ABS Eosinophils 0.1 10^3/ul (0-0.6); ABS Lymphocytes 2.7 10^3/ul (1.0-4.8); ABS Monocytes 0.8 10^3/ul (0-0.8); ABS Neutrophils 5.8 10^3/ul (1.5-7.7); Eosinophil % 1.3 %; Hematocrit 39 % (42-52); Hemoglobin 13.5 g/dL (14.0-18.0); Lymphocyte % 28.3 %; Mean Corpuscular HGB Conc 34 g/dL (31-36); Mean Corpuscular Hemoglobin 33 pg (27-31); Mean Corpuscular Volume 96 fL (80-94); Mean Platelet Volume 7.4 fL (7.4-10.4); Nucleated Red Blood Cells % 0.1; Platelet Count 221 10^3/uL (150-450); Red Blood Count 4.12 10^6 /uL (4.18-5.48); Red Cell Distribution Width 14 % (10-15); White Blood Count 9.5 10^3/uL (3.5-10.8)
[2018-09-18 06:37] LABS: BUN/Creatinine Ratio 22.5 (8-20); Calcium 9.3 mg/dL (8.6-10.3); EGFR African American 71.2 (>60); EGFR Non-African American 58.9 (>60); Potassium 4.2 mmol/L (3.5-5.0)
[2018-09-18] MEDS: Tiotropium CAP.INH* CAP.INH/18 MCG (USE ORDER SET !) INH SCH (07:11)
[2018-09-18] MEDS: DOXYcycline CAP(*) 100 MG PO SCH ×2 (09:30→21:00)
[2018-09-18] MEDS: Docusate CAP* 100 MG PO SCH (09:30)
[2018-09-18] MEDS: Losartan TAB* 25 MG PO SCH (09:30)
[2018-09-18] MEDS: Spironolactone TAB* 25 MG PO SCH (09:30)
[2018-09-18] MEDS: amLODIPine TAB* 5 MG PO SCH (09:30)
[2018-09-18] MEDS: Aspirin EC TAB* 81 MG TAB.EC PO SCH (09:31)
[2018-09-18] MEDS: Apixaban* 5 MG TAB PO SCH ×2 (09:31→21:00)
[2018-09-18] MEDS: Acetaminophen TAB* 325 MG PO PRN (09:36)
--- NOTE | 2018-09-18 14:38 | PN ---
Subjective Date of Service: 09/18/18 Interval History: HD # 9 on 09/18 78M with afib, CAD s/p CABG, HFrEF 35-40%, HTN, COPD, h/o PE 2011, early Lyme who presented initially for new HFrEF course c/b delirium, new L parietal non hemorrhagic stroke. Overnight, less pain, VSS and seems clearer Labs: Mild Leukocytosis this AM, persistent mild hypoNA and mild elevated Cr This morning, MUCH clearer and pleasant, "they tell me I had a stroke" also c/o less pain, polite AOx2 (self and hospital). Otherwsie no CP or SOB, would like to shower, would like to work with PT Objective Active Medications: Acetaminophen (Tylenol Tab*) 650 mg PO Q4H PRN PRN Reason: FEVER/PAIN Last Admin: 09/18/18 09:36 Dose: 650 mg Albuterol/Ipratropium (Duoneb (Albuterol 2.5 Mg/Ipratropium 0.5 Mg)) 1 neb INH [id number] AWAKE PRN PRN Reason: sob/wheezing Last Admin: 09/14/18 18:26 Dose: 1 neb Amlodipine Besylate (Norvasc Tab*) 5 mg PO DAILY [facility] Last Admin: 09/18/18 09:30 Dose: 5 mg Apixaban (Eliquis*) 5 mg PO BID [facility] Last Admin: 09/18/18 09:31 Dose: 5 mg Aspirin (Aspirin Ec Tab*) 81 mg PO DAILY [facility] Last Admin: 09/18/18 09:31 Dose: 81 mg Atorvastatin Calcium (Lipitor*) 40 mg PO 2100 [facility] Last Admin: 09/17/18 21:43 Dose: 40 mg Calcium Carbonate (Tums*) 500 mg PO TID PRN PRN Reason: INDIGESTION Docusate Sodium (Colace Cap*) 200 mg PO DAILY [facility] Last Admin: 09/18/18 09:30 Dose: 200 mg Doxycycline Hyclate (Vibramycin Cap(*)) 100 mg PO BID [facility] Last Admin: 09/18/18 09:30 Dose: 100 mg Gabapentin (Neurontin Cap(*)) 100 mg PO BEDTIME [facility] Last Admin: 09/17/18 21:43 Dose: 100 mg Haloperidol (Haldol Tab*) 4 mg PO Q6H PRN PRN Reason: AGITATION Last Admin: 09/17/18 03:32 Dose: 4 mg Ketorolac Tromethamine (Toradol Inj*) 30 mg IV PUSH Q6H PRN PRN Reason: PAIN Last Admin: 09/17/18 03:16 Dose: 30 mg Losartan Potassium (Cozaar Tab*) 50 mg PO DAILY [facility] Last Admin: 09/18/18 09:30 Dose: 50 mg Metoprolol Succinate (Toprol Xl Tab*) 12.5 mg PO BEDTIME [facility] Last Admin: 09/17/18 21:41 Dose: 12.5 mg Nitroglycerin (Nitroglycerin Tab 0.4 Mg*) 0.4 mg SL Q5M PRN PRN Reason: ANGINA Last Admin: 09/16/18 17:48 Dose: 0.4 mg Senna (Senokot Tab*) 2 tab PO BEDTIME PRN PRN Reason: CONSTIPATION Last Admin: 09/16/18 21:27 Dose: 2 tab Spironolactone (Aldactone Tab*) 25 mg PO DAILY [facility] Last Admin: 09/18/18 09:30 Dose: 25 mg Tiotropium [place] (Spiriva Cap.Inh*) 1 cap INH DAILY [facility] Last Admin: 09/18/18 07:11 Dose: 1 cap Vital Signs - 8 hr 09/18/18 09/18/18 09/18/18 07:55 08:00 11:15 Temperature 97 F Pulse Rate 91 95 Respiratory 16 16 16 Rate Blood Pressure 126/91 151/96 (mmHg) O2 Sat by Pulse 97 98 Oximetry 09/18/18 12:29 Temperature 98.8 F Pulse Rate Respiratory Rate Blood Pressure (mmHg) O2 Sat by Pulse Oximetry Oxygen Devices in Use Now: None Appearance: Pleasant man in NAD Eyes: No Scleral Icterus, PERRLA Ears/Nose/Mouth/Throat: NL Teeth, Lips, Gums Respiratory: Symmetrical Chest Expansion and Respiratory Effort Cardiovascular: NL Sounds; No Murmurs; No JVD, - - irreg irreg Abdominal: NL Sounds; No Tenderness; No Distention, No Hepatosplenomegaly Lymphatic: No Cervical Adenopathy Extremities: No Edema Skin: No Rash or Ulcers Neurological: - - Oriented x 2 Result Diagrams: 09/18/18 05:22 09/18/18 05:23 Additional Lab and Data: Microbiology and Other Data: Microbiology 09/12/18 10:11 Aerobic Blood Culture - Preliminary Blood Venous No Growth Day 1 Anaerobic Blood Culture - Preliminary No Growth Day 1 09/12/18 10:11 Aerobic Blood Culture - Preliminary Blood Venous No Growth Day 1 Anaerobic Blood Culture - Preliminary No Growth Day 1 EKG Data: Overnight 09/15: EKG with a fib no e/o acute ischemia Assess/Plan/Problems-Billing 78M with afib, CAD s/p CABG, HFrEF 35-40%, HTN, COPD, h/o PE 2011, early Lyme who presented initially for new HfrEF course c/b delerium, new L parietal/ temporal non hemmorhagic stroke. - Patient Problems (1) CVA (cerebral vascular accident) Current Visit: Yes Status: Acute Code(s): I63.9 - CEREBRAL INFARCTION, UNSPECIFIED SNOMED Code(s): 395405874 Comment: - New in the last 3 days, leading to some confusion, residual word finding - 2/2 prevention with asa statin - PT OT - Echo done recently without bubble already on AC - Change warfarin to Elqiuis with lower risk of ICH conversion (2) Delirium Current Visit: Yes Status: Acute Code(s): R41.0 - DISORIENTATION, UNSPECIFIED SNOMED Code(s): 0477181 Comment: Hospital course complicated by ongoing delerium, worsened in later stay and now with new stroke. He has improved sig today, still with some waxing and wainig but not needing haldol. - Delirium w/u with MRI/MRA, TSH, B12, Ammonia, CXR unremarkable, UA to be collected all negative, repeat MRI since cath reveals new stroke, still most likely multifactorial (3) Headache Current Visit: Yes Status: Acute Code(s): R51 - HEADACHE SNOMED Code(s): 78667069 Comment: MRI C spine showing sig cervical dz likely occiotal coming from cervical neck pain (4) Heart failure with reduced ejection fraction Current Visit: Yes Status: Acute Code(s): I50.20 - UNSPECIFIED SYSTOLIC ( CONGESTIVE) HEART FAILURE SNOMED Code(s): 508221187 Comment: Echo with EF 35-40% with diffuse moderate hypokenisis, last echo 2017 normal -Likely 2/2 to progressed ICM -Cath 09/15 showing diffuse 3V dz -Optimized on Metoprolol, Losartan, Atorva (5) CAD (coronary artery disease) Current Visit: Yes Status: Acute Code(s): I25.10 - ATHSCL HEART DISEASE OF [place] CORONARY ARTERY W/O ANG PCTRS SNOMED Code(s): 12869774 Comment: s/p CABG - cont home aspirin and statin, optimize to high intenstiy (6) Atrial fibrillation Current Visit: Yes Status: Acute Code(s): I48.91 - UNSPECIFIED ATRIAL FIBRILLATION SNOMED Code(s): 08098495 Comment: CHADSVSC 6. Was on warfarin prior to presentation, bridged with heprain and lovenox while here, now starting DOAC -Cont rate control (7) Borderline results on serologic testing for Lyme disease Current Visit: Yes Status: Acute Code(s): R76.8 - OTHER SPECIFIED ABNORMAL IMMUNOLOGICAL FINDINGS IN SERUM SNOMED Code(s): 748541372 Comment: IgM can be c/w early lyme though false positive is quite common, given ongoing symptoms reasonable to continue at this time - He has rec'd Doxy 09/11-09/14AM, restarted 09/15 mid day, Day 08/31 on 09/18 (8) COPD (chronic obstructive pulmonary disease) Current Visit: Yes Status: Acute Code(s): J44.9 - CHRONIC OBSTRUCTIVE PULMONARY DISEASE, UNSPECIFIED SNOMED Code(s): 16562762 Comment: Not with active exacerbation. Wasn't on inhalers at home. No O2 requirement. - cont Spiriva daily - cont nebs prn (9) Hyponatremia Current Visit: Yes Status: Acute Code(s): E87.1 - HYPO-OSMOLALITY AND HYPONATREMIA SNOMED Code(s): 84206233 Comment: Present on admission -Mild -Urine [place] high concerning for SIADH (10) DVT prophylaxis Current Visit: Yes Status: Acute Code(s): Z29.9 - ENCOUNTER FOR PROPHYLACTIC MEASURES, UNSPECIFIED SNOMED Code(s): 154790300 Comment: on therapeutic AC (11) DNR (do not resuscitate) Current Visit: Yes Status: Acute Status and Disposition: [facility] acceptance late this afternoon expected and d/c to [facility] tomorrow AM
[2018-09-18] MEDS: Atorvastatin* 40 MG TAB PO SCH (21:00)
[2018-09-18] MEDS: Gabapentin CAP(*) 100 MG PO SCH (21:00)
[2018-09-18] MEDS: Metoprolol Succinate XL TAB* 25 MG PO SCH (21:01)
--- NOTE | 2018-09-18 23:31 | DS ---
CC: IAN Granados; Dr. Deepak William; Dr. Victoria * DISCHARGE SUMMARY: DATE OF ADMISSION: 09/10/18 ANTICIPATED DATE OF DISCHARGE: 09/19/18 PRIMARY CARE PROVIDER: IAN Granados. NEUROLOGY: Dr. Deepak William. COOK SHIP: Dr. Victoria. DISPOSITION AT TIME OF DISCHARGE: Stable to discharge to short-term rehab unit for subacute rehab. PRIMARY DIAGNOSES: 1. Acute systolic heart failure with reduced ejection fraction with new ejection fraction of 30% to 35% secondary to ischemic cardiomyopathy. 2. New left parietal stroke with residual word-finding difficulty. 3. 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 SECONDARY DIAGNOSES: 1. Atrial fibrillation. 2. Coronary artery disease, status post coronary artery bypass graft. 3. Hypertension. 4. Chronic obstructive pulmonary disease. 5. Distant history of pulmonary embolism. MEDICATIONS: On discharge are as follows: 1. Amlodipine 5 mg p.o. daily. 2. Apixaban 5 mg p.o. b.i.d. 3. Atorvastatin 40 mg p.o. q.h.s. 4. Docusate 200 mg p.o. daily. 5. Doxycycline 100 mg p.o. b.i.d. for an additional 7 days status post discharge, to be completed on 09/26/18. 6. Aspirin 81 mg p.o. daily. 7. Gabapentin 100 mg p.o. q.h.s. 8. Losartan 50 mg p.o. daily. 9. Metoprolol succinate 12.5 mg p.o. q.h.s. 10. Nitroglycerin 0.4 mg p.o. q.5 minutes p.r.n. for chest pain. 11. Senna 2 tabs p.o. q.h.s. 12. Spironolactone 25 mg p.o. daily. 13. Spiriva 1 cap inhaled daily. 14. Krill and omega-3 fatty acid tablet 1 cap p.o. daily. 15. Folic acid 800 mcg p.o. daily. 16. Multivitamin 1 cap daily. Medication changes on this admission included: 1. Discontinuation of simvastatin in favor of atorvastatin 40 mg daily. 2. Discontinuation of warfarin in favor of Eliquis 5 mg p.o. b.i.d. 3. Dose lowering of amlodipine from 10 mg to 5 mg daily. 4. Addition of docusate and senna daily. 5. Doxycycline added 100 mg p.o. b.i.d. for an additional 7 days status post discharge for end date of 09/26/18. 6. Addition of spironolactone 25 mg p.o. daily. 7. Dose lowering of metoprolol from 25 mg p.o. q.h.s. to 12.5 mg succinate p.o. q.h.s. HOSPITAL COURSE BY ISSUE: A 78-year-old male with the above past medical history, who presented to the emergency room on 09/10/18 with complaint of headache and for ongoing complaints of dyspnea on exertion. The patient had 2 prior evaluations before this emergency room visit, one in the [place] [facility] where he presented with a headache and then another in the [facility] [place] [facility] Room where he again presented with a headache on . In his initial emergency room visits where he presented with a headache, he complained of throbbing head pain that was most prominent at the occiput and was thought to be secondary to occipital neuralgia during his workup, which included an MRI and MRA which were unremarkable. They also did testing for Lyme disease on 09/10/18. The patient's Lyme IgM came back positive, although IgG was negative, and he was contacted by the emergency room to re-present for doxycycline for presumed early Lyme. On 09/10/18, he was accompanied by his daughters who also noted that he has been with complaint of subacute dyspnea on exertion and also with some mild behavioral disturbances that were subacute in nature as well. On 09/10/18 presentation, a chest x-ray was done that showed signs of volume overload and the hospitalist team was asked to admit the patient for signs and symptoms of volume overload, possible early Lyme disease, and workup for mild cognitive impairments that were subacute in nature. His hospital course by problems is as follows: 1. Shortness of breath. The patient appeared to be volume overloaded on admission, and a transthoracic echocardiogram done showed heart failure with new reduced ejection fraction to 35% to 40% with diffuse hypokinesis. This is most likely the cause of his shortness of breath. 2. New acute systolic heart failure with reduced ejection fraction of 35% to 40 %. The patient had catheterization done by Cardiology on 09/15/18, which showed severe 3-vessel coronary artery disease with an occluded left anterior descending and left circumflex and occluded distal right coronary artery, saphenous vein graft to OM1 and OM2 is patent, left internal mammary artery to the left anterior descending is patent, and right internal mammary artery to the posterior descending artery is occluded. Overall impression from catheterization is that the patient had worsening triple-vessel disease with no areas of obvious intervention and recommendations to be medically managed were made on day of catheterization. 3. Possible early Lyme disease. The patient had IgM positive but IgG negative , which can be consistent with early Lyme disease. He is a poor historian and a vague historian. While Lyme antibiotics were continued during this hospitalization, they were briefly discontinued as consultation with ID felt that it may not represent true infection. The patient had some complications with delirium (see below) and the decision to restart doxycycline given his mental status that worsened after stopping was made on 09/15/18. He received doxy from 09/11/18 to 09/14/18 and then was restarted on 09/15/18 morning. He in fact only missed one dose on 09/14/18 p.m., and overall, it seemed reasonable to treat for a full course given he did have diffuse pains and had vague delirium on presentation which could not be ruled out. 4. Delirium and likely underlying mild cognitive impairment. The patient had waxing and waning sensorium early in hospitalization, which was thought to be attributed to hospital delirium, possible Lyme, new heart failure in the setting of likely undiagnosed mild cognitive impairment after much discussion with family who revealed that the patient actually has been forgetful for 6 to 12 months. Unfortunately, after his catheterization, he became even more acutely confused with new neurologic deficits and a workup was initiated for worsening mental status, which revealed a new left parietal stroke diagnosed by MRI on 09/17/18 after reconsultation with Neurology post catheterization on where the patient had subtle word-finding deficits. The patient's delirium cleared significantly over the course of his hospitalization and by 03/08, he certainly has deficits in terms of word findings and is forgetful, but has less waxing and waning sensorium. He did respond well to 4 mg of oral haloperidol and did very poorly with opiate pain medications, which caused worsening agitation and thus should be avoided in subsequent care. 5. New left parietal and temporal stroke. This stroke is thought to have occurred in or around the time of his catheterization. The patient is on anticoagulation for atrial fibrillation and was actually kept on a heparin drip right up until catheterization and then was bridged with Lovenox to Coumadin, though nonetheless likely had a stroke during procedure as he had some word- finding difficulties status post this catheterization. Because he suffered with delirium during this hospitalization prior to his catheterization, his subtle word-finding difficulties were difficult to ascertain. On reconsultation with Neurology on 09/15/18 when we were considering LP versus MRI for further workup of his word-finding difficulties, a brain MRI was ordered which ultimately showed interval development of multiple foci of subacute nonhemorrhagic infarcts in the basal ganglia and left parietal lobe. Interestingly, his brain MRI from 09/08/18 where he initially presented to the emergency room for headache was wholly negative as was MRA. Carotid Dopplers were done on 09/17/18, which showed no evidence of hemodynamically significant stenosis. Neurology consulted on the patient and recommended optimizing the patient with that, he likely had cardioembolic strokes. He also could rule out that there was a component of Lyme meningoencephalitis given his delirium improved with doxycycline, though he felt cardioembolic stroke was likely prompted by cardiac catheterization. An MRI of his cervical spine was done at the same time of MRI of brain in 2013 and it did show significant degenerative disk disease, which is discussed as per below. Neurology also recommended starting apixaban for anticoagulation because there is less risk of intracranial hemorrhage status post stroke and this was discussed with family and they elected for Eliquis anticoagulation over warfarin, which was started on 09/17/18. Furthermore, Neurology recommended that he follow up in 3 to 4 weeks to see if Lyme serology converts and also for followup post stroke care. He is optimized to a high intensity statin, atorvastatin from simvastatin. An echocardiogram was done without bubble study, which is listed for new low ejection fraction, likely low yield without bubble study, and he is already anticoagulated. Thus, no need to determine if shunt is present. 6. Atrial fibrillation, on chronic anticoagulation. The patient was on warfarin prior to this admission. He was continued on anticoagulation with heparin drip up until his catheterization on 09/15/18 and then was started on Lovenox bridge to warfarin after catheterization and now has been started on Eliquis since discovery of stroke on 09/17/18. He should remain on DOAC for CHADS-VASc score of 6 and his rate control is with metoprolol succinate nightly. His dose was changed slightly given he had brief sinus pauses and can be titrated by Cardiology in the near future. 7. Hypertension. The patient's hypertension medications needed to be adjusted during this hospitalization secondary to his stroke, headache, as well as new heart failure regimen to be best optimized in the setting of worsening systolic heart failure secondary to ischemic cardiomyopathy. 8. Ischemic cardiomyopathy with chronic stable angina. The patient has new findings of ischemic cardiomyopathy with triple-vessel disease and has mild stable chronic angina that is responsive to nitroglycerin, which unfortunately exacerbates his headaches. He has the option of p.r.n. nitroglycerin, although Cardiology did not start Imdur or Ranexa and this decision can be deferred to outpatient. 9. Headaches, neck pain, and cervical stenosis. In the setting of workup for his delirium and neck pain while we were considering Lyme as a possibility, a cervical spine MRI was done, which showed significant stenosis at C2-C3, which may be contributing to his neck pain, although there was no clear intervenable lesion and this can be followed up by his primary care. 10. Chronic obstructive pulmonary disease. No evidence of acute exacerbation. The patient's home medications were continued. 11. History of distant pulmonary embolism. No effects. 12. Possible early Lyme disease. Continue antibiotics for a total course of 14 days given he had nominal improvement of his delirium symptoms. While it is likely multifactorial, we cannot rule out the Lyme did not contribute and it seems reasonable to treat him for a total of 14 days. Overall, the patient has had an unfortunate and complicated 3 to 4 weeks with diagnosis of possible early Lyme, new diagnosis of heart failure with reduced ejection fraction secondary to worsening triple-vessel disease and known ischemic cardiomyopathy, as well as new left parietal nonhemorrhagic stroke likely cardioembolic in nature caused by catheterization done on 09/15/18. 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 On day of discharge, he is ambulating and feeding himself. He is mildly confused, but his family feels that he is much more like his baseline. His pain from a headache standpoint has improved significantly and is best treated with Tylenol. Of note to accepting facility, narcotic pain medications exacerbate this patient's delirium considerably and should be avoided at all cost. LABS AND STUDIES DONE DURING THIS HOSPITALIZATION: Labs on 09/18/18, white blood cell count 9.5, hemoglobin 13.5, hematocrit 39, platelets 221. BMP shows sodium 132, potassium 4.2, chloride 100, carbon dioxide 24, anion gap 8, BUN 27 , creatinine 1.2, glucose 109. Last urinalysis on 09/16/18 showed no evidence of infection. TSH was 1.15 on 09/16/18. Vitamin B12 was 972 on 09/16/18. Ammonia is 36. LFTs are unremarkable. Lyme IgM is positive on 09/17/18. IgG is negative. Imaging includes 09/10/18 abdominal x-ray, no evidence of obstruction. chest x-ray, COPD and mild signs of volume overload with existing sternotomy. 09/11/18 stress test is abnormal with intermediate risk with change at the apex. 09/12/18 chest thorax CTA, no evidence of pulmonary embolus or aortic dissection. 09/15/18 cardiac catheterization shows severe triple-vessel disease as noted per above. 09/15/18 repeat chest x-ray shows no active cardiopulmonary disease. 09/17/18 brain MRI shows acute new left parietal nonhemorrhagic stroke and cervical spine shows multilevel degenerative disk disease as well as central canal stenosis at C2-C3 on 09/17/18. Carotid Doppler study on 09/17/18 shows no significant stenosis. CONSULTATIONS DURING THIS HOSPITALIZATION: Included Cardiology and Neurology. APPOINTMENTS TO FOLLOWUP STATUS POST DISCHARGE: Include followup with Cardiology, Dr. Luís Victoria, in 1 to 2 weeks; Dr. Deepak William, Neurology, within 4 to 6 weeks as well as primary care provider. ITEMS TO FOLLOW UP ON STATUS POST DISCHARGE: 1. New stroke. Ensure the patient's subtle word-finding deficits are improving , and if not, continue therapy. The patient's family is counseled of prognosis of this and followup with Neurology is recommended. 2. Atrial fibrillation. He is changed to a DOAC, which is preferred by Neurology. This can be continued with primary care. 3. Hypertension. Changes to medications were made in light of his new heart failure. Follow up blood pressure in primary care office. 4. New systolic heart failure secondary to ischemic cardiomyopathy. Medical management is expected given catheterization. No intervenable lesions and he may need to have his regimen changed in accordance with his ongoing chest pain if any. 5. Early Lyme disease. This is a possible diagnosis, but reasonable to treat given his improvement in neurologic symptoms with treatment and he should complete his course on 09/26/18. DISPOSITION AT TIME OF DISCHARGE: The patient will need subacute rehab for weakness, deconditioning seen during this hospitalization in the setting of new stroke and subtle word-finding difficulties. The patient will be discharged to [place] where he could be with his who lives close by. PHYSICAL EXAM ON DAY OF DISCHARGE: Reveals a pleasant man, in no acute distress with forgetful memory with frequent reorientation, but no other complaints. Lungs are clear to auscultation bilaterally. Heart exam shows irregularly irregular rhythm with no murmurs, rubs, or gallops. Belly is soft, nontender, nondistended. He has no lower extremity edema. He is voiding freely , tolerating diet, and ambulating with assistance. TIME SPENT: 60 minutes were spent on the planning of this discharge with over half of that spent directly at the bedside of the patient providing direct patient care. Plan of care discussed with the patient and family and they agreed with discharge to subacute rehab for further needs in the setting of above stroke. If there are any questions about the care this patient received during this hospitalization, please do not hesitate to reach out to the hospitalist team directly. Signs and symptoms of when to return to emergency room for acute care were reviewed with the patient and his family and they are in agreeance. [id number]/[facility] #: [id number] BLYTHED[facility] CHILDREN'S HOSPITALRobbie
--- NOTE | 2018-09-19 07:16 | PN ---
Subjective Date of Service: 09/19/18 Interval History: HD #10 on 09/19 78M with afib, CAD s/p CABG, HFrEF 35-40%, HTN, COPD, h/o PE 2011, early Lyme who presented initially for new HFrEF course c/b delirium, new L parietal non hemorrhagic stroke. Overnight, less pain, VSS and seems clearer Labs: na This morning, ready for d/c. Objective Active Medications: Acetaminophen (Tylenol Tab*) 650 mg PO Q4H PRN PRN Reason: FEVER/PAIN Last Admin: 09/18/18 09:36 Dose: 650 mg Albuterol/Ipratropium (Duoneb (Albuterol 2.5 Mg/Ipratropium 0.5 Mg)) 1 neb INH [id number] AWAKE PRN PRN Reason: sob/wheezing Last Admin: 09/14/18 18:26 Dose: 1 neb Amlodipine Besylate (Norvasc Tab*) 5 mg PO DAILY [facility] Last Admin: 09/18/18 09:30 Dose: 5 mg Apixaban (Eliquis*) 5 mg PO BID [facility] Last Admin: 09/18/18 21:00 Dose: 5 mg Aspirin (Aspirin Ec Tab*) 81 mg PO DAILY [facility] Last Admin: 09/18/18 09:31 Dose: 81 mg Atorvastatin Calcium (Lipitor*) 40 mg PO 2100 [facility] Last Admin: 09/18/18 21:00 Dose: 40 mg Calcium Carbonate (Tums*) 500 mg PO TID PRN PRN Reason: INDIGESTION Doxycycline Hyclate (Vibramycin Cap(*)) 100 mg PO BID [facility] Last Admin: 09/18/18 21:00 Dose: 100 mg Gabapentin (Neurontin Cap(*)) 100 mg PO BEDTIME [facility] Last Admin: 09/18/18 21:00 Dose: 100 mg Haloperidol (Haldol Tab*) 4 mg PO Q6H PRN PRN Reason: AGITATION Last Admin: 09/17/18 03:32 Dose: 4 mg Ketorolac Tromethamine (Toradol Inj*) 30 mg IV PUSH Q6H PRN PRN Reason: PAIN Last Admin: 09/17/18 03:16 Dose: 30 mg Losartan Potassium (Cozaar Tab*) 50 mg PO DAILY [facility] Last Admin: 09/18/18 09:30 Dose: 50 mg Metoprolol Succinate (Toprol Xl Tab*) 12.5 mg PO BEDTIME [facility] Last Admin: 09/18/18 21:01 Dose: 12.5 mg Nitroglycerin (Nitroglycerin Tab 0.4 Mg*) 0.4 mg SL Q5M PRN PRN Reason: ANGINA Last Admin: 09/16/18 17:48 Dose: 0.4 mg Spironolactone (Aldactone Tab*) 25 mg PO DAILY [facility] Last Admin: 09/18/18 09:30 Dose: 25 mg Tiotropium [place] (Spiriva Cap.Inh*) 1 cap INH DAILY [facility] Last Admin: 09/18/18 07:11 Dose: 1 cap Vital Signs - 8 hr 09/18/18 09/19/18 09/19/18 23:48 00:00 03:40 Temperature 97.4 F 97.6 F Pulse Rate 86 Respiratory 18 18 Rate Blood Pressure 159/75 (mmHg) O2 Sat by Pulse 97 98 Oximetry Oxygen Devices in Use Now: None Appearance: Pleasant man in NAD Ears/Nose/Mouth/Throat: NL Teeth, Lips, Gums Neck: NL Appearance and Movements; NL JVP Respiratory: Symmetrical Chest Expansion and Respiratory Effort Cardiovascular: NL Sounds; No Murmurs; No JVD, - - irreg irreg Abdominal: NL Sounds; No Tenderness; No Distention, No Hepatosplenomegaly Lymphatic: No Cervical Adenopathy Extremities: No Edema Skin: No Rash or Ulcers Result Diagrams: 09/18/18 05:22 09/18/18 05:23 Additional Lab and Data: Microbiology and Other Data: Microbiology 09/12/18 10:11 Aerobic Blood Culture - Preliminary Blood Venous No Growth Day 1 Anaerobic Blood Culture - Preliminary No Growth Day 1 09/12/18 10:11 Aerobic Blood Culture - Preliminary Blood Venous No Growth Day 1 Anaerobic Blood Culture - Preliminary No Growth Day 1 EKG Data: Overnight 09/15: EKG with a fib no e/o acute ischemia Assess/Plan/Problems-Billing 78M with afib, CAD s/p CABG, HFrEF 35-40%, HTN, COPD, h/o PE 2011, early Lyme who presented initially for new HfrEF course c/b delerium, new L parietal/ temporal non hemmorhagic stroke. - Patient Problems (1) CVA (cerebral vascular accident) Current Visit: Yes Status: Acute Code(s): I63.9 - CEREBRAL INFARCTION, UNSPECIFIED SNOMED Code(s): 098734699 Comment: - Likely during cath - 2/2 prevention with asa statin - PT OT - Echo done recently without bubble already on AC - Change warfarin to Elqiuis with lower risk of ICH conversion (2) Delirium Current Visit: Yes Status: Acute Code(s): R41.0 - DISORIENTATION, UNSPECIFIED SNOMED Code(s): 2080307 Comment: Hospital course complicated by ongoing delerium, worsened in later stay and now with new stroke. He has improved sig in the last 48 hours - Delirium w/u with MRI/MRA, TSH, B12, Ammonia, CXR unremarkable, UA to be collected all negative, repeat MRI since cath reveals new stroke, still most likely multifactorial (3) Headache Current Visit: Yes Status: Acute Code(s): R51 - HEADACHE SNOMED Code(s): 34848948 Comment: MRI C spine showing sig cervical dz likely occiotal coming from cervical neck pain (4) Heart failure with reduced ejection fraction Current Visit: Yes Status: Acute Code(s): I50.20 - UNSPECIFIED SYSTOLIC ( CONGESTIVE) HEART FAILURE SNOMED Code(s): 177325999 Comment: Echo with EF 35-40% with diffuse moderate hypokenisis, last echo 2018 normal -Likely 2/2 to progressed ICM -Cath 09/15 showing diffuse 3V dz -Optimized on Metoprolol, Losartan, Atorva (5) CAD (coronary artery disease) Current Visit: Yes Status: Acute Code(s): I25.10 - ATHSCL HEART DISEASE OF [place] CORONARY ARTERY W/O ANG PCTRS SNOMED Code(s): 09398389 Comment: s/p CABG - cont home aspirin and statin, optimize to high intenstiy (6) Atrial fibrillation Current Visit: Yes Status: Acute Code(s): I48.91 - UNSPECIFIED ATRIAL FIBRILLATION SNOMED Code(s): 37357874 Comment: CHADSVSC 6. Was on warfarin prior to presentation, bridged with heprain and lovenox while here, now starting DOAC -Cont rate control (7) Borderline results on serologic testing for Lyme disease Current Visit: Yes Status: Acute Code(s): R76.8 - OTHER SPECIFIED ABNORMAL IMMUNOLOGICAL FINDINGS IN SERUM SNOMED Code(s): 006867016 Comment: IgM can be c/w early lyme though false positive is quite common, given ongoing symptoms reasonable to continue at this time - He has rec'd Doxy 09/11-09/14AM, restarted 09/15 mid day, Day 08/31 on 09/18 (8) COPD (chronic obstructive pulmonary disease) Current Visit: Yes Status: Acute Code(s): J44.9 - CHRONIC OBSTRUCTIVE PULMONARY DISEASE, UNSPECIFIED SNOMED Code(s): 77601971 Comment: Not with active exacerbation. Wasn't on inhalers at home. No O2 requirement. - cont Spiriva daily - cont nebs prn (9) Hyponatremia Current Visit: Yes Status: Acute Code(s): E87.1 - HYPO-OSMOLALITY AND HYPONATREMIA SNOMED Code(s): 42119111 Comment: Present on admission -Mild -Urine [place] high concerning for SIADH (10) DVT prophylaxis Current Visit: Yes Status: Acute Code(s): Z29.9 - ENCOUNTER FOR PROPHYLACTIC MEASURES, UNSPECIFIED SNOMED Code(s): 219016834 Comment: on therapeutic AC (11) DNR (do not resuscitate) Current Visit: Yes Status: Acute Status and Disposition: [facility]ON[facility] acceptance, d/c
[2018-09-19] MEDS: Tiotropium CAP.INH* CAP.INH/18 MCG (USE ORDER SET !) INH SCH (07:32)
[2018-09-19] MEDS: Acetaminophen TAB* 325 MG PO PRN (07:50)
[2018-09-19] MEDS: DOXYcycline CAP(*) 100 MG PO SCH (07:54)
[2018-09-19] MEDS: Losartan TAB* 25 MG PO SCH (07:54)
[2018-09-19] MEDS: Aspirin EC TAB* 81 MG TAB.EC PO SCH (07:54)
[2018-09-19] MEDS: amLODIPine TAB* 5 MG PO SCH (07:55)
[2018-09-19] MEDS: Spironolactone TAB* 25 MG PO SCH (07:55)
[2018-09-19] MEDS: Apixaban* 5 MG TAB PO SCH (07:55)
[2018-09-19 10:47] VITALS: BP 158/108
== END 2018-09-19 11:14 | DRG 286 ==
LOC: ED 19:36 → MEDTELE 09-11 02:06 → OBSVTOIN 09-12 16:00 → MEDTELE 09-15 18:12
PROVIDERS: ADMIT Internal Medicine; ATTEND Internal Medicine
PROC: B21F1ZZ Fluoroscopy of Other Bypass Graft using Low Osmolar Contrast (ICD-10-PCS; 2018-09-15)
PROC: B2111ZZ Fluoroscopy of Multiple Coronary Arteries using Low Osmolar Contrast (ICD-10-PCS; principal; 2018-09-15 11:45)
DX: I11.0 Hypertensive heart disease with heart failure (principal); I50.21 Acute systolic (congestive) heart failure; I63.9 Cerebral infarction, unspecified; F05 Delirium due to known physiological condition; E87.1 Hypo-osmolality and hyponatremia; I48.1 Persistent atrial fibrillation; A69.21 Meningitis due to Lyme disease; J44.9 Chronic obstructive pulmonary disease, unspecified; F03.90 Unspecified dementia, unspecified severity, without behavioral disturbance, psychotic disturbance, mood disturbance, and anxiety; E78.5 Hyperlipidemia, unspecified; Z66 Do not resuscitate; I25.5 Ischemic cardiomyopathy; R41.89 Other symptoms and signs involving cognitive functions and awareness; I25.118 Atherosclerotic heart disease of native coronary artery with other forms of angina pectoris; M48.02 Spinal stenosis, cervical region; M50.31 Other cervical disc degeneration, high cervical region; K59.00 Constipation, unspecified; R79.89 Other specified abnormal findings of blood chemistry; I08.2 Rheumatic disorders of both aortic and tricuspid valves; R79.1 Abnormal coagulation profile; R51 Headache; D72.829 Elevated white blood cell count, unspecified; R00.1 Bradycardia, unspecified; Z95.1 Presence of aortocoronary bypass graft; Z86.711 Personal history of pulmonary embolism; Z79.82 Long term (current) use of aspirin; Z79.01 Long term (current) use of anticoagulants; Z88.8 Allergy status to other drugs, medicaments and biological substances; Z95.5 Presence of coronary angioplasty implant and graft; Z72.89 Other problems related to lifestyle; Z87.891 Personal history of nicotine dependence; Z76.5 Malingerer [conscious simulation]; Z86.73 Personal history of transient ischemic attack (TIA), and cerebral infarction without residual deficits
CPT/HCPCS: 36415; 70551; 71045; 71046; 71275; 72141; 74018; 78452; 80048; 80053; 80076; 81003; 81015; 82140; 82607; 82746; 83735; 83880; 83935; 84300; 84443; 84484; 85025; 85610; 85652; 85730; 86140; 87040; 87086; 93005; 93017; 93455; 93880; 94640; 99285; A9270-GY; A9502; C1760; C1887; G0378; G8978-GP-CJ; G8978-GP-CL; G8979-GP-CI; G8979-GP-CJ; J0280; J1644; J1650; J1885; J2250; J2270; J2785; J2930; J3010; J3475; Q9967

== ENCOUNTER 2023-01-31 09:14 | Inpatient (IN) ==
[2023-01-31] MEDS ORDERED: Albuterol 2.5mg/3 ml (0.083%) NEB.SOLN INH ONE (09:44)
[2023-01-31] MEDS ORDERED: Furosemide 40 mg/4 ml IV VIAL IV SLOW PU ONE ×2 (09:44→16:00)
[2023-01-31 10:04] LABS: PCO2 Arterial 45 mmHg (35-45); PO2 Arterial 78 mmHg (80-100)
[2023-01-31] MEDS ORDERED: methylPREDNISolone SOD SUCC 125 mg 2 ML VIAL IV ONE (10:13)
[2023-01-31 10:29] LABS: ABS Basophils 0.1 10^3/uL (0.0-0.1); ABS Eosinophils 0.2 10^3/uL (0.0-0.5); ABS Lymphocytes 1.4 10^3/uL (1.0-4.8); ABS Monocytes 0.7 10^3/uL (0.0-1.1); ABS Neutrophils 5.2 10^3/uL (1.5-7.6); Eosinophil % 2.5 %; Hematocrit 32.8 % (38-53); Lymphocyte % 19.1 %; Mean Corpuscular Hemoglobin 31.9 pg (27-33); Mean Corpuscular Hgb Conc 33.5 g/dL (31-36); Mean Corpuscular Volume 95.4 fL (80-97); Mean Platelet Volume 7.4 fL (7.5-11.2); Platelet Count 237 10^3/uL (150-450); Red Blood Count 3.43 10^6/uL (4.06-5.63); Red Cell Distribution Width 14.8 % (12-17); White Blood Count 7.6 10^3/uL (3.6-10.2)
[2023-01-31 10:35] LABS: INR 1.92 (0.83-1.13)
[2023-01-31 10:45] LABS: Albumin 3.2 g/dL (3.2-5.2); Albumin/Globulin Ratio 0.8 (1-3); Calcium 9.2 mg/dL (8.6-10.3); Creatinine, Serum 1.18 mg/dL (0.67-1.17); Potassium 4.2 mmol/L (3.5-5.0); Total Bilirubin 0.7 mg/dL (0.2-1.0); Total Protein 7.2 g/dL (6.4-8.9); eGFR CKD-EPI 62.4 (>60)
[2023-01-31] MEDS ORDERED: Iohexol 350 (CONTRAST) 500 ML MDV IV ONE (11:17)
[2023-01-31] MEDS ORDERED: Saline NASAL DROPS 0.65% BTL BOTH NARES ONE (12:14)
[2023-01-31 12:15] LABS: High Sensitivity Troponin 1 Hr 21 pg/mL (<20)
[2023-01-31] MEDS ORDERED: Sulfur Hexaflouride MICROSPHR 25 MG VIAL ONE (15:06)
[2023-01-31] MEDS ORDERED: Polyethylene Glycol 3350 17 GM PACKET PO PRN (18:03)
[2023-01-31] MEDS ORDERED: Albuterol HFA INHALER 8 gm MDI INH PRN (18:04)
[2023-01-31] MEDS ORDERED: Acetaminophen IV 1 GM/100ML 1,000 MG/100 ML BAG IV PRN (18:04)
[2023-01-31] MEDS ORDERED: Magnesium Sulfate 2 gm BAG 2 GM/50 ML BAG IVPB ONE (18:09)
[2023-01-31] MEDS ORDERED: Warfarin per PHARMACY **NOTE FOLLOW UP SCH (19:00)
[2023-01-31] MEDS: Senna TAB 8.6 mg TAB PO SCH (19:58)
[2023-01-31 23:20] LABS: Ferritin 526.3 ng/mL (24-336)
[2023-02-01 04:53] LABS: Hematocrit 28.5 % (38-53); Hemoglobin 9.6 g/dL (13.2-16.3); Mean Corpuscular Hemoglobin 31.9 pg (27-33); Mean Corpuscular Hgb Conc 33.5 g/dL (31-36); Mean Corpuscular Volume 95.1 fL (80-97); Mean Platelet Volume 7.5 fL (7.5-11.2); Platelet Count 194 10^3/uL (150-450); Red Cell Distribution Width 14.7 % (12-17); White Blood Count 4.2 10^3/uL (3.6-10.2)
[2023-02-01 05:11] LABS: Calcium 8.6 mg/dL (8.6-10.3); Creatinine, Serum 1.57 mg/dL (0.67-1.17); Potassium 4.2 mmol/L (3.5-5.0); eGFR CKD-EPI 44.3 (>60)
[2023-02-01 05:12] LABS: INR 2.17 (0.83-1.13)
[2023-02-01] MEDS ORDERED: Furosemide 40 mg/4 ml IV VIAL IV ONE (13:04)
[2023-02-01] MEDS: Warfarin DAILY REMINDER **NOTE FOLLOW UP SCH (17:12)
[2023-02-01] MEDS ORDERED: Furosemide 40 mg/4 ml IV VIAL IV SLOW PU ONE ×2 (19:00)
[2023-02-01] MEDS: Senna TAB 8.6 mg TAB PO SCH (20:19)
[2023-02-02] MEDS: Albuterol/Ipratropium NEB.SOL (2.5/0.5 MG) 3 ML NEB.SOLN INH PRN (00:50)
[2023-02-02 04:46] LABS: ABS Basophils 0.1 10^3/uL (0.0-0.1); ABS Eosinophils 0.1 10^3/uL (0.0-0.5); ABS Lymphocytes 2.1 10^3/uL (1.0-4.8); ABS Monocytes 1.1 10^3/uL (0.0-1.1); ABS Neutrophils 8.3 10^3/uL (1.5-7.6); Eosinophil % 0.7 %; Hematocrit 30.4 % (38-53); Hemoglobin 10.1 g/dL (13.2-16.3); Lymphocyte % 18.1 %; Mean Corpuscular Hemoglobin 31.6 pg (27-33); Mean Corpuscular Hgb Conc 33.2 g/dL (31-36); Mean Corpuscular Volume 95.3 fL (80-97); Mean Platelet Volume 7.8 fL (7.5-11.2); Platelet Count 229 10^3/uL (150-450); Red Blood Count 3.19 10^6/uL (4.06-5.63); Red Cell Distribution Width 14.8 % (12-17); White Blood Count 11.6 10^3/uL (3.6-10.2)
[2023-02-02 04:53] LABS: INR 2.63 (0.83-1.13)
[2023-02-02 05:02] LABS: Calcium 8.4 mg/dL (8.6-10.3); Creatinine, Serum 1.52 mg/dL (0.67-1.17); Potassium 4.4 mmol/L (3.5-5.0)
[2023-02-02 09:39] LABS: Venous Bicarbonate HCO3 30.8 mmol/L (24-28)
[2023-02-02] MEDS ORDERED: NS 0.9% 1000 ml BAG 1,000 ML IV SCH (10:00)
[2023-02-02 15:06] LABS: C Reactive Protein 17.45 mg/L (<8.01)
[2023-02-02] MEDS: Warfarin DAILY REMINDER **NOTE FOLLOW UP SCH (17:01)
[2023-02-02] MEDS: Senna TAB 8.6 mg TAB PO SCH (19:35)
[2023-02-02] MEDS: cefTRIAXone 1 gm/50 mL D5W 1 GM/50 ML BAG IV SCH ×2 (23:14)
[2023-02-03] MEDS ORDERED: Albumin Human 25% 25 GM/100 ML BTL IV ONE (01:11)
[2023-02-03] MEDS ORDERED: Furosemide 40 mg/4 ml IV VIAL IV ONE (01:11)
[2023-02-03 01:14] LABS: PCO2 Arterial 55 mmHg (35-45); PO2 Arterial 118 mmHg (80-100)
[2023-02-03 04:55] LABS: ABS Basophils 0.1 10^3/uL (0.0-0.1); ABS Eosinophils 0.1 10^3/uL (0.0-0.5); ABS Lymphocytes 1.3 10^3/uL (1.0-4.8); ABS Neutrophils 5.6 10^3/uL (1.5-7.6); Eosinophil % 1.7 %; Hematocrit 26.3 % (38-53); Hemoglobin 8.9 g/dL (13.2-16.3); Lymphocyte % 16.3 %; Mean Corpuscular Hemoglobin 32.4 pg (27-33); Mean Corpuscular Hgb Conc 33.9 g/dL (31-36); Mean Corpuscular Volume 95.6 fL (80-97); Mean Platelet Volume 7.2 fL (7.5-11.2); Nucleated Red Blood Cells % 0.1 %/100WBC (0.0-0.8); Platelet Count 185 10^3/uL (150-450); Red Blood Count 2.75 10^6/uL (4.06-5.63); Red Cell Distribution Width 14.8 % (12-17)
[2023-02-03 05:00] LABS: INR 3.05 (0.83-1.13)
[2023-02-03 05:09] LABS: Calcium 8.1 mg/dL (8.6-10.3); Creatinine, Serum 1.32 mg/dL (0.67-1.17); Magnesium 1.6 mg/dL (1.9-2.7); Potassium 4.4 mmol/L (3.5-5.0); eGFR CKD-EPI 54.5 (>60)
[2023-02-03] MEDS ORDERED: Magnesium Sulfate 2 gm BAG 2 GM/50 ML BAG IVPB ONE (07:20)
[2023-02-03] MEDS: Warfarin DAILY REMINDER **NOTE FOLLOW UP SCH (17:29)
[2023-02-03] MEDS: Senna TAB 8.6 mg TAB PO SCH (21:41)
[2023-02-04] MEDS: cefTRIAXone 1 gm/50 mL D5W 1 GM/50 ML BAG IV SCH ×2 (00:59→22:55)
[2023-02-04 04:35] LABS: INR 1.88 (0.83-1.13)
[2023-02-04 04:36] LABS: ABS Basophils 0.1 10^3/uL (0.0-0.1); ABS Eosinophils 0.2 10^3/uL (0.0-0.5); ABS Lymphocytes 1.7 10^3/uL (1.0-4.8); ABS Monocytes 1.1 10^3/uL (0.0-1.1); Eosinophil % 2.3 %; Hematocrit 27.7 % (38-53); Hemoglobin 9.2 g/dL (13.2-16.3); Lymphocyte % 18.4 %; Mean Corpuscular Hgb Conc 33.3 g/dL (31-36); Mean Platelet Volume 7.3 fL (7.5-11.2); Platelet Count 174 10^3/uL (150-450); Red Blood Count 2.89 10^6/uL (4.06-5.63); Red Cell Distribution Width 14.9 % (12-17)
[2023-02-04 04:54] LABS: Calcium 8.4 mg/dL (8.6-10.3); Creatinine, Serum 1.3 mg/dL (0.67-1.17); Potassium 4.8 mmol/L (3.5-5.0); eGFR CKD-EPI 55.5 (>60)
[2023-02-04] MEDS ORDERED: Furosemide 40 mg/4 ml IV VIAL IV ONE (15:04)
[2023-02-04] MEDS ORDERED: Sodium Chloride(INHALANT) 3% 4 ML NEB.SOLN INH PRN (15:13)
[2023-02-04] MEDS: Albuterol/Ipratropium NEB.SOL (2.5/0.5 MG) 3 ML NEB.SOLN INH PRN (16:34)
[2023-02-04] MEDS: Warfarin DAILY REMINDER **NOTE FOLLOW UP SCH (17:45)
[2023-02-04] MEDS: Senna TAB 8.6 mg TAB PO SCH (20:23)
[2023-02-05 04:12] LABS: ABS Basophils 0.1 10^3/uL (0.0-0.1); ABS Eosinophils 0.3 10^3/uL (0.0-0.5); ABS Lymphocytes 1.6 10^3/uL (1.0-4.8); ABS Monocytes 0.8 10^3/uL (0.0-1.1); ABS Neutrophils 5.9 10^3/uL (1.5-7.6); Hematocrit 28.8 % (38-53); Hemoglobin 9.6 g/dL (13.2-16.3); Lymphocyte % 18.7 %; Mean Corpuscular Hemoglobin 31.9 pg (27-33); Mean Corpuscular Hgb Conc 33.5 g/dL (31-36); Mean Corpuscular Volume 95.3 fL (80-97); Mean Platelet Volume 7.3 fL (7.5-11.2); Platelet Count 187 10^3/uL (150-450); Red Blood Count 3.02 10^6/uL (4.06-5.63); Red Cell Distribution Width 14.9 % (12-17); White Blood Count 8.6 10^3/uL (3.6-10.2)
[2023-02-05 04:38] LABS: INR 1.7 (0.83-1.13)
[2023-02-05 05:29] LABS: Calcium 8.7 mg/dL (8.6-10.3); Creatinine, Serum 1.18 mg/dL (0.67-1.17); Magnesium 1.9 mg/dL (1.9-2.7); Potassium 4.7 mmol/L (3.5-5.0); eGFR CKD-EPI 62.4 (>60)
[2023-02-05] MEDS ORDERED: Furosemide 40 mg/4 ml IV VIAL IV ONE (12:39)
[2023-02-05] MEDS: Warfarin DAILY REMINDER **NOTE FOLLOW UP SCH (16:54)
[2023-02-05] MEDS: Senna TAB 8.6 mg TAB PO SCH (20:56)
[2023-02-06 04:20] LABS: ABS Basophils 0.1 10^3/uL (0.0-0.1); ABS Eosinophils 0.3 10^3/uL (0.0-0.5); ABS Lymphocytes 1.6 10^3/uL (1.0-4.8); ABS Neutrophils 4.7 10^3/uL (1.5-7.6); Eosinophil % 4.1 %; Hematocrit 28.5 % (38-53); Hemoglobin 9.6 g/dL (13.2-16.3); Lymphocyte % 21.4 %; Mean Corpuscular Hemoglobin 32.1 pg (27-33); Mean Corpuscular Hgb Conc 33.6 g/dL (31-36); Mean Corpuscular Volume 95.3 fL (80-97); Mean Platelet Volume 7.4 fL (7.5-11.2); Platelet Count 200 10^3/uL (150-450); Red Blood Count 2.99 10^6/uL (4.06-5.63); Red Cell Distribution Width 14.5 % (12-17); White Blood Count 7.7 10^3/uL (3.6-10.2)
[2023-02-06 04:36] LABS: Calcium 8.8 mg/dL (8.6-10.3); Creatinine, Serum 1.16 mg/dL (0.67-1.17); Magnesium 1.8 mg/dL (1.9-2.7); Potassium 4.7 mmol/L (3.5-5.0); eGFR CKD-EPI 63.7 (>60)
[2023-02-06 04:53] LABS: INR 1.57 (0.83-1.13)
[2023-02-06] MEDS ORDERED: Magnesium Sulfate 2 gm BAG 2 GM/50 ML BAG IVPB ONE (05:25)
[2023-02-06] MEDS ORDERED: Iron Sucrose 200 MG in NS 0.9% 100 ml BAG 100 ML IVPB ONE (15:19)
[2023-02-06] MEDS: Fluticasone NASAL SPRAY 50MCG 16 gm SPRAY BTL BOTH NARES SCH (15:48)
[2023-02-06 18:47] LABS: Ferritin 643.3 ng/mL (24-336)
[2023-02-06] MEDS: Neomycin/Polym/Bacit TOP OINT 15 GM TOPICAL SCH (20:53)
[2023-02-06] MEDS: Senna TAB 8.6 mg TAB PO SCH (20:54)
[2023-02-07 05:37] LABS: ABS Basophils 0.1 10^3/uL (0.0-0.1); ABS Eosinophils 0.3 10^3/uL (0.0-0.5); ABS Monocytes 0.8 10^3/uL (0.0-1.1); Eosinophil % 4.2 %; Hemoglobin 9.7 g/dL (13.2-16.3); Lymphocyte % 27.5 %; Mean Corpuscular Hemoglobin 31.9 pg (27-33); Mean Corpuscular Hgb Conc 33.4 g/dL (31-36); Mean Corpuscular Volume 95.4 fL (80-97); Mean Platelet Volume 7.6 fL (7.5-11.2); Nucleated Red Blood Cells % 0.1 %/100WBC (0.0-0.8); Platelet Count 201 10^3/uL (150-450); Red Blood Count 3.04 10^6/uL (4.06-5.63); Red Cell Distribution Width 14.7 % (12-17); White Blood Count 7.2 10^3/uL (3.6-10.2)
[2023-02-07 05:44] LABS: INR 1.51 (0.83-1.13)
[2023-02-07 05:53] LABS: Calcium 8.7 mg/dL (8.6-10.3); Creatinine, Serum 1.19 mg/dL (0.67-1.17); eGFR CKD-EPI 61.8 (>60)
[2023-02-07] MEDS: Fluticasone NASAL SPRAY 50MCG 16 gm SPRAY BTL BOTH NARES SCH (10:15)
[2023-02-07] MEDS: Warfarin DAILY REMINDER **NOTE FOLLOW UP SCH ×2 (10:16→21:56)
[2023-02-07] MEDS: Neomycin/Polym/Bacit TOP OINT 15 GM TOPICAL SCH ×2 (10:19→21:57)
[2023-02-07] MEDS ORDERED: Furosemide 20 mg/2 ml IV VIAL IV ONE (13:00)
[2023-02-07] MEDS ORDERED: Iodixanol (CONTRAST) 320 MG/ML 100 ML SDV IV ONE (18:37)
[2023-02-07 19:15] LABS: INR 1.43 (0.83-1.13)
[2023-02-07 19:45] LABS: PCO2 Arterial 53 mmHg (35-45); PO2 Arterial 90 mmHg (80-100)
[2023-02-07] MEDS: Furosemide 40 mg/4 ml IV VIAL IV SLOW PU SCH (21:56)
[2023-02-07] MEDS: Enoxaparin 100 MG/ML SYR SUBCUT SCH (21:57)
[2023-02-07] MEDS: Senna TAB 8.6 mg TAB PO SCH (21:58)
[2023-02-08 06:14] LABS: ABS Basophils 0.2 10^3/uL (0.0-0.1); ABS Eosinophils 0.3 10^3/uL (0.0-0.5); ABS Monocytes 0.9 10^3/uL (0.0-1.1); ABS Neutrophils 3.7 10^3/uL (1.5-7.6); ABS Nucleated RBC 0.01 10^3/ul; Eosinophil % 3.8 %; Hematocrit 29.8 % (38-53); Lymphocyte % 28.8 %; Mean Corpuscular Hemoglobin 31.9 pg (27-33); Mean Corpuscular Hgb Conc 33.7 g/dL (31-36); Mean Corpuscular Volume 94.7 fL (80-97); Mean Platelet Volume 7.5 fL (7.5-11.2); Nucleated Red Blood Cells % 0.1 %/100WBC (0.0-0.8); Platelet Count 217 10^3/uL (150-450); Red Blood Count 3.14 10^6/uL (4.06-5.63); Red Cell Distribution Width 14.8 % (12-17)
[2023-02-08 06:22] LABS: INR 1.52 (0.83-1.13)
[2023-02-08 07:09] LABS: Creatinine, Serum 1.32 mg/dL (0.67-1.17); Potassium 4.6 mmol/L (3.5-5.0); eGFR CKD-EPI 54.5 (>60)
[2023-02-08 07:10] LABS: Calcium 8.9 mg/dL (8.6-10.3)
[2023-02-08] MEDS: Albuterol/Ipratropium NEB.SOL (2.5/0.5 MG) 3 ML NEB.SOLN INH PRN (09:40)
[2023-02-08] MEDS: Enoxaparin 100 MG/ML SYR SUBCUT SCH ×2 (10:08→19:58)
[2023-02-08] MEDS: Fluticasone NASAL SPRAY 50MCG 16 gm SPRAY BTL BOTH NARES SCH (10:08)
[2023-02-08] MEDS: Furosemide 40 mg/4 ml IV VIAL IV SLOW PU SCH ×2 (10:08→20:00)
[2023-02-08] MEDS: Neomycin/Polym/Bacit TOP OINT 15 GM TOPICAL SCH ×2 (10:09→19:57)
[2023-02-08] MEDS: Warfarin DAILY REMINDER **NOTE FOLLOW UP SCH (17:16)
[2023-02-08] MEDS: Senna TAB 8.6 mg TAB PO SCH (20:00)
[2023-02-09 07:02] LABS: ABS Basophils 0.2 10^3/uL (0.0-0.1); ABS Eosinophils 0.2 10^3/uL (0.0-0.5); ABS Lymphocytes 2.3 10^3/uL (1.0-4.8); ABS Monocytes 1.2 10^3/uL (0.0-1.1); ABS Neutrophils 4.9 10^3/uL (1.5-7.6); Eosinophil % 2.4 %; Hematocrit 30.4 % (38-53); Hemoglobin 10.1 g/dL (13.2-16.3); Lymphocyte % 26.1 %; Mean Corpuscular Hemoglobin 31.3 pg (27-33); Mean Corpuscular Hgb Conc 33.2 g/dL (31-36); Mean Corpuscular Volume 94.3 fL (80-97); Mean Platelet Volume 7.4 fL (7.5-11.2); Platelet Count 219 10^3/uL (150-450); Red Blood Count 3.22 10^6/uL (4.06-5.63); Red Cell Distribution Width 14.6 % (12-17); White Blood Count 8.8 10^3/uL (3.6-10.2)
[2023-02-09 07:18] LABS: Calcium 8.6 mg/dL (8.6-10.3); Creatinine, Serum 1.64 mg/dL (0.67-1.17); Magnesium 1.7 mg/dL (1.9-2.7); Potassium 4.3 mmol/L (3.5-5.0)
[2023-02-09] MEDS: Enoxaparin 100 MG/ML SYR SUBCUT SCH ×3 (08:54→20:00)
[2023-02-09] MEDS: Fluticasone NASAL SPRAY 50MCG 16 gm SPRAY BTL BOTH NARES SCH (08:58)
[2023-02-09] MEDS ORDERED: Magnesium Sulfate 2 gm BAG 2 GM/50 ML BAG IVPB ONE (09:37)
[2023-02-09 10:33] LABS: INR 1.7 (0.83-1.13)
[2023-02-09] MEDS: Neomycin/Polym/Bacit TOP OINT 15 GM TOPICAL SCH ×2 (13:37→19:24)
[2023-02-09] MEDS: Warfarin DAILY REMINDER **NOTE FOLLOW UP SCH (17:11)
[2023-02-09] MEDS: Senna TAB 8.6 mg TAB PO SCH (19:58)
[2023-02-10 07:14] LABS: ABS Basophils 0.1 10^3/uL (0.0-0.1); ABS Eosinophils 0.3 10^3/uL (0.0-0.5); ABS Lymphocytes 2.8 10^3/uL (1.0-4.8); ABS Neutrophils 3.8 10^3/uL (1.5-7.6); Eosinophil % 3.3 %; Hematocrit 32.2 % (38-53); Hemoglobin 10.7 g/dL (13.2-16.3); Lymphocyte % 34.9 %; Mean Corpuscular Hemoglobin 31.5 pg (27-33); Mean Corpuscular Hgb Conc 33.2 g/dL (31-36); Mean Corpuscular Volume 94.9 fL (80-97); Mean Platelet Volume 7.6 fL (7.5-11.2); Nucleated Red Blood Cells % 0.1 %/100WBC (0.0-0.8); Platelet Count 268 10^3/uL (150-450); Red Blood Count 3.39 10^6/uL (4.06-5.63); Red Cell Distribution Width 14.8 % (12-17)
[2023-02-10 07:22] LABS: INR 1.5 (0.83-1.13)
[2023-02-10 07:32] LABS: Calcium 8.9 mg/dL (8.6-10.3); Creatinine, Serum 1.58 mg/dL (0.67-1.17); Magnesium 2.1 mg/dL (1.9-2.7); Potassium 4.4 mmol/L (3.5-5.0); eGFR CKD-EPI 43.9 (>60)
[2023-02-10] MEDS: Fluticasone NASAL SPRAY 50MCG 16 gm SPRAY BTL BOTH NARES SCH (08:30)
[2023-02-10] MEDS: Neomycin/Polym/Bacit TOP OINT 15 GM TOPICAL SCH (09:08)
[2023-02-10] MEDS: Enoxaparin 100 MG/ML SYR SUBCUT SCH (09:08)
[2023-02-10 10:25] VITALS: BP 100/68
== END 2023-02-10 12:40 | disposition left against medical advice (07) | DRG 291 ==
LOC: ED 09:14 → SUATTDRO 11:31 → EDHOLD 11:31 → ICU 16:43 → MED 02-07 07:57
PROVIDERS: ADMIT Student in an Organized Health Care Education/Training Program; ATTEND Hospitalist